=== PATIENT | male | born 1995 | race Caucasian/White ===

== ENCOUNTER 2017-02-16 22:12 | Emergency (ER) | payer OTHER ==
[~2017-02-16] VITALS: Ht 175.3 cm; Wt 99.8 kg
[~2017-02-16 22:12] MED LIST: ACET1TAB12 PO; AMOX500C2 PO; CPR500T PO; HYDR-34 PO; HYDR1CAP2 PO; IBP200T PO; METR500T PO; NAPR-243 PO; PRED20TA PO; TRAM50TA2 PO
[2017-02-16] MEDS ORDERED: SULF1TAB35 PO (22:40)
--- NOTE | 2017-02-16 22:40 | ED Integumentary General ---
General Chief Complaint: Skin/Wound Problems Stated Complaint: SPIDER BITE Source: patient Exam Limitations: no limitations History of Present Illness Time seen by provider: 22:37 Initial Comments Patient was "bitten" by something a few days ago while doing yard work. He has a red tender warm area to his right lower lang[place]. No fevers. Allergies and Home Medications Allergies Coded Allergies: No Known Drug Allergies (Unverified , 02/27/09) Home Medications Sulfamethoxazole/Trimethoprim 1 Each Tablet, 1 EACH PO BID for 14 Days Prescribed by: MARCO A MCCOLLUM on 02/16/17 7290 Constitutional: no symptoms reported Respiratory: no symptoms reported Cardiovascular: no symptoms reported Skin: see HPI All Other Systems Reviewed Negative Unless Noted: Yes Past Mfejjlm-Jibyci-Iyapfs Hx Patient Social History Alcohol Use: Occasionally Uses Recreational Drug Use: No Smoking Status: Current Everyday Smoker Type Used: Cigarettes 2nd Hand Smoke Exposure: Yes Recent Foreign Travel: No Contact w/Someone Who Travel: No Recent Hopitalizations: No Seasonal Allergies Seasonal Allergies: No Surgeries HX Surgeries: No Respiratory Hx Respiratory Disorders: No Cardiovascular Hx Cardiac Disorders: No Neurological Hx Neurological Disorders: No Reproductive System Hx Reproductive Disorders: No Genitourinary Hx Genitourinary Disorders: No Gastrointestinal Hx Gastrointestinal Disorders: No Musculoskeletal Hx Musculoskeletal Disorders: Yes (chronic left ankle pain 5 years) Musculoskeletal Disorders: Arthritis Endocrine Hx Endocrine Disorders: No HEENT HX ENT Disorders: No Cancer Hx Cancer: No Psychosocial Hx Psychiatric Problems: No Integumentary HX Skin/Integumentary Disorder: No Blood Transfusions Hx Blood Disorders: No Reviewed Nursing Assessment Reviewed/Agree w Nursing PMH: Yes Family Medical History Significant Family History: No Pertinent Family Hx Physical Exam Vital Signs Vital Sign - Last 12Hours 02/16/17 22:30 Temp 98.9 Pulse 116 Resp 20 B/P (MAP) 154/96 Pulse Ox 100 O2 Delivery Room Air Capillary Refill : General Appearance: WD/WN, no apparent distress Neck: supple Cardiovascular: regular rate, rhythm Respiratory: lungs clear Gastrointestinal: soft Neurologic/Psychiatric: alert, normal mood/affect Skin: other (there is a 5 x 5 cm area of redness indurated skin over the right distal langford) Progress/Results/Core Measures Results/Orders My Orders Orders - MARCO A MCCOLLUM MD Sulfamethoxazole/Trimet Ds Tab (Bactrim (02/16/17 22:45) Ibuprofen Tablet (Motrin Tablet) (02/16/17 22:45) Medications Given in ED Current Medications Medications Dose Ordered Sig/Jeffrey Route Start Time Stop Time Status Last Admin Dose Admin Ibuprofen 800 mg ONCE ONCE PO 02/16/17 22:45 02/16/17 22:46 DC 02/16/17 22:45 800 MG Trimethoprim/ Sulfamethoxazole 2 ea ONCE ONCE PO 02/16/17 22:45 02/16/17 22:46 DC 02/16/17 22:45 2 EA Vital Signs/I&O Vital Sign - Last 12Hours 02/16/17 22:30 Temp 98.9 Pulse 116 Resp 20 B/P (MAP) 154/96 Pulse Ox 100 O2 Delivery Room Air Departure Impression Impression: Primary Impression: infected insect bite right langford Disposition: 01 HOME, SELF-CARE Condition: Stable Departure-Patient Inst. Decision time for Depature: 22:39 Referrals: MSITA HERNANDEZ DO (PCP/Family) Primary Care Physician Patient Instructions: Cellulitis (Skin Infection), Adult (DC) Add. Discharge Instructions: Keep leg elevated .All discharge instructions reviewed with patient and/or family. Voiced understanding. Scripts Sulfamethoxazole/Trimethoprim (Bactrim Ds Tablet) 1 Each Tablet 1 EACH PO BID for 14 Days, TAB Prov: MARCO A MCCOLLUM MD 02/16/17 MARCO A MCCOLLUM MD February 16, 2017 22:40
[2017-02-16] MEDS ORDERED: TRIM/SULFAMETH 160/800 (SEPTRA DS) TAB PO ONE (22:45)
[2017-02-16] MEDS ORDERED: IBUPROFEN 800 MG (MOTRIN) TAB PO ONE (22:45)
[2017-02-16 23:01] VITALS: BP 0/0
== END 2017-02-16 23:01 | disposition home or self-care (01) ==
LOC: EDUNIT# 22:12 → ER 22:15
DX: S80.861A Insect bite (nonvenomous), right lower leg, initial encounter (principal); F17.210 Nicotine dependence, cigarettes, uncomplicated; W57.XXXA Bitten or stung by nonvenomous insect and other nonvenomous arthropods, initial encounter; Y99.8 Other external cause status
CPT/HCPCS: 99281

== ENCOUNTER 2018-01-15 14:55 | Emergency (ER) | payer OTHER ==
[~2018-01-15] VITALS: Ht 175.3 cm; Wt 99.8 kg
[~2018-01-15 14:55] MED LIST changes: +SULF1TAB35 PO
--- OUTSIDE RECORDS SUMMARY | 2018-01-15 15:22 | XMS REPORT | Continuity of Care Document ---
Author Author [facility] Organization [facility] Address Unknown Phone Unavailable Allergies Active Description Code Type Severity Reaction Onset Reported/Identified Relationship to Patient Clinical Status Yes No Known Drug Allergies [id number] Drug Allergy Mild N/A 02/27/2009 Medications There is no data. Problems Date Dx Coded Attending Type Code Diagnosis Diagnosed By 04/21/2010 Ot 525.9 04/06/2013 DONN NESS, MARY Aguila Ot 558.9 NONINF GASTROENTERIT NEC 04/06/2013 MARY POP MD Ot 599.0 URIN TRACT INFECTION NOS 04/06/2013 MARY POP MD Ot 789.07 ABDOMINAL PAIN, GENERALIZED 03/11/2015 JOAN GO Ot 719.47 JOINT PAIN-ANKLE 07/17/2015 JOAN GO Ot F17.210 NICOTINE DEPENDENCE, CIGARETTES, UNCOMPL 07/17/2015 JOAN GO Ot K02.9 DENTAL CARIES, UNSPECIFIED 07/17/2015 JOAN GO Ot K08.8 OTHER SPECIFIED DISORDERS OF TEETH AND S 02/28/2016 DEANN STEELE DO Ot F17.210 NICOTINE DEPENDENCE, CIGARETTES, UNCOMPL 02/28/2016 DEANN STEELE DO Ot S93.512A SPRAIN OF INTERPHALANGEAL JOINT OF LEFT 02/28/2016 DEANN STEELE DO Ot X58.XXXA EXPOSURE TO OTHER SPECIFIED FACTORS, INI 02/28/2016 DEANN STEELE DO Ot Y92.[address] IN [facility] NON-INSTITUT (PRIVATE 02/28/2016 DEANN STEELE DO Ot Y99.8 OTHER EXTERNAL CAUSE STATUS 02/29/2016 DEANN STEELE DO Ot F17.210 NICOTINE DEPENDENCE, CIGARETTES, UNCOMPL 02/29/2016 DEANN STEELE DO Ot S93.512A SPRAIN OF INTERPHALANGEAL JOINT OF LEFT 02/29/2016 DEANN STEELE DO Ot X58.XXXA EXPOSURE TO OTHER SPECIFIED FACTORS, INI 02/29/2016 DEANN STEELE DO Ot Y92.[address] IN [facility] NON-INSTITUT (PRIVATE 02/29/2016 DEANN STEELE DO Ot Y99.8 OTHER EXTERNAL CAUSE STATUS 02/29/2016 IVETTE , DEANN Robins Ot F17.210 NICOTINE DEPENDENCE, CIGARETTES, UNCOMPL 02/29/2016 IVETTE ARCINIEGA, DEANN Robins Ot S93.512A SPRAIN OF INTERPHALANGEAL JOINT OF LEFT 02/29/2016 DEANN STEELE DO Ot X58.XXXA EXPOSURE TO OTHER SPECIFIED FACTORS, INI 02/29/2016 IVETTE ARCINIEGA, DEANN Robins Ot Y92.[address] IN [facility] NON-INSTITUT (PRIVATE 02/29/2016 IVETTE ARCINIEGA, DEANN Robins Ot Y99.8 OTHER EXTERNAL CAUSE STATUS 02/16/2017 CHUN NESS, MARCO A Hein Ot F17.210 NICOTINE DEPENDENCE, CIGARETTES, UNCOMPL 02/16/2017 CHUN NESS, MARCO A Hein Ot S80.861A INSECT BITE (NONVENOMOUS), RIGHT LOWER L 02/16/2017 MARCO A MCCOLLUM MD Ot W57.XXXA BIT/STUNG BY NONVENOM INSECT OTH NONVE 02/16/2017 MARCO A MCCOLLUM MD Ot Y99.8 OTHER EXTERNAL CAUSE STATUS Procedures There is no data. Results There is no data. Encounters ACCT No. Visit Date/Time Discharge Status Pt. Type Provider Facility Loc./Unit Complaint [id number] 02/16/2017 22:15:00 02/16/2017 23:01:00 DIS Emergency MARCO A MCCOLLUM MD [facility] ER SPIDER BITE [id number] 02/28/2016 09:38:00 02/28/2016 10:37:00 DIS Emergency DEANN STEELE DO [facility] ER ALTERCATION/LEFT FOOT PAIN [id number] 07/17/2015 19:21:00 07/17/2015 21:05:00 DIS Emergency JOAN GO [facility] ER DENTAL PAIN [id number] 03/11/2015 19:37:00 03/11/2015 21:34:00 DIS Emergency JOAN GO [facility] ER L LEG PAIN [id number] 04/06/2013 18:18:00 04/06/2013 23:09:00 DIS Thais POP MD, MARY Aguila [facility] ER ABD PAIN [id number] 04/21/2010 19:46:00 Document Registration [email or web address] 03/11/2015 19:38:03 ACT Document Registration
--- NOTE | 2018-01-15 15:24 | ED Lower Extremity ---
General Chief Complaint: Lower Extremity Stated Complaint: LT ANKLE INJ Nursing Triage Note: PT STATES HX OF LT ANKLE FX/PAIN, YESTERDAY PT WAS DOING YARD WORK AND SLIPPED, TWISTING HIS LT ANKLE. Nursing Sepsis Screen: No Definite Risk History of Present Illness Date Seen by Provider: Jan 15, 2018 Time Seen by Provider: 15:10 Initial Comments 23-year-old male presents for left ankle pain, he reports that he was walking in his yard yesterday and twisted his left ankle. He's had multiple sprains in the past. No other injuries reported. He took no pain medication prior to arrival. Onset: yesterday Pain/Injury Location: left ankle Method of Injury: twisted Modifying Factors: Improves With Rest Allergies and Home Medications Allergies Coded Allergies: No Known Drug Allergies (Unverified , 02/27/09) Home Medications Sulfamethoxazole/Trimethoprim 1 Each Tablet, 1 EACH PO BID Prescribed by: MARCO A MCCOLLUM on 02/16/17 2240 Patient Home Medication List Home Medication List Reviewed: Yes Constitutional: no symptoms reported, see HPI Musculoskeletal: see HPI, joint pain (left ankle pain), joint swelling (left ankle) All Other Systems Reviewed Negative Unless Noted: Yes Past Sbsvgck-Ldmetr-Dkplcw Hx Past Med/Social Hx: Reviewed Nursing Past Med/Soc Hx Patient Social History Alcohol Use: Rarely Uses Alcohol Beverage of Choice: Beer, Rum Recreational Drug Use: Yes (THC, METH 2 DAYS AGO, HX OF IV) Smoking Status: Current Everyday Smoker Type Used: Cigarettes 2nd Hand Smoke Exposure: Yes Recent Foreign Travel: No Contact w/Someone Who Travel: No Recent Infectious Disease Expo: No Recent Hopitalizations: No Seasonal Allergies Seasonal Allergies: No Past Medical History Surgeries: No Respiratory: No Cardiac: No Neurological: No Reproductive Disorders: No Genitourinary: No Gastrointestinal: No Musculoskeletal: Yes (chronic left ankle pain 5 years) Arthritis Endocrine: No HEENT: No Cancer: No Psychosocial: No Integumentary: No Blood Disorders: No Family Medical History No Pertinent Family Hx Physical Exam Vital Signs Vital Signs - First Documented 01/15/18 15:04 Temp 97.4 Pulse 115 Resp 20 B/P (MAP) 157/85 (109) Pulse Ox 99 O2 Delivery Room Air Capillary Refill : Less Than 3 Seconds General Appearance: WD/WN, no apparent distress Cardiovascular: normal peripheral pulses, regular rate, rhythm Respiratory: chest non-tender, lungs clear, normal breath sounds Ankles: left ankle bone tenderness (distal fibula), left ankle limited range of motion (secondary to pain), left ankle soft tissue tenderness (over ATFL), left ankle swelling (soft tissue) Progress/Results/Core Measures My Orders Orders - WALLY HARTMANN Ankle, Left, 3 Views (01/15/18 15:26) Acetaminophen Tablet/Caplet (Tylenol T (01/15/18 15:26) Vital Signs/I&O 01/15/18 01/15/18 01/15/18 15:04 15:40 16:20 Temp 97.4 97.4 97.4 Pulse 115 115 Resp 20 20 B/P (MAP) 157/85 (109) 157/85 (109) Pulse Ox 99 99 O2 Delivery Room Air Room Air Blood Pressure Mean: 109 Progress Note : Time: 15:10 Progress Note Initial evaluation completed, recommended acetaminophen 650 mg and x-rays of the left ankle. 1600 x-ray show no acute bony abnormalities, 4 inch Jose Angel wrap applied and air cast. Discharge instructions and return precautions reviewed. Diagonstic Imaging: Xray Plain Films/CT/US/NM/MRI: ankle Comments NAME: SARA CASTELLANOS MED REC#: [id number] PT STATUS: REG ER : 1995 PHYSICIAN: WALLY HARTMANN ADMIT DATE: 01/15/18/ER Signed Date of Exam: 01/15/18 ANKLE, LEFT, 3 VIEWS INDICATION: Fall with pain and swelling to the left ankle. TIME OF EXAM: 03:58 p.m. FINDINGS: Three views of the left ankle were obtained. Alignment is normal. There is a well-corticated osseous density noted at the talonavicular joint, similar to prior ankle radiograph from 03/11/2015 likely an old fracture. Ankle mortise is well maintained. The talar dome is smooth. No acute fracture or dislocation is identified. IMPRESSION: No acute bony abnormality is detected. Dictated by: Dictated on workstation # [id number] Dict: 01/15/18 1540 Trans: 01/15/18 7250 Interpreted by: JASPER BOOKER MD Electronically signed by: JASPER BOOKER MD 01/15/18 1550 Reviewed: Reviewed by Me Departure Impression Primary Impression: Left ankle sprain Qualified Codes: S93.492A - Sprain of other ligament of left ankle, initial encounter Disposition: HOME, SELF-CARE Condition: Stable Departure-Patient Inst. Decision time for Depature: 15:50 Referrals: SMITA HERNANDEZ DO (PCP/Family) Primary Care Physician Patient Instructions: Ankle Sprain (DC) Add. Discharge Instructions: Ice to left ankle 20 minutes every 2 hours. Elevate left ankle higher than your heart. Follow-up with your primary care provider if symptoms are not improving in 2-3 days. Use Aircast and Jose Angel wrap as needed. Follow-up and emergency department for urgent health care needs. You may take ibuprofen 600 mg alternating with Tylenol 650 mg every 4 hours for pain and swelling. All discharge instructions reviewed with patient and/or family. Voiced understanding. WALLY HARTMANN Jan 15, 2018 15:24
[2018-01-15] MEDS: ACETAMINOPHEN 325 MG TABLET/CAPLET (TYLENOL) PO STA (15:40)
--- NOTE | 2018-01-15 15:45 | Diagnostic Imaging Report ---
INDICATION: Fall with pain and swelling to the left ankle. TIME OF EXAM: 03:58 p.m. FINDINGS: Three views of the left ankle were obtained. Alignment is normal. There is a well-corticated osseous density noted at the talonavicular joint, similar to prior ankle radiograph from 03/11/2015 likely an old fracture. Ankle mortise is well maintained. The talar dome is smooth. No acute fracture or dislocation is identified. IMPRESSION: No acute bony abnormality is detected. Dictated by: Dictated on workstation # [id number]
[2018-01-15 16:20] VITALS: BP 157/85
== END 2018-01-15 16:24 | disposition home or self-care (01) ==
LOC: EDUNIT# 14:55 → ER 14:57
DX: S93.402A Sprain of unspecified ligament of left ankle, initial encounter (principal); F12.10 Cannabis abuse, uncomplicated; F15.10 Other stimulant abuse, uncomplicated; F17.210 Nicotine dependence, cigarettes, uncomplicated; X50.0XXA Overexertion from strenuous movement or load, initial encounter; Y92.007 Garden or yard of unspecified non-institutional (private) residence as the place of occurrence of the external cause; Y93.01 Activity, walking, marching and hiking
CPT/HCPCS: 73610

== ENCOUNTER 2018-03-04 17:48 | Emergency (ER) | payer OTHER ==
[~2018-03-04] VITALS: Ht 177.8 cm; Wt 136.1 kg
--- OUTSIDE RECORDS SUMMARY | 2018-03-04 17:54 | XMS REPORT | Continuity of Care Document ---
Author Author [facility] Organization [facility] Address Unknown Phone Unavailable Allergies Active Description Code Type Severity Reaction Onset Reported/Identified Relationship to Patient Clinical Status Yes No Known Drug Allergies [id number] Drug Allergy Mild N/A 02/27/2009 Medications There [...] SPECIFIED DISORDERS OF TEETH AND S 02/28/2016 RAFAELA STEELE DOA Julienne Ot F17.210 NICOTINE DEPENDENCE, CIGARETTES, UNCOMPL 02/28/2016 DEANN STEELE DO Ot S93.512A SPRAIN OF INTERPHALANGEAL JOINT OF LEFT 02/28/2016 RAFAELA STEELE DOA Julienne Ot X58.XXXA EXPOSURE TO OTHER SPECIFIED FACTORS, INI 02/28/2016 DEANN STEELE DO Ot Y92.[address] IN [facility] NON-INSTITUT (PRIVATE 02/28/2016 DEANN STEELE DO Ot Y99.8 OTHER EXTERNAL CAUSE STATUS 02/29/2016 DEANN STEELE DO Ot F17.210 NICOTINE DEPENDENCE, CIGARETTES, UNCOMPL 02/29/2016 DEANN STEELE DO Ot S93.512A SPRAIN OF INTERPHALANGEAL JOINT OF LEFT 02/29/2016 IVETTE DO, DEANN K Ot X58.XXXA EXPOSURE TO OTHER SPECIFIED FACTORS, INI 02/29/2016 IVETTE DO, DEANN K Ot Y92.[address] IN [facility] NON-[facility] (PRIVATE 02/29/2016 IVETTE DO, DEANN K Ot Y99.8 OTHER EXTERNAL CAUSE STATUS 02/29/2016 IVETTE DO, DEANN K Ot F17.210 NICOTINE DEPENDENCE, CIGARETTES, UNCOMPL 02/29/2016 IVETTE DO, DEANN K Ot S93.512A SPRAIN OF INTERPHALANGEAL JOINT OF LEFT 02/29/2016 IVETTE DO, DEANN K Ot X58.XXXA EXPOSURE TO OTHER SPECIFIED FACTORS, INI 02/29/2016 IVETTE DO, DEANN K Ot Y92.[address] IN [facility] NON-[facility] (PRIVATE 02/29/2016 IVETTE DO, DEANN K Ot Y99.8 OTHER EXTERNAL CAUSE STATUS 02/16/2017 CHUN NESS, MARCO A Hein Ot F17.210 NICOTINE DEPENDENCE, CIGARETTES, UNCOMPL 02/16/2017 CHUN NESS, MARCO A A Ot S80.861A INSECT BITE (NONVENOMOUS), RIGHT LOWER L 02/16/2017 CHUN NESS, MARCO A A Ot W57.XXXA BIT/STUNG BY NONVENOM INSECT OTH NONVE 02/16/2017 CHUN NESS, MARCO A A Ot Y99.8 OTHER EXTERNAL CAUSE STATUS 01/15/2018 SHAHBAZ, WALLY CLINICAL QUALITY ASSURANCE ASSOCIATE Ot F12.10 CANNABIS ABUSE, UNCOMPLICATED 01/15/2018 SHAHBAZ, WALLY CLINICAL QUALITY ASSURANCE ASSOCIATE Ot F15.10 OTHER STIMULANT ABUSE, UNCOMPLICATED 01/15/2018 SHAHBAZ, WALLY CLINICAL QUALITY ASSURANCE ASSOCIATE Ot F17.210 NICOTINE DEPENDENCE, CIGARETTES, UNCOMPL 01/15/2018 SHAHBAZ, WALLY CLINICAL QUALITY ASSURANCE ASSOCIATE Ot S93.402A SPRAIN OF UNSPECIFIED LIGAMENT OF LEFT A 01/15/2018 SHAHBAZ, WALLY CLINICAL QUALITY ASSURANCE ASSOCIATE Ot X50.0XXA OVEREXERTION FROM STRENUOUS MOVEMENT OR 01/15/2018 SHAHBAZ WALLY CLINICAL QUALITY ASSURANCE ASSOCIATE Ot Y92.007 [place]ARD[place] OR YARD OF [facility] RESI 01/15/2018 SHAHBAZ WALLY CLINICAL QUALITY ASSURANCE ASSOCIATE Ot Y93.01 ACTIVITY, WALKING, MARCHING AND HIKING 01/17/2018 SHAHBAZ, WALLY CLINICAL QUALITY ASSURANCE ASSOCIATE Ot F12.10 CANNABIS ABUSE, UNCOMPLICATED 01/17/2018 SHAHBAZ, WALLY CLINICAL QUALITY ASSURANCE ASSOCIATE Ot F15.10 OTHER STIMULANT ABUSE, UNCOMPLICATED 01/17/2018 SHAHBAZ, WALLY CLINICAL QUALITY ASSURANCE ASSOCIATE Ot F17.210 NICOTINE DEPENDENCE, CIGARETTES, UNCOMPL 01/17/2018 SHAHBAZ, WALLY CLINICAL QUALITY ASSURANCE ASSOCIATE Ot S93.402A SPRAIN OF UNSPECIFIED LIGAMENT OF LEFT A 01/17/2018 SHAHBAZ, WALLY CLINICAL QUALITY ASSURANCE ASSOCIATE Ot X50.0XXA OVEREXERTION FROM STRENUOUS MOVEMENT OR 01/17/2018 SHAHBAZ, WALLY CLINICAL QUALITY ASSURANCE ASSOCIATE Ot Y92.007 [place] OR [place] OF [facility] NON-INSTITUT RESI 01/17/2018 SHAHBAZ, WALLY CLINICAL QUALITY ASSURANCE ASSOCIATE Ot Y93.01 ACTIVITY, WALKING, MARCHING AND HIKING 01/21/2018 SHAHBAZ, WALLY CLINICAL QUALITY ASSURANCE ASSOCIATE Ot F12.10 CANNABIS ABUSE, UNCOMPLICATED 01/21/2018 SHAHBAZ, WALLY CLINICAL QUALITY ASSURANCE ASSOCIATE Ot F15.10 OTHER STIMULANT ABUSE, UNCOMPLICATED 01/21/2018 SHAHBAZ, WALLY CLINICAL QUALITY ASSURANCE ASSOCIATE Ot F17.210 NICOTINE DEPENDENCE, CIGARETTES, UNCOMPL 01/21/2018 SHAHBAZ, WALLY CLINICAL QUALITY ASSURANCE ASSOCIATE Ot S93.402A SPRAIN OF UNSPECIFIED LIGAMENT OF LEFT A 01/21/2018 SHAHBAZ, WALLY CLINICAL QUALITY ASSURANCE ASSOCIATE Ot X50.0XXA OVEREXERTION FROM STRENUOUS MOVEMENT OR 01/21/2018 SHAHBAZ, WALLY CLINICAL QUALITY ASSURANCE ASSOCIATE Ot Y92.007 [place] OF [facility] NON-INSTITUT RESI 01/21/2018 SHAHBAZ, WALLY CLINICAL QUALITY ASSURANCE ASSOCIATE Ot Y93.01 ACTIVITY, WALKING, MARCHING AND HIKING Procedures There is no data. Results There is no data. Encounters ACCT No. Visit Date/Time Discharge Status Pt. Type Provider Facility Loc./Unit Complaint [id number] 01/15/2018 14:57:00 01/15/2018 16:24:00 DIS Emergency SHAHBAZWALLY Manley CLINICAL QUALITY ASSURANCE ASSOCIATE [facility] ER LT ANKLE INJ [id number] 02/16/2017 22:15:00 02/16/2017 23:01:00 DIS Emergency MARCO A MCCOLLUM MD [facility] ER SPIDER BITE [id number] 02/28/2016 09:38:00 02/28/2016 10:37:00 DIS Emergency DEANN STEELE DO [facility] ER ALTERCATION/LEFT FOOT PAIN [id number] 07/17/2015 19:21:00 07/17/2015 21:05:00 DIS Emergency JOAN GO [facility] ER DENTAL PAIN [id number] 03/11/2015 19:37:00 03/11/2015 21:34:00 DIS Emergency JOAN GO [facility] ER L LEG PAIN [id number] 04/06/2013 18:18:00 04/06/2013 23:09:00 DIS Emergency MARY POP MD [facility] ER ABD PAIN [id number] 04/21/2010 19:46:00 Document Registration [email or web address] 03/11/2015 19:38:03 ACT Document Registration
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
[2018-03-04 19:55] VITALS: BP 140/95
== END 2018-03-04 19:57 | disposition home or self-care (01) ==
LOC: EDUNIT# 17:48 → ER 17:50
DX: S06.0X0A Concussion without loss of consciousness, initial encounter (principal); S00.03XA Contusion of scalp, initial encounter; H53.8 Other visual disturbances; R22.1 Localized swelling, mass and lump, neck; Z77.22 Contact with and (suspected) exposure to environmental tobacco smoke (acute) (chronic); V49.50XA Passenger injured in collision with unspecified motor vehicles in traffic accident, initial encounter
CPT/HCPCS: 70450

== ENCOUNTER → 2018-03-13 | Outpatient (CLI) | payer OTHER ==
--- NOTE | 2018-03-13 16:28 | Diagnostic Imaging Report ---
PROCEDURE: US Thyroid. TECHNIQUE: Multiple real-time grayscale images were obtained of the thyroid in various projections. INDICATION: Thyromegaly. COMPARISON: None. FINDINGS: The right thyroid lobe measures 5.8 cm x 2.2 cm x 1.8 cm and the left lobe measures 5.2 cm x 1.8 cm x 1.4 cm. The isthmus measures about 3 mm. Thyroid gland is mildly heterogeneous. There is a 2.9 cm x 2.3 cm x 2 cm predominantly cystic nodule with some internal echoes and ring down artifact seen within the inferior aspect of the right thyroid lobe. This shows no internal vascularity, it is taller than wide and fairly circumscribed. This is a TI-RADS 1 lesion, not suspicious. No additional focal nodule is seen. IMPRESSION: 1. There is a 2.9 cm benign-appearing cystic nodule in the inferior right thyroid lobe. This may represent a colloid cyst. 2. The thyroid gland is otherwise mildly heterogeneous. No additional focal abnormality is suspected. Dictated by: Dictated on workstation # [id number]
== END ==
LOC: RAD 14:01
PROVIDERS: ATTEND Family Medicine
DX: E04.1 Nontoxic single thyroid nodule (principal)
CPT/HCPCS: 76536

== ENCOUNTER 2018-07-06 18:08 | Emergency (ER) | payer OTHER ==
[~2018-07-06] VITALS: Ht 172.7 cm; Wt 72.6 kg
--- OUTSIDE RECORDS SUMMARY | 2018-07-06 18:13 | XMS REPORT ---
Author Author VALERIY DIXON Organization [facility] Address [address] [place] [address] Care Team Providers Care Oracle Ebs Architect Name Role Phone VALERIY DIXON Unavailable PROBLEMS Type Condition ICD9-CM Code OBF49-NP Code Onset Dates Condition Status SNOMED Code Problem 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 Active 00021004 ALLERGIES No Information ENCOUNTERS Encounter Location Date Diagnosis [facility] [id number] [place] [phone] Feb, [facility] [address] [phone] Feb, 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 and Tachycardia R00.0 [facility] [id number] [place] [phone] Jun, Dental examination Z01.20 [facility] [id number] [place] [phone] Mar, [facility] [id number] [place] [id number] Jul, Dental examination Z01.20 and Dental caries K02.9 IMMUNIZATIONS No Known Immunizations SOCIAL HISTORY Never Assessed REASON FOR VISIT Returned call PLAN OF CARE VITAL SIGNS MEDICATIONS Unknown Medications RESULTS No Results PROCEDURES No Known procedures INSTRUCTIONS MEDICATIONS ADMINISTERED No Known Medications
--- OUTSIDE RECORDS SUMMARY | 2018-07-06 18:13 | XMS REPORT ---
Author Author VALERIY DIXON Organization [facility] Address [address] [place] [address] Care Team Providers Care Clinical Data Associate Name Role Phone VALERIY DIXON Unavailable PROBLEMS Type Condition ICD9-CM Code WHH19-CF Code Onset Dates Condition Status SNOMED Code Problem 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 Active [id number] ALLERGIES No Known Allergies ENCOUNTERS Encounter Location Date Diagnosis [facility] [address] [phone] Feb, [facility] [address] [phone] Feb, 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 and Tachycardia R00.0 [facility] [id number] [place] [phone] Jun, Dental examination Z01.20 [facility] [address] [phone] Mar, [facility] [address] [id number] Jul, Dental examination Z01.20 and Dental caries K02.9 IMMUNIZATIONS No Known Immunizations SOCIAL HISTORY Never Assessed REASON FOR VISIT lump in right side of neck x 3 weeks, patient states that it is difficult to swallow at times and it is often painful as well-awoods PLAN OF CARE Activity Details Follow Up 4 Weeks with uLcy bajwa labs and US Reason: VITAL SIGNS Height 70 in 2018-03-10 Weight 225.8 lbs 2018-03-10 Temperature 98.8 degrees Fahrenheit 2018-03-10 Heart Rate 108 bpm 2018-03-10 Respiratory Rate 20 2018-03-10 BMI 32.40 kg/m2 2018-03-10 Blood pressure systolic 154 mmHg 2018-03-10 Blood pressure diastolic 88 mmHg 2018-03-10 MEDICATIONS Medication Instructions Dosage Frequency Start Date End Date Duration Status Ibuprofen 400 MG Orally every 6 hrs 6h Active RESULTS No Results PROCEDURES Procedure Date Ordered Result Body Site COMPREHEN METABOLIC PANEL March 10, 2018 COMPLETE CBC W/AUTO DIFF WBC March 10, 2018 VENIPUNCT, ROUTINE* March 10, 2018 ASSAY OF PHOSPHORUS March 10, 2018 ASSAY OF MAGNESIUM March 10, 2018 ASSAY OF FREE THYROXINE March 10, 2018 ASSAY THYROID STIM HORMONE March 10, 2018 INSTRUCTIONS MEDICATIONS ADMINISTERED No Known Medications
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
[2018-07-06] MEDS ORDERED: NS IV 1000 ML 1,000 ML IV ONE (18:41)
[2018-07-06] MEDS ORDERED: KETOROLAC 30 MG/ML VIAL IVP STA (18:41)
[2018-07-06] MEDS ORDERED: DEXAMETHASONE 10 MG/ML (DECADRON) 1 ML VIAL IV ONE (18:45)
--- NOTE | 2018-07-06 18:48 | ED General ---
General Stated Complaint: CONGESTED,FEVER,SORE THROAT Source of Information: Patient Exam Limitations: No Limitations History of Present Illness Date Seen by Provider: Jul 06, 2018 Time Seen by Provider: 18:35 Initial Comments Here with report of 8 days of upper respiratory congestion that is worsening as well as sore throat, mild cough and fullness in the face of the head. States that he gets sinus infections. Reports this feels like that. Has not taken anything with regard antibiotics for that but he is taken 6 aspirins every 6 hours for tooth pain reportedly. Also reports that he has thyroid cancer that has not gotten treated. He found out about that about 6 months ago. He has not gone back for further evaluation. He had CT scan and ultrasound done here. Does report left upper tooth pain with the congestion. Timing/Duration: 1 Week, Getting Worse Severity: Moderate Associated Systoms: No Chest Pain, No Cough; Fever/Chills; No Nausea/Vomiting, No Shortness of Air, No Weakness Allergies and Home Medications Allergies Coded Allergies: No Known Drug Allergies (Unverified , 02/27/09) Home Medications Sulfamethoxazole/Trimethoprim 1 Each Tablet, 1 EACH PO BID Prescribed by: MARCO A MCCOLLUM on 02/16/17 5030 Patient Home Medication List Home Medication List Reviewed: Yes Review of Systems Review of Systems Constitutional: see HPI, chills, fever EENTM: ear pain, nose congestion, throat pain, throat swelling, other (sinus congestion and tenderness and ear pain on the left) Respiratory: see HPI Cardiovascular: No chest pain, No palpitations Gastrointestinal: No abdominal pain, No nausea, No vomiting Genitourinary: no symptoms reported Musculoskeletal: no symptoms reported Skin: no symptoms reported Psychiatric/Neurological: No Symptoms Reported All Other Systems Reviewed Negative Unless Noted: Yes Past Iwtndhb-Fydvzg-Mkfvkh Hx Past Med/Social Hx: Reviewed Nursing Past Med/Soc Hx Patient Social History Alcohol Use: Occasionally Uses Alcohol Beverage of Choice: Beer, Rum Recreational Drug Use: No Smoking Status: Current Everyday Smoker Type Used: Cigarettes 2nd Hand Smoke Exposure: Yes Recent Foreign Travel: No Contact w/Someone Who Travel: No Recent Hopitalizations: No Seasonal Allergies Seasonal Allergies: No Past Medical History Surgeries: Yes Ear Surgery Respiratory: No Cardiac: No Neurological: No Reproductive Disorders: No Genitourinary: No Gastrointestinal: No Musculoskeletal: Yes (chronic left ankle pain 5 years) Arthritis Endocrine: No HEENT: No Cancer: No Psychosocial: No Integumentary: No Blood Disorders: No Family Medical History Reviewed Nursing Family Hx Cancer Physical Exam Vital Signs Vital Signs - First Documented 07/06/18 18:32 Temp 98.5 Pulse 123 Resp 16 B/P (MAP) 155/95 (115) Pulse Ox 100 O2 Delivery Room Air Capillary Refill : Height, Weight, BMI Height: 5'10.00" Weight: 300lbs. oz. 136.879926md; 29.83 BMI Method:Estimated General Appearance: WD/WN, Mild Distress HEENT: PERRL/EOMI, Pharyngeal Erythema, Tonsillar Exudate, Tonsillar Enlargement, Other (tender to the maxillary sinuses left greater than right) Neck: Full Range of Motion, Supple, Lymphadenopathy (L), Lymphadenopathy (R) Respiratory: Lungs Clear, Normal Breath Sounds Cardiovascular: No Murmur, Tachycardia Gastrointestinal: Non Tender, Soft Back: Normal Inspection, No CVA Tenderness, No Vertebral Tenderness Extremity: Normal Range of Motion, Non Tender Neurologic/Psychiatric: Alert, Oriented x3 Skin: Normal Color, Warm/Dry Progress/Results/Core Measures Suspected Sepsis SIRS Temperature: Pulse: Respiratory Rate: Laboratory Tests 07/06/18 19:14: White Blood Count 9.8 Blood Pressure / Mean: Laboratory Tests 07/06/18 19:14: Creatinine 0.86, Platelet Count 168, Total Bilirubin 0.8 Results/Orders Lab Results Laboratory Tests Test 07/06/18 19:14 Range/Units White Blood Count 9.8 4.3-11.0 10^3/uL Red Blood Count 5.37 4.35-5.85 10^6/uL Hemoglobin 16.3 13.3-17.7 G/DL Hematocrit 45 40-54 % Mean Corpuscular Volume 83 80-99 FL Mean Corpuscular Hemoglobin 30 25-34 PG Mean Corpuscular Hemoglobin Concent 37 H 32-36 G/DL Red Cell Distribution Width 13.5 10.0-14.5 % Platelet Count 168 130-400 10^3/uL Mean Platelet Volume 9.9 7.4-10.4 FL Neutrophils (%) (Auto) 69 42-75 % Lymphocytes (%) (Auto) 19 12-44 % Monocytes (%) (Auto) 8 0-12 % Eosinophils (%) (Auto) 4 0-10 % Basophils (%) (Auto) 0 0-10 % Neutrophils # (Auto) 6.8 1.8-7.8 X 10^3 Lymphocytes # (Auto) 1.9 1.0-4.0 X 10^3 Monocytes # (Auto) 0.8 0.0-1.0 X 10^3 Eosinophils # (Auto) 0.4 H 0.0-0.3 10^3/uL Basophils # (Auto) 0.0 0.0-0.1 10^3/uL Sodium Level 139 135-145 MMOL/L Potassium Level 4.2 3.6-5.0 MMOL/L Chloride Level 103 98-107 MMOL/L Carbon Dioxide Level 24 21-32 MMOL/L Anion Gap 12 5-14 MMOL/L Blood Urea Nitrogen 8 7-18 MG/DL Creatinine 0.86 0.60-1.30 MG/DL Estimat Glomerular Filtration Rate > 60 BUN/Creatinine Ratio 9 Glucose Level 103 70-105 MG/DL Calcium Level 10.0 8.5-10.1 MG/DL Corrected Calcium 8.5-10.1 MG/DL Total Bilirubin 0.8 0.1-1.0 MG/DL Aspartate Amino Transf (AST/SGOT) 21 5-34 U/L Alanine Aminotransferase (ALT/SGPT) 43 0-55 U/L Alkaline Phosphatase 76 40-136 U/L Total Protein 7.7 6.4-8.2 GM/DL Albumin 4.7 H 3.2-4.5 GM/DL Salicylates Level < 5.0 L 5.0-20.0 MG/DL Acetaminophen Level < 10 L 10-30 UG/ML My Orders Orders - MARY POP MD Acetaminophen (07/06/18 18:41) Cbc With Automated Diff (07/06/18 18:41) Comprehensive Metabolic Panel (07/06/18 18:41) Salicylate (07/06/18 18:41) Saline Lock/Iv-Start (07/06/18 18:41) Ns Iv 1000 Ml (Sodium Chloride 0.9%) (07/06/18 18:41) Ketorolac Injection (Toradol Injection) (07/06/18 18:41) Dexamethasone Injection (Decadron Inject (07/06/18 18:45) Amoxicillin Capsule (Polymox Capsule) (07/06/18 20:10) Medications Given in ED Current Medications Medications Dose Ordered Sig/Jeffrey Route Start Time Stop Time Status Last Admin Dose Admin Dexamethasone Sodium Phosphate 10 mg ONCE ONCE IV 07/06/18 18:45 07/06/18 18:46 DC 07/06/18 19:45 10 MG Sodium Chloride 1,000 ml @ 0 mls/hr Q0M ONCE IV 07/06/18 18:41 07/06/18 18:43 DC 07/06/18 19:45 0 MLS/HR Vital Signs/I&O 07/06/18 18:32 Temp 98.5 Pulse 123 Resp 16 B/P (MAP) 155/95 (115) Pulse Ox 100 O2 Delivery Room Air Capillary Refill : Progress Note : Progress Note Seen and evaluated. I did review previous history and patient has a benign appearing cyst on the thyroid that this not give suspicion for cancer per radiology report on ultrasound. IV established due to tachycardia and the need to evaluate labs. We will check basic labs plus aspirin Tylenol level given patient's reported dosing for pain medicines. Patient does have findings consistent with strep pharyngitis as well as sinusitis so we will treat those. Monitor patient. 2014: Overall doing better with decreased heart rate. Labs reviewed and no significant findings. Discharged home with return precautions. Patient verbalize understanding instructions and agreement with plan. Started on amoxicillin 1000 mg by mouth times one now. Departure Impression Primary Impression: Acute sinusitis Qualified Codes: J01.00 - Acute maxillary sinusitis, unspecified Additional Impression: Pharyngitis Qualified Codes: J02.9 - Acute pharyngitis, unspecified Disposition: HOME, SELF-CARE Condition: Improved Departure-Patient Inst. Decision time for Depature: 20:16 Referrals: SMITA HERNANDEZ DO (PCP/Family) Primary Care Physician Patient Instructions: Sinusitis in Adults, Sore Throat, Adult (DC) Add. Discharge Instructions: Drink plenty of fluids. You may take Tylenol/acetaminophen 1000 mg every 8 hours as needed for pain. You may take ibuprofen 800 mg every 8 hours as needed for pain. Do not exceed these doses. Follow-up with your DrFrancisco in a few days for recheck. Return for worse pain, fever, vomiting, weakness, breathing problems or other concerns as needed. Scripts Amoxicillin (Amoxicillin) 500 Mg Capsule 1000 MG PO TID, #42 CAP 0 Refills Prov: MARY POP MD 07/06/18 MARY POP MD Jul 06, 2018 18:48
[2018-07-06 19:20] LABS: BASOPHILS % (AUTO) 0 % (0-10); EOSINOPHILS # (AUTO) 0.4 10^3/uL (0.0-0.3); EOSINOPHILS % (AUTO) 4 % (0-10); HEMATOCRIT 45 % (40-54); HEMOGLOBIN 16.3 G/DL (13.3-17.7); LYMPHOCYTES # (AUTO) 1.9 X 10^3 (1.0-4.0); LYMPHOCYTES % (AUTO) 19 % (12-44); MEAN CORPUSCULAR HEMOGLOBIN 30 PG (25-34); MEAN CORPUSCULAR HGB CONC 37 G/DL (32-36); MEAN CORPUSCULAR VOLUME 83 FL (80-99); MEAN PLATELET VOLUME 9.9 FL (7.4-10.4); MONOCYTES # (AUTO) 0.8 X 10^3 (0.0-1.0); MONOCYTES % (AUTO) 8 % (0-12); NEUTROPHILS # (AUTO) 6.8 X 10^3 (1.8-7.8); NEUTROPHILS % (AUTO) 69 % (42-75); PLATELET COUNT 168 10^3/uL (130-400); RED BLOOD COUNT 5.37 10^6/uL (4.35-5.85); RED CELL DISTRIBUTION WIDTH 13.5 % (10.0-14.5); WHITE BLOOD COUNT 9.8 10^3/uL (4.3-11.0)
[2018-07-06 19:46] LABS: ALANINE AMINOTRANSFERASE 43 U/L (0-55); ALBUMIN 4.7 GM/DL (3.2-4.5); ALKALINE PHOSPHATASE 76 U/L (40-136); BILIRUBIN,TOTAL 0.8 MG/DL (0.1-1.0); BUN/CREATININE RATIO 9; CARBON DIOXIDE 24 MMOL/L (21-32); CHLORIDE 103 MMOL/L (98-107); CREATININE SERUM 0.86 MG/DL (0.60-1.30); GFR ESTIMATED > 60; GLUCOSE 103 MG/DL (70-105); POTASSIUM 4.2 MMOL/L (3.6-5.0); SALICYLATE < 5.0 MG/DL (5.0-20.0); SODIUM 139 MMOL/L (135-145); TOTAL PROTEIN 7.7 GM/DL (6.4-8.2)
[2018-07-06 19:48] LABS: ACETAMINOPHEN < 10 UG/ML (10-30)
[2018-07-06] MEDS ORDERED: AMOXICILLIN 500 MG (POLYMOX) CAP PO STA (20:10)
[2018-07-06] MEDS ORDERED: AMOX500C2 PO (20:18)
[2018-07-06 20:36] VITALS: BP 152/87
== END 2018-07-06 20:38 | disposition home or self-care (01) ==
LOC: EDUNIT# 18:08 → ER 18:09
DX: J01.00 Acute maxillary sinusitis, unspecified (principal); J02.9 Acute pharyngitis, unspecified; F17.210 Nicotine dependence, cigarettes, uncomplicated
CPT/HCPCS: 36415; 80053; 80329; 85025; 96361; 96374; 96375

== ENCOUNTER 2019-04-05 22:58 | Emergency (ER) | payer SELFPAY ==
[~2019-04-05] VITALS: Ht 177.8 cm; Wt 99.8 kg
[2019-04-05] MEDS ORDERED: LIDOCAINE 2% 20 ML (XYLOCAINE) VIAL INJ STA (23:14)
[2019-04-05] MEDS ORDERED: TETANUS,DIPTH,PERTUSS P/F (BOOSTRIX) 0.5 ML VIAL IM ONE (23:15)
[2019-04-05] MEDS ORDERED: LIDOCAINE PF 2% 5 ML (XYLOCAINE) VIAL ONE (23:20)
[2019-04-05] MEDS ORDERED: LIDOCAINE PF 2% 5 ML (XYLOCAINE) VIAL INJ PRN (23:30)
[2019-04-06] MEDS ORDERED: TRIM/SULFAMETH 160/800 (SEPTRA DS) TAB PO ONE
[2019-04-06] MEDS ORDERED: SULF1TAB35 PO (00:02)
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
[2019-04-06 00:08] VITALS: BP 157/98
--- NOTE | 2019-04-06 07:37 | Diagnostic Imaging Report ---
INDICATION: Laceration. TECHNIQUE: Single view hand with 2 additional views middle finger, 11:30 PM. CORRELATION STUDY: None FINDINGS: It is noted this is nonspecific as to right versus left. There is dressing material over the middle finger. Soft tissues are somewhat obscured, definitive soft tissue foreign bodies not visualized. Osseous structures of the middle finger intact. Imaging of the remainder of the hand also demonstrates no acute bony abnormality. IMPRESSION: 1. Negative for acute bony abnormality of the hand and/or middle finger. Soft tissue assessment somewhat obscured by overlying dressing material but appears without definitive evidence foreign body. Dictated by: Dictated on workstation # [id number]
== END 2019-04-06 00:08 | disposition home or self-care (01) ==
LOC: EDUNIT# 22:58 → ER 22:59
DX: S61.212A Laceration without foreign body of right middle finger without damage to nail, initial encounter (principal); F17.210 Nicotine dependence, cigarettes, uncomplicated; Z23 Encounter for immunization; W26.0XXA Contact with knife, initial encounter
CPT/HCPCS: 12011; 73140; 90471; 90715

== ENCOUNTER 2019-05-02 16:08 | Emergency (ER) | payer SELFPAY ==
[~2019-05-02] VITALS: Ht 172.7 cm; Wt 99.8 kg
[2019-05-02] MEDS ORDERED: methylPREDNISolone 125 MG (Solu-MEDROL) VIAL IVP ONE (17:30)
[2019-05-02] MEDS ORDERED: FAMOTIDINE 20MG/2ML IV (PEPCID) IVP ONE (17:30)
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
[2019-05-02] MEDS ORDERED: PRD20T PO (17:35)
[2019-05-02] MEDS ORDERED: FAMO-119 PO (17:35)
[2019-05-02] MEDS ORDERED: TR1C15 TP (17:35)
[2019-05-02 17:51] LABS: BASOPHILS % (AUTO) 0 % (0-10); EOSINOPHILS # (AUTO) 0.8 10^3/uL (0.0-0.3); EOSINOPHILS % (AUTO) 9 % (0-10); HEMATOCRIT 50 % (40-54); HEMOGLOBIN 17.2 G/DL (13.3-17.7); LYMPHOCYTES # (AUTO) 1.7 X 10^3 (1.0-4.0); LYMPHOCYTES % (AUTO) 19 % (12-44); MEAN CORPUSCULAR HEMOGLOBIN 30 PG (25-34); MEAN CORPUSCULAR HGB CONC 34 G/DL (32-36); MEAN CORPUSCULAR VOLUME 89 FL (80-99); MEAN PLATELET VOLUME 10.6 FL (7.4-10.4); MONOCYTES # (AUTO) 0.6 X 10^3 (0.0-1.0); MONOCYTES % (AUTO) 7 % (0-12); NEUTROPHILS # (AUTO) 5.8 X 10^3 (1.8-7.8); NEUTROPHILS % (AUTO) 65 % (42-75); PLATELET COUNT 158 10^3/uL (130-400); WHITE BLOOD COUNT 8.9 10^3/uL (4.3-11.0)
[2019-05-02 18:01] LABS: INR 0.9 (0.8-1.4); PROTHROMBIN TIME PATIENT 12.9 SEC (12.2-14.7)
[2019-05-02 18:15] VITALS: BP 142/79
== END 2019-05-02 18:15 | disposition home or self-care (01) ==
LOC: EDUNIT# 16:08 → ER 16:09
DX: L23.7 Allergic contact dermatitis due to plants, except food (principal); M19.072 Primary osteoarthritis, left ankle and foot; Z77.22 Contact with and (suspected) exposure to environmental tobacco smoke (acute) (chronic)
CPT/HCPCS: 36415; 85025; 85610; 99282

== ENCOUNTER 2019-09-29 22:46 | Emergency (ER) | payer SELFPAY ==
[~2019-09-29] VITALS: Ht 180.3 cm; Wt 105.4 kg
[~2019-09-29 22:46] MED LIST changes: +FAMO-119 PO; +PRD20T PO; +TR1C15 TP; -TRAM50TA2 PO; +TRM50T PO
[2019-09-29] MEDS ORDERED: fentaNYL INJECTION 100 MCG/2 ML AMP IVP ONE (23:45)
[2019-09-29] MEDS ORDERED: KETOROLAC 30 MG/ML VIAL IVP ONE (23:45)
--- NOTE | 2019-09-30 00:18 | ED General ---
General Stated Complaint: L ARM PAIN Source of Information: Patient Exam Limitations: No Limitations History of Present Illness Date Seen by Provider: Sep 29, 2019 Time Seen by Provider: 23:30 Initial Comments This 24-year-old young man presents to the emergency room with complaints of pain and weakness extending from the neck into his left shoulder and arm. Symptoms started about a week ago when he felt a popping in his neck when he was working on a vehicle. Symptoms have worsened in that time and the pain is not responsive to ibuprofen. He complains of numbness and weakness in the arm and hand somewhat sparing the ulnar nerve distribution. He has significant red reduction in range of motion secondary to pain and weakness. Dr. HERNANDEZ is his primary care provider. Allergies and Home Medications Allergies Coded Allergies: No Known Drug Allergies (Unverified , 02/27/09) Home Medications Amoxicillin 500 Mg Capsule, 1,000 MG PO TID Prescribed by: MARY POP on 07/06/182017 Famotidine 20 Mg Tablet, 20 MG PO BID PRN Prescribed by: HARI CRUZ MD on 05/02/191734 Gabapentin 300 Mg Capsule, 300 MG PO BID PRN for PAIN-MODERATE (5-7) Prescribed by: MANISHA BRIGHT on 09/30/19118 Hydrocodone Bit/Acetaminophen 1 Tab Tab, 1-2 EACH PO Q6H PRN for PAIN-MODERATE Prescribed by: MANISHA BRIGHT on 09/30/19118 Prednisone 20 Mg Tab, 40 MG PO DAILY Prescribed by: HARI CRUZ MD on 05/02/191734 Prednisone 20 Mg Tab, 40 MG PO DAILY Prescribed by: MANISHA BRIGHT on 09/30/19118 Sulfamethoxazole/Trimethoprim 1 Each Tablet, 1 EACH PO BID Prescribed by: MARCO A MCCOLLUM on 02/16/17 2240 Sulfamethoxazole/Trimethoprim 1 Each Tablet, 1 EACH PO BID Prescribed by: DEANN STEELE on 04/06/19 0002 Triamcinolone Acet 15 Gm Cr, 80 GM TP TID PRN for RASH Prescribed by: HARI CRUZ MD on 05/02/191734 Patient Home Medication List Home Medication List Reviewed: Yes Review of Systems Review of Systems Constitutional: no symptoms reported EENTM: no symptoms reported Respiratory: no symptoms reported Cardiovascular: no symptoms reported Gastrointestinal: no symptoms reported Genitourinary: no symptoms reported Musculoskeletal: see HPI Skin: no symptoms reported Psychiatric/Neurological: See HPI Hematologic/Lymphatic: No Symptoms Reported Past Juxrokn-Giqazr-Wvxagw Hx Past Med/Social Hx: Reviewed and Corrections made Patient Social History Alcohol Beverage of Choice: Beer, Rum Drug of Choice: HX OF THC AND METH USE--DENIES IV USE Type Used: Cigarettes 2nd Hand Smoke Exposure: Yes Recent Foreign Travel: No Contact w/Someone Who Travel: No Recent Hopitalizations: No Immunizations Up To Date Tetanus Booster (TDap): Unknown Seasonal Allergies Seasonal Allergies: No Past Medical History Surgeries: Yes Ear Surgery Respiratory: No Cardiac: No Neurological: No Reproductive Disorders: No Genitourinary: No Gastrointestinal: No Musculoskeletal: Yes (chronic left ankle pain 5 years) Arthritis Endocrine: Yes (history of thyroid nodule) HEENT: No Cancer: No Psychosocial: No Integumentary: No Blood Disorders: No Family Medical History Cancer Physical Exam Vital Signs Capillary Refill : Height, Weight, BMI Height: 5'8.00" Weight: 220lbs. oz. 99.870408rc; 29.83 BMI Method:Stated General Appearance: WD/WN, Moderate Distress HEENT: PERRL/EOMI, Normal ENT Inspection Neck: Normal Inspection, Other (tenderness in the musculature of the left lateral and posterior neck as well as over the cervical spine.) Respiratory: Lungs Clear, Normal Breath Sounds, No Accessory Muscle Use, No Respiratory Distress Cardiovascular: Regular Rate, Rhythm, No Edema, No Murmur Extremity: Normal Inspection, No Pedal Edema, Other (radial pulse is strong. Sensation is reduced in the first through third fingers. Counter Intelligence strength is significantly reduced. Extension at the shoulder and abduction limited secondary to pain and weakness.) Neurologic/Psychiatric: Alert, Oriented x3, Normal Mood/Affect, cover seamer II-XII Norm as Tested Skin: Normal Color, Warm/Dry Procedures/Interventions Suture Size: 4-0 Progress/Results/Core Measures Suspected Sepsis SIRS Temperature: Pulse: Respiratory Rate: Blood Pressure / Mean: Results/Orders My Orders Orders - MANISHA SANTOS MD Ketorolac Injection (Toradol Injection) (09/29/19 23:45) Fentanyl Injection (Sublimaze Injection (09/29/19 23:45) Ed Iv/Invasive Line Start (09/29/19 23:44) Ct Cervical Spine Wo (09/30/19 00:01) Methylprednisolone Sod Succ (Solu-Medrol (09/30/19 01:15) Gabapentin Capsule/Tablet (Neurontin Cap (09/30/19 01:15) Hydrocodone/Apap 5/325 Tablet (Lortab 5 (09/30/19 01:15) Medications Given in ED Current Medications Medications Dose Ordered Sig/Jeffrey Route Start Time Stop Time Status Last Admin Dose Admin Fentanyl Citrate 75 mcg ONCE ONCE IVP 09/29/19 23:45 09/29/19 23:46 DC 09/30/19 00:07 75 MCG Ketorolac Tromethamine 15 mg ONCE ONCE IVP 09/29/19 23:45 09/29/19 23:46 DC 09/30/19 00:07 15 MG Vital Signs/I&O Capillary Refill : Progress Note : Progress Note Patient was seen and examined. Cervical radiculopathy was suspected. Patient is presently without health insurance and will have a difficult time obtaining an outpatient MRI. We therefore obtained a CT of the cervical spine in the ER. There was spondylosis noted and further evaluation with MRI was recommended. Patient's symptoms were first treated with Toradol and fentanyl. He was later treated with hydrocodone, Solu-Medrol, and gabapentin. Diagnostic Imaging Diagonstic Imaging: CT Plain Films/CT/US/NM/MRI: c-spine Comments CT scan reviewed by me and stat rad report reviewed. Cervical spondylosis of C5-C6 and C6-C7. Follow-up nonemergent MRI is suggested. No fractures identified. Questionable scoliosis of the lower cervical and upper thoracic spine. Departure Impression Primary Impression: Cervical radiculopathy Additional Impression: Cervical spondylosis Disposition: HOME, SELF-CARE Condition: Improved Departure-Patient Inst. Decision time for Depature: 01:16 Referrals: SMITA HERNANDEZ DO (PCP/Family) Primary Care Physician Patient Instructions: Radiculopathy Add. Discharge Instructions: Follow-up with Dr. HERNANDEZ as soon as possible. Complete financial investment adviser application with the hospital to belt facilitate future studies such as MRI if necessary. Discuss obtaining an MRI with Dr. Root at your follow-up appointment. For primary pain control take ibuprofen up to 600 mg every 6 hours as needed. Add gabapentin and/or hydrocodone as prescribed for additional pain relief. Please be advised that both these medications can cause drowsiness and should not be used if driving or operating machinery. Complete the course of steroids (prednisone) as prescribed. Return to emergency room if you have worsening symptoms. Scripts Gabapentin (Gabapentin) 300 Mg Capsule 300 MG PO BID PRN for PAIN-MODERATE (5-7), #14 CAP Prov: MANISHA SANTOS MD 09/30/19 Hydrocodone Bit/Acetaminophen (Hydrocodone/Acetaminophen 5/325mg Tablet) 1 Tab Tab 1-2 EACH PO Q6H PRN for PAIN-MODERATE MDD 10, #20 TAB 0 Refills Prov: MANISHA SANTOS MD 09/30/19 Prednisone (Prednisone) 20 Mg Tab 40 MG PO DAILY, #8 TAB 0 Refills Prov: MANISHA SANTOS MD 09/30/19 Copy Copies To 1: SMITA HERNANDEZ JOSHUA T MD Sep 30, 2019 00:17
[2019-09-30] MEDS ORDERED: GABAPENTIN 300 MG (NEURONTIN) CAP PO ONE (01:15)
[2019-09-30] MEDS ORDERED: HYDROcodone/APAP 5 MG/325 MG (LORTAB) TAB PO ONE (01:15)
[2019-09-30] MEDS ORDERED: methylPREDNISolone 125 MG (Solu-MEDROL) VIAL IVP ONE (01:15)
[2019-09-30] MEDS ORDERED: GABA-488 PO (01:19)
[2019-09-30] MEDS ORDERED: ACHD5005 PO (01:19)
[2019-09-30] MEDS ORDERED: PRD20T PO (01:19)
[2019-09-30 01:30] VITALS: BP 149/94
--- NOTE | 2019-09-30 08:10 | Diagnostic Imaging Report ---
PROCEDURE: CT cervical spine without contrast. TECHNIQUE: Multiple contiguous axial images were obtained through the cervical spine without the use of intravenous contrast. Sagittal and coronal reformations were then performed. Auto Exposure Controls were utilized during the CT exam to meet ALARA standards for radiation dose reduction. INDICATION: Soreness of the neck and numbness down left arm for one week after working on a car. FINDINGS: Soft tissues of the neck appear normal. Lung apices are clear. There is no fracture or subluxation. The C5-C6 level demonstrates mild disc space narrowing and disc bulge. Minimal uncovertebral joint hypertrophy is present on the right side with some mild narrowing of the right neural foramina. C6/C7 level demonstrates disc space narrowing with mild disc bulge at C6/C7. IMPRESSION: There is spondylosis at C5-C6 and C6/C7. MRI could be helpful for further evaluation if needed. Dictated by: Dictated on workstation # [id number]
== END 2019-09-30 01:37 | disposition home or self-care (01) ==
LOC: ER 22:46 → EDUNIT# 22:46 → ER 09-30 01:37
DX: M48.32 Traumatic spondylopathy, cervical region (principal); M54.12 Radiculopathy, cervical region; Z77.22 Contact with and (suspected) exposure to environmental tobacco smoke (acute) (chronic); Z79.52 Long term (current) use of systemic steroids; X50.1XXA Overexertion from prolonged static or awkward postures, initial encounter; Y99.0 Civilian activity done for income or pay
CPT/HCPCS: 72125; 96374; 96375

== ENCOUNTER 2019-12-22 01:06 | Emergency (ER) | payer SELFPAY ==
[~2019-12-22] VITALS: Ht 185 cm; Wt 105.4 kg
[~2019-12-22 01:06] MED LIST changes: +ACHD5005 PO; +GABA-488 PO
--- OUTSIDE RECORDS SUMMARY | 2019-12-22 01:17 | XMS REPORT ---
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 causes symptoms of concussion to worsen such as confusion, headache, blurry vision, nausea, irritability, etc., then stop that activity and rest. Avoid any activity that would predispose you to further head injury such as contact sports, heights, bike riding, etc. until at least 7 days after concussion symptoms resolve. Return to the ER if you have worsening symptoms. Follow-up with your primary care provider within the next week. The lump in your neck is near your thyroid gland. Please follow-up with Dr. Hernandez to request a thyroid ultrasound. This issue should be monitored longitudinally by your primary care provider. All discharge instructions reviewed with patient and/or family. Voiced understanding. Activity Details Follow Up 4 Weeks with Zack dejesus and US Reason: Discharge Date 07/06/18 8:38pm Disposition 01 HOME, SELF-CARE Condition at Discharge Improved Instructions/Education Provided Sinu sitis in Adults Sore Throat, Adult (DC) Prescriptions See Medication Section Referrals SMITA HERNANDEZ DO Order Date: Primary Care Physician Address: [address] [place] [id number] [phone] Additional Instructions/Education Dr ramos plenty of fluids. You may take Tylenol/acetaminophen 1000 mg every 8 hours as needed for pain. You may take ibuprofen 800 mg every 8 hours as needed for pain. Do not exceed these doses. Follow-up with your DrFrancisco in a few days for recheck. Return for worse pain, fever, vomiting, weakness, breathing problems or other concerns as needed. Discharge Date 04/06/19 12:08am Disposition 01 HOME, SELF-CARE Condition at Discharge Stable Instructions/Education Provided Diph theria and Tetanus Toxoids, and Acellular Pertussis Vaccine Laceration Repair With Stitches (DC) Prescriptions See Medication Section Referrals SMITA HERNANDEZ DO Order Date: Primary Care Physician Address: [address] [place] [id number] [phone] Additional Instructions/Education LE AVE DRESS[employer] [address] FOR 24 HOURS, THEN CLEAN TWICE A DAY WITH SOAP AND WATER ON A Q-TIP, OTHERWISE KEEP CLEAN AND DRY KEEP SPLINT/FINGER GUARD IN PLACE FOR PROTECTION OF WOUND SUTURES OUT IN 10 DAYS--RETURN TO ER FOR REMOVAL--DO NOT REMOVE AT HOME TYLENOL AND MOTRIN NEEDED FOR PAIN All discharge instructions reviewed with patient and/or family. Voiced understanding. Discharge Date 04/06/19 12:08am Disposition 01 HOME, SELF-CARE Condition at Discharge Stable Instructions/Education Provided Diph theria and Tetanus Toxoids, and Acellular Pertussis Vaccine Laceration Repair With Stitches (DC) Prescriptions See Medication Section Referrals SMITA HERNANDEZ DO Order Date: Primary Care Physician Address: [address] [place] [phone] Additional Instructions/Education LE A[address] FOR 24 HOURS, THEN CLEAN TWICE A DAY WITH SOAP AND WATER ON A Q-TIP, OTHERWISE KEEP CLEAN AND DRY KEEP SPLINT/FINGER GUARD IN PLACE FOR PROTECTION OF WOUND SUTURES OUT IN 10 DAYS--RETURN TO ER FOR REMOVAL--DO NOT REMOVE AT HOME TYLENOL AND MOTRIN NEEDED FOR PAIN All discharge instructions reviewed with patient and/or family. Voiced understanding. Goals No Information Social History The data below is from unstructured sources History Response Recorde d Date/Time Alcohol Use Rarely Uses 04/06/13 6:37pm Recreational Drug Use Y POT/METH 04/06/13 6:37pm Functional Status The data below is from unstructured sourcesNo functional status results.No functional status results.No functional status results.No functional status information available.No functional status information available.No functional status results.No functional status results.No functi onal status results.No functional status results.No functional status informatio n available.No functional status information available.No functional status info rmation available.No functional status information available.No functional statu s information available.No functional status information available.No functional status information available.No functional status information available.No func tional status information available.No functional status information available. 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 - 03-10-2018 07-22-2016 (D-PAIN/BRIDGET) Pain/BRIDGET Encounter for dental LEIDY Tenorio (no [facility] - examination and phone) (no phone) 07-22-2016 cleaning without - abnormal findings 07-22-2016 07-26-2015 (D-PAIN/BRIDGET) Pain/BRIDGET Encounter for dental DINH Naik (no [facility] - examination and phone) DENTAL (no [place]) 07-26-2015 cleaning without - abnormal findings 07-26-2015 09-29-2019 Emergency department no information no name (no [place]) no organization name - patient visit (no phone) 09-29-2019 05-02-2019 Emergency department no information no name (no [place]) no organization name patient visit (no phone) 05-02-2019 Emergency department no information no name (no [place]) no organization name - patient visit (no phone) 05-02-2019 04-05-2019 Emergency department no information DEANN STEELE Wor k no organization name - patient visit (no phone ) 04-06-2019 04-05-2019 Emergency department no information no name (no [place]) no organization name - patient visit (no phone) 04-05-2019 07-06-2018 Emergency department no information MARY Aguila MARLENE INS no organization name - patient visit Work Phone: (no phone) 07-06-2018 07-06-2018 Emergency department no information no name (no [place]) no organization name - patient visit (no phone) 07-06-2018 03-04-2018 Emergency department no information MANISHA TAVERAS no organization name - patient visit Work Phone: (no phone) 03-04-2018 03-04-2018 Emergency department no information no name (no [place]) no organization name - patient visit (no phone) 03-04-2018 01-15-2018 Emergency department no information WALLY Robert ork no organization name - patient visit (no phone ) 01-15-2018 01-15-2018 Emergency department no information no name (no [place]) no organization name - patient visit (no phone) 01-15-2018 02-16-2017 Emergency department no information no name (no [place]) no organization name - patient visit (no phone) 02-16-2017 02-28-2016 Emergency department no information no name (no [place]) no organization name - patient visit (no phone) 02-28-2016 07-17-2015 Emergency department no information no name (no [place]) no organization name - patient visit (no phone) 07-17-2015 03-11-2015 Emergency department no information no name (no [place]) no organization name - patient visit (no phone) 03-11-2015 03-26-2016 Nursing evaluation of no information [facility]no phone[facility] (no phone) 03-26-2016 - 03-26-2016 07-06-2018 Patient encounter no information no name (no phone) no organization name (no phone) 03-13-2018 Patient encounter no information no name (no phone) no organization name (no phone) 03-10-2018 Patient encounter no information no name (no phone) no organization name (no phone) 03-04-2018 Patient encounter no information no name (no phone) no organization name (no phone) 01-15-2018 Patient encounter no information no name (no phone) no organization name (no phone) 09-29-2019 Patient encounter no information no name (no phone) no organization name procedure (no phone) 05-02-2019 Patient encounter no information no name (no phone) no organization name procedure (no phone) 03-13-2018 Patient encounter no information no name (no phone) no organization name procedure (no phone) Patient encounter no information no name (no phone) no organ ization name procedure (no phone) 03-13-2018 Telephone encounter no information VALERIY DIXON (no phone) [facility] - (no phone) 03-13-2018 - 03-13-2018 no information Encounter for dental no name (no phone) no or ganization name examination and (no phone) cleaning without abnormal findings Medical Equipment No Information Payers The data below is from unstructured sources Payer Name Policy Number Subscriber Name Relationship Self Pay Sara Castellanos 01 Self / Same As Patient Summary Purpose eClinicalWorks Submission Advance Directives Directive Response Recor ded Date/Time Advance Directives No 9:46am Organ Donor No 02/28/16 9:46am Resuscitation Status Full Code 02/28/16 9:46am Directive Response Recor ded Date/Time Advance Directives No 7:54pm Organ Donor No 07/17/15 7:54pm Resuscitation Status Full Code 07/17/15 7:54pm Directive Response Recor ded Date/Time Advance Directives No 10:30pm Organ Donor No 02/16/17 10:30pm Resuscitation Status Full Code 02/16/17 10:30pm Directive Response Recor ded Date/Time Advance Directives No 8:10pm Organ Donor No 03/11/15 8:10pm Resuscitation Status Full Code 03/11/15 8:10pm Directive Response Recor ded Date Advance Directives N 6:37pm Organ Donor N 04/06/13 6 :37pm Directive Response Recor ded Date/Time Advance Directives No 3:07pm Organ Donor No 01/15/18 3:07pm Resuscitation Status Full Code 01/15/18 3:07pm Directive Response Recor ded Date/Time Advance Directives No 5:56pm Organ Donor No 03/04/18 5:56pm Resuscitation Status Full Code 03/04/18 5:56pm Directive Response Recor ded Date/Time Advance Directives No 7:18pm Organ Donor No 07/06/18 7:18pm Resuscitation Status Full Code 07/06/18 7:18pm Directive Response Recor ded Date/Time Advance Directives No 11:06pm Organ Donor No 04/05/19 11:06pm Resuscitation Status Full Code 04/05/19 11:06pm Discharge Instructions No hospital discharge instructions.No hospital discharge instructions.No hospital discharge instruction information available.No hospital discharge instructions.No hospital discharge instructions.No hospital discharge instruction information available.No hospital discharge instruction information available.No hospital discharge instruction information available.No hospital discharge instruction information available.No hospital discharge instruction information available. Chief Complaint and Reason for Visit Chief Complaint General Problems/Gary n Reason for Visit Acute sinusitis Pharyngitis Chief Complaint Laceration Reason for Visit Diphtheria-pertussi s-tetanus (DPT) vaccination administeredat current visit Laceration of right middle finger Additional Source Comments This clinical document has been generated using [employer] software that has been certified by the Office of the National Coordinator for Health Information Technology (ONC 15.99.04.3023.Diam.[id number]) and the National Committee for [employer] (NCQA, as an eMeasure certified technology). FOR RECORDS PERTAINING TO PATIENTS WHO ARE OR HAVE BEEN ENROLLED IN A CHEMICAL D EPENDENCY/SUBSTANCE ABUSE PROGRAM, SOME INFORMATION MAY BE OMITTED. This clinica l summary was aggregated from multiple sources. Caution should be exercised in using it in the provision of clinical care. This summary normalizes information from multiple sources, and as a consequence, information in this document may ma terially change the coding, format and clinical context of patient data. In poly tion, data may be omitted in some cases. CLINICAL DECISIONS SHOULD BE BASED ON T HE PRIMARY CLINICAL RECORDS. [employer] provides no warranty or guara ntee of the accuracy or completeness of information in this document.The followi ng information is based on time limited clinical information UNRECOGNIZED CONTENT PROVIDED BELOW FOR UNRECOGNIZED SECTION REASON FOR VISIT Returned calllump in right side of neck x 3 weeks, patient states that it is dif ficult to swallow at times and it is often painful as well-awoods
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
--- NOTE | 2019-12-22 01:45 | NUR ---
PT REFUSES TO REMAIN STILL AND CALM DURING IV INSERTION, THE NEED FOR THE PROCEDURE WAS EXPLAINED. PT REFUSES IV. PT STATES HE WANTS TO GO HOME AND SELF ISOLATE, EXPLAINED TO PT POSSIBLE CONSEQUENCES OF THIS DECISION. PT STATES HE UNDERSTANDS AND AMA FORM IS SENT OVER BY REGISTRAION STAFF
[2019-12-22 02:00] VITALS: BP 148/83
[2019-12-23] MEDS ORDERED: ONDA4TAB11 SL (08:36)
== END 2019-12-22 02:00 | disposition left against medical advice (07) ==
LOC: EDUNIT# 01:06 → ER 01:10
DX: R50.9 Fever, unspecified (principal); R06.02 Shortness of breath; R11.2 Nausea with vomiting, unspecified; R05 Cough; R53.81 Other malaise; R10.9 Unspecified abdominal pain
CPT/HCPCS: 99282

== ENCOUNTER 2019-12-23 04:09 | Emergency (ER) | payer SELFPAY ==
[~2019-12-23] VITALS: Ht 176.7 cm; Wt 99.7 kg
[2019-12-23] MEDS ORDERED: LACTATED RINGERS 1,000 ML IV ONE ×2 (04:21→04:28)
--- OUTSIDE RECORDS SUMMARY | 2019-12-23 04:21 | XMS REPORT ---
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 03-04-2018 01-15-2018 Emergency department no information WALLY sanders no organization name - patient visit (no [...] of no information FLIP THOMPSON (no phone) [facility] - patient and report CARE [...] encounter no information VALERIY DIXON (no phone) [facility] - (no phone) 03-13-2018 - 03-13-2018 no [...] This clinical document has been generated using [employer] software that has been certified by the Office of the National Coordinator for Health Information Technology (ONC 15.99.04.3023.Diam.[id number]) and the National Committee for Automatic Embroidery Machine Tender (NCQA, as an eMeasure certified technology). FOR [...] BASED ON T HE PRIMARY CLINICAL RECORDS. [employer]. provides no warranty or guara ntee of [...]
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
--- NOTE | 2019-12-23 04:27 | ED Abdominal Pain ---
General Chief Complaint: Abdominal/GI Problems Stated Complaint: VOMITING Source of Information: Patient, EMS Exam Limitations: No Limitations (KATI LINARES) History of Present Illness Date Seen by Provider: Dec 23, 2019 Time Seen by Provider: 04:06 Initial Comments Patient presents to ER via EMS from home with chief complaint of a week to aggressively worsening symptoms of nausea vomiting and right upper quadrant abdominal pain. Last oral intake was last night he had some Ramen noodles and within about 1-2 hours he started having worsening pain and vomiting. If it is not no relief. He is not keeping anything for pain medicine down. He has not seen a primary care doctor. He does not follow with a doctor. He says he presented last night to the ER but had to leave AMA because he did not tolerate having the nasal swab for IV. He is not having cough, shortness of breath, sore throat, nasal congestion or runny nose. He has subjective fever and chills but does not own a thermometer. He does not have any known allergies. He notes about half pack cigarettes a day usually. Last known methamphetamine this week. He does not have a history of pancreatitis. He occasionally drinks White Russians with his last drink being about a week ago. He was not having any abdominal pain that time and denies that this made his abdominal pain worse. He denies known history of diabetes or hyperlipidemia. He denies any dysuria or hematuria. (KATI LINARES) Allergies and Home Medications Allergies Coded Allergies: No Known Drug Allergies (Unverified , 02/27/09) Home Medications Amoxicillin 500 Mg Capsule, 1,000 MG PO TID Prescribed by: MARY POP on 07/06/182017 Famotidine 20 Mg Tablet, 20 MG PO BID PRN Prescribed by: HARI CRUZ MD on 05/02/19 173 Gabapentin 300 Mg Capsule, 300 MG PO BID PRN for PAIN-MODERATE (5-7) Prescribed by: MANISHA TOTH on 09/30/19118 Hydrocodone Bit/Acetaminophen 1 Tab Tab, 1-2 EACH PO Q6H PRN for PAIN-MODERATE Prescribed by: MANISHA TTOH on 09/30/19118 Ondansetron 4 Mg Tab.rapdis, 4 MG SL Q4H PRN for NAUSEA/VOMITING Prescribed by: MANISHA TOTH on 12/23/19 0836 Prednisone 20 Mg Tab, 40 MG PO DAILY Prescribed by: HARI CRUZ MD on 05/02/19 1735 Prednisone 20 Mg Tab, 40 MG PO DAILY Prescribed by: MANISHA TOTH on 09/30/19 0119 Sulfamethoxazole/Trimethoprim 1 Each Tablet, 1 EACH PO BID Prescribed by: MARCO A MCCOLLUM on 02/16/17 2240 Sulfamethoxazole/Trimethoprim 1 Each Tablet, 1 EACH PO BID Prescribed by: DEANN STEELE on 04/06/19 0002 Triamcinolone Acet 15 Gm Cr, 80 GM TP TID PRN for RASH Prescribed by: HARI CRUZ MD on 05/02/19 1735 Patient Home Medication List Home Medication List Reviewed: Yes (KATI LINARES) Review of Systems Review of Systems Constitutional: chills; No diaphoresis; fever, malaise EENTM: No Blurred Vision, No Double Vision, No Eye Pain Respiratory: Denies Cough, Denies Shortness of Air Cardiovascular: Denies Chest Pain, Denies Edema Gastrointestinal: See HPI; Denies Abdomen Distended; Abdominal Pain; Denies Constipated, Denies Diarrhea; Nausea, Poor Fluid Intake, Vomiting Genitourinary: Denies Burning, Denies Discharge Musculoskeletal: No back pain, No joint pain Skin: No pruritus, No rash Psychiatric/Neurological: Denies Anxiety, Denies Depressed, Denies Headache (KATI LINARES) All Other Systems Reviewed Negative Unless Noted: Yes (KATI LINARES) Past Gyowftn-Vwkrtv-Gauyhm Hx Patient Social History Alcohol Beverage of Choice: Beer, Rum, Vodka Recreational Drug Use: Yes Drug of Choice: HX OF THC AND METH USE--DENIES IV USE Smoking Status: Current Everyday Smoker Type Used: Cigarettes 2nd Hand Smoke Exposure: Yes Recent Hopitalizations: No (KATI LINARES) Immunizations Up To Date Tetanus Booster (TDap): Unknown (KATI LINARES) Seasonal Allergies Seasonal Allergies: No (KATI LINARES) Past Medical History Surgeries: Yes Ear Surgery Respiratory: No Cardiac: No Neurological: No Reproductive Disorders: No Genitourinary: No Gastrointestinal: No Musculoskeletal: Yes (chronic left ankle pain 5 years) Arthritis Endocrine: Yes (history of thyroid nodule) HEENT: No Cancer: No Psychosocial: No Integumentary: No Blood Disorders: No (KATI LINARES) Family Medical History Cancer (KATI LINARES) Physical Exam Vital Signs Vital Signs - First Documented 12/23/19 04:25 Temp 36.8 Pulse 101 Resp 20 B/P (MAP) 149/84 (105) Pulse Ox 97 O2 Delivery Room Air (MANISHA SANTOS MD) Vital Signs Capillary Refill : (KATI LINARES) Height/Weight/BMI Height: 5'8.00" Weight: 220lbs. oz. 99.651921ob; 30.00 BMI Method:Stated General Appearance: moderate distress, obese HEENT: PERRL/EOMI, normal ENT inspection, pharynx normal Neck: full range of motion, supple Respiratory: lungs clear, normal breath sounds, no respiratory distress, no accessory muscle use Cardiovascular: normal peripheral pulses, regular rate, rhythm, tachycardia (105-115) Peripheral Pulses: 2+ Radial Pulses (R), 2+ Radial Pulses (L) Gastrointestinal: normal bowel sounds (quiescent), no organomegaly, guarding; No rebound; tenderness (Right upper quadrant tenderness with Porter sign positive. Mild tenderness over the epigastric region), other (Negative for psoas sign, Rovsing sign or McBurney's point tenderness) Extremities: normal range of motion, normal inspection, no pedal edema, normal capillary refill Neurologic/Psychiatric: alert, normal mood/affect, oriented x 3 Skin: normal color, warm/dry (KATI LINARES) Focused Exam Lactate Level 12/23/19 04:25: Lactic Acid Level 1.81 (MANISHA SANTOS MD) Lactic Acid Level Laboratory Tests Test 12/23/19 04:25 Lactic Acid Level 1.81 MMOL/L (0.50-2.00) (MANISHA SANTOS MD) Progress/Results/Core Measures Results/Orders Lab Results Laboratory Tests Test 12/23/19 04:25 12/23/19 05:55 Range/Units White Blood Count 16.4 H 4.3-11.0 10^3/uL Red Blood Count 6.30 H 4.35-5.85 10^6/uL Hemoglobin 18.8 H 13.3-17.7 G/DL Hematocrit 53 40-54 % Mean Corpuscular Volume 84 80-99 FL Mean Corpuscular Hemoglobin 30 25-34 PG Mean Corpuscular Hemoglobin Concent 36 32-36 G/DL Red Cell Distribution Width 13.9 10.0-14.5 % Platelet Count 291 130-400 10^3/uL Mean Platelet Volume 10.1 7.4-10.4 FL Neutrophils (%) (Auto) 83 H 42-75 % Lymphocytes (%) (Auto) 9 L 12-44 % Monocytes (%) (Auto) 7 0-12 % Eosinophils (%) (Auto) 2 0-10 % Basophils (%) (Auto) 0 0-10 % Neutrophils # (Auto) 13.6 H 1.8-7.8 X 10^3 Lymphocytes # (Auto) 1.4 1.0-4.0 X 10^3 Monocytes # (Auto) 1.1 H 0.0-1.0 X 10^3 Eosinophils # (Auto) 0.3 0.0-0.3 10^3/uL Basophils # (Auto) 0.0 0.0-0.1 10^3/uL Neutrophils % (Manual) 76 % Lymphocytes % (Manual) 7 % Monocytes % (Manual) 9 % Eosinophils % (Manual) 3 % Basophils % (Manual) 0 % Band Neutrophils 2 % Reactive Lymphocytes 3 % Blood Morphology Comment NORMAL Prothrombin Time 14.3 12.2-14.7 SEC INR Comment 1.1 0.8-1.4 Activated Partial Thromboplast Time 33 24-35 SEC Sodium Level 143 135-145 MMOL/L Potassium Level 3.6 3.6-5.0 MMOL/L Chloride Level 95 L 98-107 MMOL/L Carbon Dioxide Level 27 21-32 MMOL/L Anion Gap 21 H 5-14 MMOL/L Blood Urea Nitrogen 19 H 7-18 MG/DL Creatinine 1.08 0.60-1.30 MG/DL Estimat Glomerular Filtration Rate > 60 BUN/Creatinine Ratio 18 Glucose Level 150 H 70-105 MG/DL Lactic Acid Level 1.81 0.50-2.00 MMOL/L Calcium Level 10.1 8.5-10.1 MG/DL Corrected Calcium 8.5-10.1 MG/DL Total Bilirubin 0.8 0.1-1.0 MG/DL Aspartate Amino Transf (AST/SGOT) 27 5-34 U/L Alanine Aminotransferase (ALT/SGPT) 48 0-55 U/L Alkaline Phosphatase 65 40-136 U/L C-Reactive Protein High Sensitivity 0.49 0.00-0.50 MG/DL Total Protein 8.7 H 6.4-8.2 GM/DL Albumin 5.3 H 3.2-4.5 GM/DL Lipase 32 8-78 U/L Urine Color YELLOW Urine Clarity CLEAR Urine pH 8.5 5-9 Urine Specific [place] 1.015 L 1.016-1.022 Urine Protein 2+ H NEGATIVE Urine Glucose (UA) NEGATIVE NEGATIVE Urine Ketones 1+ H NEGATIVE Urine Nitrite NEGATIVE NEGATIVE Urine Bilirubin NEGATIVE NEGATIVE Urine Urobilinogen 1.0 < = 1.0 MG/DL Urine Leukocyte Esterase NEGATIVE NEGATIVE Urine RBC (Auto) NEGATIVE NEGATIVE Urine RBC NONE /HPF Urine WBC NONE /HPF Urine Squamous Epithelial Cells RARE /HPF Urine Crystals NONE /LPF Urine Bacteria TRACE /HPF Urine Casts NONE /LPF Urine Mucus SMALL H /LPF Urine Culture Indicated CULTURE PENDING (MANISHA SANTOS MD) My Orders Orders - MANISHA SANTOS MD Hs C Reactive Protein (12/23/19 06:29) Fentanyl Injection (Sublimaze Injection (12/23/19 07:00) Us Gallbladder 77051 (12/23/19 06:48) Lidocaine 2% Viscous 15 Ml (Xylocaine Vi (12/23/19 08:00) Antacid Suspension (Mylanta Suspension (12/23/19 08:00) (MANISHA SANTOS MD) Medications Given in ED Current Medications Medications Dose Ordered Sig/Jeffrey Route Start Time Stop Time Status Last Admin Dose Admin Al Hydrox/Mg Hydrox/Simethicone 30 ml ONCE ONCE PO 12/23/19 08:00 12/23/19 08:01 DC 12/23/19 08:03 30 ML Ceftriaxone Sodium 1000 mg/ Sterile Water 10 ml @ 200 mls/hr ONCE ONCE IV 12/23/19 04:30 12/23/19 04:32 DC 12/23/19 04:54 200 MLS/HR Fentanyl Citrate 50 mcg ONCE ONCE IVP 12/23/19 07:00 12/23/19 07:01 DC 12/23/19 06:54 50 MCG Iohexol 100 ml ONCE ONCE IV 12/23/19 05:45 12/23/19 05:46 DC 12/23/19 05:44 100 ML Ketorolac Tromethamine 30 mg ONCE ONCE IVP 12/23/19 04:30 12/23/19 04:31 DC 12/23/19 04:54 30 MG Lactated Ringer's 1,000 ml @ 0 mls/hr Q0M ONCE IV 12/23/19 04:21 12/23/19 04:27 DC 12/23/19 04:53 0 MLS/HR Lactated Ringer's 1,000 ml @ 0 mls/hr Q0M ONCE IV 12/23/19 04:28 12/23/19 04:29 DC 12/23/19 05:09 0 MLS/HR Lidocaine HCl 15 ml ONCE ONCE PO 12/23/19 08:00 12/23/19 08:01 DC 12/23/19 08:03 15 ML Ondansetron HCl 8 mg PRN PRN IV 12/23/19 04:30 12/23/19 04:54 DC 12/23/19 04:54 8 MG Pantoprazole 40 mg ONCE ONCE IV 12/23/19 04:30 12/23/19 04:31 DC 12/23/19 05:08 40 MG Sodium Chloride 100 ml ONCE ONCE IV 12/23/19 05:45 12/23/19 05:46 DC 12/23/19 05:44 80 ML (MANISHA SANTOS MD) Vital Signs/I&O 12/23/19 04:25 Temp 36.8 Pulse 101 Resp 20 B/P (MAP) 149/84 (105) Pulse Ox 97 O2 Delivery Room Air (MANISHA SANTOS MD) Progress Progress Note #1: Time: 04:36 Progress Note Patient has no respiratory symptoms. He only has subjective fever in combination with tachycardia which merits a septic workup. His pain seems to be related to eating, drinking and the differential includes things like pancreatitis, choledocholithiasis, cholecystitis, PUD, gastritis, appendicitis, kidney stone. Because of his subjective fever will attempt to collect influenza swab however if he does not tolerate it then we will not push the issue. We'll start with Toradol and pantoprazole for his pain. 8 of Zofran IV for his nausea. 2 L of lactated Ringer's would be greater than 20 mL/kg based on an ideal body weight adjusted at 183 pounds. The patient was afebrile yesterday and today. No labs or workup were obtained before he decided to go AGAINST MEDICAL ADVICE yesterday. Predictably the patient declined to do a flu swab. Progress Note #2: Time: 04:56 Progress Note Patient vomited copious thin black secretions with what looked like possible clots so we obtained 2 Gastroccult blood tests that were both negative. Progress Note #3: Time: 06:16 Progress Note Patient's pain is much more comfortable. He is no longer having any nausea or vomiting after the initial dose of medications. We have elected to obtain a CT of the chest using the extant IV contrast to evaluate the widened mediastinum in accordance with radiology. We have passed off the case to Dr. Toth to await the results of urinalysis and CT of the chest. May be reasonable to do a ultrasound of the gallbladder or set him up for outpatient management through g eneral surgery. (KATI LINARES) Progress Note #1: Time: 06:51 Progress Note Care of this patient was assumed from Dr. Linares at shift change. Labs are reviewed and CT of the chest viewed by me and report reviewed. No significant pathology was found. Patient reexamined. He still has significant right upper quadrant tenderness and rates his pain as 7/10. Fentanyl has been ordered. He is still tachycardic but still receiving IV fluids. Given his presentation and lab values, gallbladder pathology should be ruled out. Ultrasound has been ordered. If gallbladder ultrasound is negative, we will try a GI cocktail for further treatment of pain. Progress Note #2: Time: 08:32 Progress Note Gallbladder ultrasound was unremarkable. Patient's pain improved with GI cocktail. CRP was negative making bacterial infection unlikely. Tachycardia is likely related to volume status and methamphetamine abuse. See discharge instructions. (MANISHA SANTOS MD) Diagnostic Imaging Diagonstic Imaging: Xray Plain Films/CT/US/NM/MRI: chest (1v ) Comments No acute cardiopulmonary process noted on one view chest x-ray. Widened mediastinum versus malrotation? NAME: SARA CASTELLANOS MED REC#: [id number] PT STATUS: REG ER : 1995 PHYSICIAN: KATI LINARES MD ADMIT DATE: 12/23/19/ER Draft Date of Exam:12/23/19 CHEST 1 VIEW, AP/PA ONLY CHEST 1 VIEW, AP/PA ONLY INDICATION: Fever and cough. COMPARISON: 02/27/2009 FINDINGS: Mild widening of the mediastinal silhouette along the superior margin has developed. This could be due to patient rotation. No pulmonary consolidation in the visualized lungs. Posterior lower lobes are poorly evaluated by portable radiography. Normal heart size. No pleural effusion or pneumothorax. IMPRESSION: 1. Abnormal widening of the upper mediastinum could be due to patient rotation. However, perihilar mass and/or lymphadenopathy could give this appearance. Recommend CT chest with IV contrast for further characterization. Dictated on workstation # [id number] Dict: 12/23/19528 Trans: [birth year]/1946 [id number] Interpreted by: NITHYA SHAW MD Electronically signed by: Reviewed: Reviewed by Me Diagonstic Imaging: CT (with IV contrast) Plain Films/CT/US/NM/MRI: abdomen, pelvis Comments No definite acute inflammatory obstructive process and then notified within the abdomen or pelvis. Mild concentric wall thickening of the distal esophagus likely associated with the recent vomiting. Small hiatal hernia. Reviewed: Reviewed [place] Study, Reviewed by Me Diagonstic Imaging: CT Plain Films/CT/US/NM/MRI: chest Reviewed: Reviewed [place] Study, Reviewed by Me (KATI LINARES) Comments CT chest viewed by me and report reviewed. See report below: NAME: SARA CASTELLANOS [facility] REC#: [id number] PT STATUS: REG ER : 1995 PHYSICIAN: KATI LINARES MD ADMIT DATE: 12/23/19/ER Draft Date of Exam:12/23/19 CT CHEST WO TECHNIQUE: Multiple contiguous axial images were obtained through the chest without the use of intravenous contrast. All CT scans use one or more of the following dose optimizing techniques: automated exposure control, MA and/or KvP adjustment based on a patient size and exam type, or iterative reconstruction. INDICATION: Cough and congestion. COMPARISON: Chest radiograph performed earlier same day. FINDINGS: Lungs and airway: There is a trace amount of retained secretions within the trachea. No pulmonary mass, nodule or consolidation. Specifically, there is no right perihilar mass. Pleura: No pleural effusion or pneumothorax. Heart and mediastinum: Thyroid is normal in appearance. No supraclavicular or axillary lymphadenopathy. No mediastinal, hilar or juxtaphrenic lymphadenopathy. Heart is normal in size without pericardial effusion. Normal caliber thoracic aorta. Circumferential wall thickening of the esophagus is likely reactive in nature due to esophagitis. Upper abdomen: Please see CT abdomen and pelvis report for details of the upper abdomen. Musculoskeletal: Dextroscoliosis of the thoracic spine is present. No worrisome focal osseous lesions. IMPRESSION: 1. No pulmonary consolidations or mass. Specifically, there is no abnormality in the right perihilar region. The abnormal opacity seen on chest radiograph are due to portable technique and patient rotation. Dictated on workstation # [id number] Dict: 12/23/19623 Trans: 12/23/19629 SA [id number] Interpreted by: NITHYA SHAW MD Diagonstic Imaging: Ultrasound Plain Films/CT/US/NM/MRI: abdomen Comments Gallbladder ultrasound discussed with the telecommunications switch technician and report reviewed. See report below: NAME: SARA CASTELLANOS MED REC#: [id number] PT STATUS: REG ER : 1995 PHYSICIAN: MANISHA SANTOS MD ADMIT DATE: 12/23/19/ER Signed Date of Exam:12/23/19 US GALLBLADDER [id number] PROCEDURE: US Gallbladder. TECHNIQUE: Multiple real-time grayscale images were obtained over the right upper quadrant in various projections. INDICATION: Right upper quadrant abdominal pain with nausea and emesis FINDINGS: Grayscale imaging of the gallbladder reveals no intraluminal filling defect. There is no gallbladder wall thickening or pericholecystic fluid. No intra or extrahepatic biliary ductal dilatation is identified. The pancreas and retroperitoneal structures are largely obscured by overlying bowel. No right renal abnormality or free fluid is documented. IMPRESSION: Unremarkable gallbladder ultrasound. Dictated by: Dictated on workstation # [id number] Dict: 12/23/19 0806 Trans: 12/23/19 0808 [id number] Interpreted by: CARYL DENNY MD Electronically signed by: CARYL DENNY MD 12/23/19 0808 (MANISHA SANTOS MD) Transfer of Care Time: 06:18 Care transferred to: Dr. Toth (KATI LINARES) Departure Impression Primary Impression: Right upper quadrant pain Additional Impressions: Nausea and vomiting Qualified Codes: R11.2 - Nausea with vomiting, unspecified Tachycardia Disposition: 01 HOME, SELF-CARE Condition: Improved Departure-Patient Inst. Decision time for Depature: 08:33 (MANISHA SANTOS MD) Referrals: SMITA HERNANDEZ DO (PCP/Family) Primary Care Physician Patient Instructions: Acute Abdomen (Belly Pain), Adult (DC) Add. Discharge Instructions: Drink plenty of noncarbonated clear liquids. Start with a clear liquid diet and gradually advance your diet with small quantities of bland food as tolerated. Use an antacid medication for at least the next 2 weeks. Options include Pepcid (famotidine) 20 mg twice daily, omeprazole 20 mg twice daily, etc. These may be purchased [id number]. You may use Zofran as prescribed for nausea and vomiting. Avoid the following: Eating large meals, eating close to bedtime, caffeine, carbonation, citrus fruits and juices, tomato products, chocolate, mints, fatty or greasy foods, spicy foods, acidic foods and beverages, NSAID medications such as ibuprofen or naproxen, alcohol, tobacco, and anything else you know irritates your stomach. Follow-up with your primary care provider as soon as possible. Return to the emergency room if you have worsening or new symptoms. All discharge instructions reviewed with patient and/or family. Voiced understanding. Scripts Ondansetron (Ondansetron Odt) 4 Mg Tab.rapdis 4 MG SL Q4H PRN for NAUSEA/VOMITING, #10 TAB Prov: MANISHA SANTOS MD 12/23/19 KATI LINARES Dec 23, 2019 04:27 MANISHA SANTOS MD Dec 23, 2019 06:43
[2019-12-23] MEDS ORDERED: ONDANSETRON 4 MG/2 ML (SDV) Z0FRAN IV PRN (04:30)
[2019-12-23] MEDS ORDERED: KETOROLAC 30 MG/ML VIAL IVP ONE (04:30)
[2019-12-23] MEDS ORDERED: PANTOPRAZOLE 40 MG (PROTONIX) VIAL IV ONE (04:30)
[2019-12-23] MEDS ORDERED: cefTRIAXone FOR IV USE 1,000 MG in WATER (STERILE) FOR INJECTION 10 ML IV ONE (04:30)
--- NOTE | 2019-12-23 04:35 | NUR ---
patient refused Flu swab.
--- NOTE | 2019-12-23 04:38 | NUR ---
per dr jett orders patient moved to main ED.
[2019-12-23 04:40] LABS: BASOPHILS % (AUTO) 0 % (0-10); EOSINOPHILS # (AUTO) 0.3 10^3/uL (0.0-0.3); EOSINOPHILS % (AUTO) 2 % (0-10); HEMATOCRIT 53 % (40-54); HEMOGLOBIN 18.8 G/DL (13.3-17.7); LYMPHOCYTES # (AUTO) 1.4 X 10^3 (1.0-4.0); LYMPHOCYTES % (AUTO) 9 % (12-44); MEAN CORPUSCULAR HEMOGLOBIN 30 PG (25-34); MEAN CORPUSCULAR HGB CONC 36 G/DL (32-36); MEAN CORPUSCULAR VOLUME 84 FL (80-99); MEAN PLATELET VOLUME 10.1 FL (7.4-10.4); MONOCYTES # (AUTO) 1.1 X 10^3 (0.0-1.0); MONOCYTES % (AUTO) 7 % (0-12); NEUTROPHILS # (AUTO) 13.6 X 10^3 (1.8-7.8); NEUTROPHILS % (AUTO) 83 % (42-75); PLATELET COUNT 291 10^3/uL (130-400); RED CELL DISTRIBUTION WIDTH 13.9 % (10.0-14.5); WHITE BLOOD COUNT 16.4 10^3/uL (4.3-11.0)
--- NOTE | 2019-12-23 04:40 | NUR ---
gastric occult blood negative
[2019-12-23 04:51] LABS: INR 1.1 (0.8-1.4); PROTHROMBIN TIME PATIENT 14.3 SEC (12.2-14.7)
[2019-12-23 04:55] LABS: BAND NEUTROPHILS 2 %; BASOPHILS % (MANUAL) 0 %; EOSINOPHILS % (MANUAL) 3 %; LYMPHOCYTES % (MANUAL) 7 %; MONOCYTES % (MANUAL) 9 %; NEUTROPHILS % (MANUAL) 76 %; RBC MORPH NORMAL; REACTIVE LYMPHOCYTES 3 %
[2019-12-23 05:01] LABS: ALANINE AMINOTRANSFERASE 48 U/L (0-55); ALBUMIN 5.3 GM/DL (3.2-4.5); ALKALINE PHOSPHATASE 65 U/L (40-136); BILIRUBIN,TOTAL 0.8 MG/DL (0.1-1.0); BUN/CREATININE RATIO 18; CALCIUM 10.1 MG/DL (8.5-10.1); CARBON DIOXIDE 27 MMOL/L (21-32); CHLORIDE 95 MMOL/L (98-107); CREATININE SERUM 1.08 MG/DL (0.60-1.30); GFR ESTIMATED > 60; GLUCOSE 150 MG/DL (70-105); LIPASE 32 U/L (8-78); POTASSIUM 3.6 MMOL/L (3.6-5.0); SODIUM 143 MMOL/L (135-145); TOTAL PROTEIN 8.7 GM/DL (6.4-8.2)
[2019-12-23] MEDS ORDERED: HOLD METFORMIN - RECEIVED CONTRAST 20 ML VIAL IV SCH (05:45)
[2019-12-23] MEDS ORDERED: IOHEXOL 350 MG/ML 100 ML (OMNIPAQUE 350) VIAL IV ONE (05:45)
[2019-12-23] MEDS ORDERED: NS 100 ML (IVPB) BAG IV ONE (05:45)
--- NOTE | 2019-12-23 05:47 | Diagnostic Imaging Report ---
CHEST 1 VIEW, AP/PA ONLY INDICATION: Fever and cough. COMPARISON: 02/27/2009 FINDINGS: Mild widening of the mediastinal silhouette along the superior margin has developed. This could be due to patient rotation. No pulmonary consolidation in the visualized lungs. Posterior lower lobes are poorly evaluated by portable radiography. Normal heart size. No pleural effusion or pneumothorax. IMPRESSION: 1. Abnormal widening of the upper mediastinum could be due to patient rotation. However, perihilar mass and/or lymphadenopathy could give this appearance. Recommend CT chest with IV contrast for further characterization. Dictated by: Dictated on workstation # [id number]
[2019-12-23 06:03] LABS: BILIRUBIN,URINE NEGATIVE (NEGATIVE); CLARITY,URINE CLEAR; COLOR,URINE YELLOW; GLUCOSE, URINE (UA) NEGATIVE (NEGATIVE); KETONES,URINE 1+ (NEGATIVE); LEUKOCYTE ESTERASE ,URINE NEGATIVE (NEGATIVE); NITRITE,URINE NEGATIVE (NEGATIVE); PH,URINE 8.5 (5-9); PROTEIN,URINE 2+ (NEGATIVE)
[2019-12-23 06:18] LABS: BACTERIA,URINE TRACE /HPF; SQUAMOUS EPITHELIAL CELL,UR RARE /HPF
--- NOTE | 2019-12-23 06:26 | Diagnostic Imaging Report ---
CT ABDOMEN/PELVIS W TECHNIQUE: Multiple contiguous axial images were obtained through the abdomen and pelvis after administration of intravenous contrast. All CT scans use one or more of the following dose optimizing techniques: automated exposure control, MA and/or KvP adjustment based on a patient size and exam type, or iterative reconstruction. INDICATION: Fever, cough and congestion. COMPARISON: CT abdomen and pelvis from 04/06/2013 FINDINGS: Lower chest: The lung bases are clear. No pericardial or pleural effusion. Peritoneum: No free intraperitoneal air or fluid. Liver and biliary system: The liver is normal. The gallbladder is normal. No biliary duct dilation. Spleen and Pancreas: Spleen is normal. The pancreas enhances normally without mass lesion or peripancreatic inflammatory changes. Adrenals: Normal. tract: The kidneys enhance normally without suspicious mass or obstruction. Urinary bladder is distended without wall thickening. Prostate is normal in appearance. GI tract: Small sliding-type hiatal hernia. Cervical vertebral wall thickening of the distal esophagus is present. No bowel obstruction. No pericolonic inflammatory changes. Normal appendix. Vasculature and Lymph nodes: Normal caliber aorta. No abdominal or pelvic lymphadenopathy. Musculoskeletal: No concerning osseous lesion. IMPRESSION: 1. No acute obstructive or inflammatory process in the abdomen or pelvis. 2. Small hiatal hernia with wall thickening of distal esophagus is most suggestive of esophagitis, and is likely due to sequelae of vomiting. 3. Findings are in agreement with the preliminary report. Dictated by: Dictated on workstation # [id number]
--- NOTE | 2019-12-23 06:30 | Diagnostic Imaging Report ---
CT CHEST WO TECHNIQUE: Multiple contiguous axial images were obtained through the chest without the use of intravenous contrast. All CT scans use one or more of the following dose optimizing techniques: automated exposure control, MA and/or KvP adjustment based on a patient size and exam type, or iterative reconstruction. INDICATION: Cough and congestion. COMPARISON: Chest radiograph performed earlier same day. FINDINGS: Lungs and airway: There is a trace amount of retained secretions within the trachea. No pulmonary mass, nodule or consolidation. Specifically, there is no right perihilar mass. Pleura: No pleural effusion or pneumothorax. Heart and mediastinum: Thyroid is normal in appearance. No supraclavicular or axillary lymphadenopathy. No mediastinal, hilar or juxtaphrenic lymphadenopathy. Heart is normal in size without pericardial effusion. Normal caliber thoracic aorta. Circumferential wall thickening of the esophagus is likely reactive in nature due to esophagitis. Upper abdomen: Please see CT abdomen and pelvis report for details of the upper abdomen. Musculoskeletal: Dextroscoliosis of the thoracic spine is present. No worrisome focal osseous lesions. IMPRESSION: 1. No pulmonary consolidations or mass. Specifically, there is no abnormality in the right perihilar region. The abnormal opacity seen on chest radiograph are due to portable technique and patient rotation. Dictated by: Dictated on workstation # [id number]
[2019-12-23] MEDS ORDERED: fentaNYL INJECTION 100 MCG/2 ML AMP IVP ONE (07:00)
--- NOTE | 2019-12-23 07:31 | NUR ---
TO ROOM FLUIDS INFUSED. REPORTS PAIN BETTR.
[2019-12-23] MEDS ORDERED: LIDOCAINE 2% VISCOUS 15 ML UDC PO ONE (08:00)
[2019-12-23] MEDS ORDERED: ANTACID SUSP 30 ML UDC (MYLANTA) PO ONE (08:00)
--- NOTE | 2019-12-23 08:10 | Diagnostic Imaging Report ---
PROCEDURE: US Gallbladder. TECHNIQUE: Multiple real-time grayscale images were obtained over the right upper quadrant in various projections. INDICATION: Right upper quadrant abdominal pain with nausea and emesis FINDINGS: Grayscale imaging of the gallbladder reveals no intraluminal filling defect. There is no gallbladder wall thickening or pericholecystic fluid. No intra or extrahepatic biliary ductal dilatation is identified. The pancreas and retroperitoneal structures are largely obscured by overlying bowel. No right renal abnormality or free fluid is documented. IMPRESSION: Unremarkable gallbladder ultrasound. Dictated by: Dictated on workstation # [id number]
[2019-12-23] MEDS ORDERED: ONDA4TAB11 SL (08:36)
[2019-12-23 08:49] VITALS: BP 142/90
== END 2019-12-23 08:49 | disposition home or self-care (01) ==
LOC: EDUNIT# 04:09 → ER 04:13
DX: R11.2 Nausea with vomiting, unspecified (principal); R10.11 Right upper quadrant pain; R00.0 Tachycardia, unspecified; F17.210 Nicotine dependence, cigarettes, uncomplicated
CPT/HCPCS: 36415; 71045; 71250; 74177; 76705; 80053; 81000; 83605; 83690; 85007; 85027; 85610; 85730; 86141; 87040; 87088

== ENCOUNTER 2020-04-17 20:37 | Emergency (ER) | payer SELFPAY ==
[~2020-04-17] VITALS: Ht 177 cm; Wt 99.7 kg
[~2020-04-17 20:37] MED LIST changes: +ONDA4TAB11 SL
--- NOTE | 2020-04-17 20:56 | ED Back Pain ---
General Chief Complaint: Back Problems Stated Complaint: BACK PAIN Source of Information: Patient Exam Limitations: No Limitations History of Present Illness Date Seen by Provider: Apr 17, 2020 Time Seen by Provider: 20:53 Initial Comments Patient was laying on his left side beneath a car attaching a tow rope 3 days ago. The car was slightly elevated, only by a few inches but fell and struck him on the right side of his chest which was facing up. He has had persistent pain to the right lateral posterior chest wall since the fall. He is tachycardic at 120 upon arrival. Location: T-Spine Timing/Duration: 2-3 Days Severity: Moderate Pain/Injury Location: Chest Allergies and Home Medications Allergies Coded Allergies: No Known Drug Allergies (Unverified , 02/27/09) Home Medications Amoxicillin 500 Mg Capsule, 1,000 MG PO TID Prescribed by: MARY POP on 07/06/182017 Famotidine 20 Mg Tablet, 20 MG PO BID PRN Prescribed by: HARI CRUZ MD on 05/02/191734 Gabapentin 300 Mg Capsule, 300 MG PO BID PRN for PAIN-MODERATE (5-7) Prescribed by: MANISHA BRIGHT on 09/30/19118 Hydrocodone Bit/Acetaminophen 1 Tab Tab, 1-2 EACH PO Q6H PRN for PAIN-MODERATE Prescribed by: MANISHA BRIGHT on 09/30/19118 Ondansetron 4 Mg Tab.rapdis, 4 MG SL Q4H PRN for NAUSEA/VOMITING Prescribed by: MANISHA BRIGHT on 12/23/19 0836 Prednisone 20 Mg Tab, 40 MG PO DAILY Prescribed by: HARI CRUZ MD on 05/02/191734 Prednisone 20 Mg Tab, 40 MG PO DAILY Prescribed by: MANISHA BRIGHT on 09/30/19 011 Sulfamethoxazole/Trimethoprim 1 Each Tablet, 1 EACH PO BID Prescribed by: MARCO A MCCOLLUM on 02/16/17 2240 Sulfamethoxazole/Trimethoprim 1 Each Tablet, 1 EACH PO BID Prescribed by: DEANN STEELE on 04/06/19 0002 Triamcinolone Acet 15 Gm Cr, 80 GM TP TID PRN for RASH Prescribed by: HARI CRUZ MD on 05/02/191734 Patient Home Medication List Home Medication List Reviewed: Yes Review of Systems Constitutional: see HPI EENTM: see HPI Respiratory: no symptoms reported Cardiovascular: no symptoms reported Genitourinary: no symptoms reported Musculoskeletal: no symptoms reported Skin: no symptoms reported Psychiatric/Neurological: No Symptoms Reported Past Ysvpztb-Ykhsmf-Rmyyjj Hx Patient Social History Alcohol Beverage of Choice: Beer, Rum, Vodka Drug of Choice: meth Type Used: Cigarettes 2nd Hand Smoke Exposure: Yes Recent Foreign Travel: No Contact w/Someone Who Travel: No Recent Hopitalizations: No Immunizations Up To Date Tetanus Booster (TDap): Unknown Seasonal Allergies Seasonal Allergies: No Past Medical History Surgeries: Yes Ear Surgery Respiratory: No Cardiac: No Neurological: No Reproductive Disorders: No Genitourinary: No Gastrointestinal: No Musculoskeletal: Yes (chronic left ankle pain 5 years) Arthritis Endocrine: Yes (history of thyroid nodule) HEENT: No Cancer: No Psychosocial: No Integumentary: No Blood Disorders: No Family Medical History Cancer Physical Exam Vital Signs Vital Signs - First Documented 04/17/20 20:50 Pulse 120 Resp 20 B/P (MAP) 170/82 (111) Pulse Ox 99 O2 Delivery Room Air Capillary Refill : Height, Weight, BMI Height: 5'8.00" Weight: 220lbs. oz. 99.308272fx; 31.00 BMI Method:Stated General Appearance: No Apparent Distress, WD/WN HEENT: PERRL/EOMI, TMs Normal Neck: Full Range of Motion, Normal Inspection Cardiovascular: Normal Peripheral Pulses, Tachycardia Respiratory: No Accessory Muscle Use, No Respiratory Distress, Other (right chest wall is tender to palpation but there is no bruising) Gastrointestinal: Normal Bowel Sounds, Non Tender, Soft Extremity: Normal Capillary Refill, Normal Inspection Neurologic/Psychiatric: Alert, Oriented x3 Skin: Normal Color, Warm/Dry Progress/Results/Core Measures Results/Orders Lab Results Laboratory Tests Test 04/17/20 20:49 Range/Units White Blood Count 9.4 4.3-11.0 10^3/uL Red Blood Count 6.05 H 4.35-5.85 10^6/uL Hemoglobin 17.6 13.3-17.7 G/DL Hematocrit 50 40-54 % Mean Corpuscular Volume 83 80-99 FL Mean Corpuscular Hemoglobin 29 25-34 PG Mean Corpuscular Hemoglobin Concent 35 32-36 G/DL Red Cell Distribution Width 13.8 10.0-14.5 % Platelet Count 200 130-400 10^3/uL Mean Platelet Volume 10.9 H 7.4-10.4 FL Neutrophils (%) (Auto) 65 42-75 % Lymphocytes (%) (Auto) 23 12-44 % Monocytes (%) (Auto) 6 0-12 % Eosinophils (%) (Auto) 6 0-10 % Basophils (%) (Auto) 0 0-10 % Neutrophils # (Auto) 6.1 1.8-7.8 X 10^3 Lymphocytes # (Auto) 2.2 1.0-4.0 X 10^3 Monocytes # (Auto) 0.6 0.0-1.0 X 10^3 Eosinophils # (Auto) 0.5 H 0.0-0.3 10^3/uL Basophils # (Auto) 0.0 0.0-0.1 10^3/uL Sodium Level 139 135-145 MMOL/L Potassium Level 3.9 3.6-5.0 MMOL/L Chloride Level 106 98-107 MMOL/L Carbon Dioxide Level 20 L 21-32 MMOL/L Anion Gap 13 5-14 MMOL/L Blood Urea Nitrogen 12 7-18 MG/DL Creatinine 0.90 0.60-1.30 MG/DL Estimat Glomerular Filtration Rate > 60 BUN/Creatinine Ratio 13 Glucose Level 89 70-105 MG/DL Calcium Level 9.8 8.5-10.1 MG/DL Corrected Calcium 8.5-10.1 MG/DL Total Bilirubin 0.3 0.1-1.0 MG/DL Aspartate Amino Transf (AST/SGOT) 25 5-34 U/L Alanine Aminotransferase (ALT/SGPT) 38 0-55 U/L Alkaline Phosphatase 81 40-136 U/L Total Protein 7.8 6.4-8.2 GM/DL Albumin 4.8 H 3.2-4.5 GM/DL My Orders Orders - GAIL RIVAS APRN Cbc With Automated Diff (04/17/20 20:51) Comprehensive Metabolic Panel (04/17/20 20:51) Ed Iv/Invasive Line Start (04/17/20 20:51) Ct Chest/Abdomen/Pelvis W (04/17/20 20:51) Fentanyl Injection (Sublimaze Injection (04/17/20 21:00) Iohexol Injection (Omnipaque 350 Mg/Ml 1 (04/17/20 21:00) Received Contrast (Hold Metformin- Contr (04/17/20 21:00) Ns (Ivpb) (Sodium Chloride 0.9% Ivpb Bag (04/17/20 21:00) Medications Given in ED Current Medications Medications Dose Ordered Sig/Jeffrey Route Start Time Stop Time Status Last Admin Dose Admin Fentanyl Citrate 50 mcg ONCE ONCE IVP 04/17/20 21:00 04/17/20 21:01 DC 04/17/20 21:20 50 MCG Iohexol 100 ml ONCE ONCE IV 04/17/20 21:00 04/17/20 21:09 DC 04/17/20 21:09 100 ML Sodium Chloride 100 ml ONCE ONCE IV 04/17/20 21:00 04/17/20 21:09 DC 04/17/20 21:09 80 ML Vital Signs/I&O 04/17/20 20:50 Pulse 120 Resp 20 B/P (MAP) 170/82 (111) Pulse Ox 99 O2 Delivery Room Air Departure Impression Primary Impression: Chest wall contusion Qualified Codes: S20.211A - Contusion of right front wall of thorax, initial encounter Disposition: HOME, SELF-CARE Condition: Stable Departure-Patient Inst. Decision time for Depature: 21:34 Referrals: SMITA HERNANDEZ DO (PCP/Family) Primary Care Physician Patient Instructions: Contusion (DC), Blunt Chest Trauma Add. Discharge Instructions: 1. Return to ER for any concerns 2.Follow-up with your doctor next week 3. All discharge instructions reviewed with patient and/or family. Voiced underst anding. Work/School Note: Work Release Form Date Seen in the Emergency Department: Apr 17, 2020 Return to Work: Apr 18, 2020 Images Torso/Trunk 1 - Tenderness GAIL RIVAS APRN Apr 17, 2020 20:56
[2020-04-17] MEDS ORDERED: IOHEXOL 350 MG/ML 100 ML (OMNIPAQUE 350) VIAL IV ONE (21:00)
[2020-04-17] MEDS ORDERED: HOLD METFORMIN - RECEIVED CONTRAST 20 ML VIAL IV SCH (21:00)
[2020-04-17] MEDS ORDERED: fentaNYL INJECTION 100 MCG/2 ML AMP IVP ONE (21:00)
[2020-04-17] MEDS ORDERED: NS 100 ML (IVPB) BAG IV ONE (21:00)
[2020-04-17 21:09] LABS: BASOPHILS % (AUTO) 0 % (0-10); EOSINOPHILS # (AUTO) 0.5 10^3/uL (0.0-0.3); EOSINOPHILS % (AUTO) 6 % (0-10); HEMATOCRIT 50 % (40-54); HEMOGLOBIN 17.6 G/DL (13.3-17.7); LYMPHOCYTES # (AUTO) 2.2 X 10^3 (1.0-4.0); LYMPHOCYTES % (AUTO) 23 % (12-44); MEAN CORPUSCULAR HEMOGLOBIN 29 PG (25-34); MEAN CORPUSCULAR HGB CONC 35 G/DL (32-36); MEAN CORPUSCULAR VOLUME 83 FL (80-99); MEAN PLATELET VOLUME 10.9 FL (7.4-10.4); MONOCYTES # (AUTO) 0.6 X 10^3 (0.0-1.0); MONOCYTES % (AUTO) 6 % (0-12); NEUTROPHILS # (AUTO) 6.1 X 10^3 (1.8-7.8); NEUTROPHILS % (AUTO) 65 % (42-75); PLATELET COUNT 200 10^3/uL (130-400); RED CELL DISTRIBUTION WIDTH 13.8 % (10.0-14.5); WHITE BLOOD COUNT 9.4 10^3/uL (4.3-11.0)
[2020-04-17 21:18] LABS: ALBUMIN 4.8 GM/DL (3.2-4.5); CHLORIDE 106 MMOL/L (98-107); POTASSIUM 3.9 MMOL/L (3.6-5.0); SODIUM 139 MMOL/L (135-145)
[2020-04-17 21:19] LABS: CALCIUM 9.8 MG/DL (8.5-10.1)
[2020-04-17 21:21] LABS: GLUCOSE 89 MG/DL (70-105); TOTAL PROTEIN 7.8 GM/DL (6.4-8.2)
[2020-04-17 21:22] LABS: BILIRUBIN,TOTAL 0.3 MG/DL (0.1-1.0); CARBON DIOXIDE 20 MMOL/L (21-32)
[2020-04-17 21:24] LABS: ALKALINE PHOSPHATASE 81 U/L (40-136); GFR ESTIMATED > 60
[2020-04-17 21:25] LABS: BUN/CREATININE RATIO 13
[2020-04-17 21:27] LABS: ALANINE AMINOTRANSFERASE 38 U/L (0-55)
--- NOTE | 2020-04-17 21:35 | NUR ---
Patient states pain has improved with fentanyl. He is resting quietly in bed and denies any needs at this time.
[2020-04-17] MEDS ORDERED: RX-HYDROCODONE/APAP 5/325 MG #4 TAB PK PO PRN (21:45)
--- NOTE | 2020-04-17 21:51 | Diagnostic Imaging Report ---
PROCEDURE: CT chest, abdomen, and pelvis with contrast. TECHNIQUE: Multiple contiguous axial images were obtained through the chest, abdomen, and pelvis after the administration of intravenous contrast. Auto Exposure Controls were utilized during the CT exam to meet ALARA standards for radiation dose reduction. INDICATION: Trauma with chest and right flank pain. COMPARISON is made to previous study of 12/23/2019 CT CHEST: Right convexity curvature of the thoracic spine is similar in overall appearance compared to previous study. There is no evidence of acute fracture. The lungs are clear without evidence of contusion, pneumothorax or significant pleural fluid. There is no evidence of mediastinal hematoma or pericardial fluid. There is no evidence of adverse change. IMPRESSION: 1. No CT evidence of acute abnormality in the chest or significant change when compared to study of 12/23/2019. CT ABDOMEN PELVIS: No focal hepatic or splenic abnormality is identified. No gallbladder, pancreatic, adrenal gland or renal abnormality is seen. There is no evidence of free fluid within the abdomen or pelvis. There is a moderate amount of stool in the colon. The appendix has a normal appearance. Partially opacified urinary bladder is unremarkable without perivesicular contrast extravasation. There is no appendiceal inflammation. No acute osseous abnormality is identified. There is left convexity curvature of the lumbar spine which is not appreciably changed from previous examination. IMPRESSION: 1. No CT evidence of acute abdominal or pelvic visceral injury. Dictated by: Dictated on workstation # [id number]
[2020-04-17 21:58] VITALS: BP 144/80
== END 2020-04-17 22:08 | disposition home or self-care (01) ==
LOC: EDUNIT# 20:37 → ER 20:38
DX: S20.211A Contusion of right front wall of thorax, initial encounter (principal); G89.29 Other chronic pain; M25.572 Pain in left ankle and joints of left foot; Z79.891 Long term (current) use of opiate analgesic; Z79.52 Long term (current) use of systemic steroids; Z77.22 Contact with and (suspected) exposure to environmental tobacco smoke (acute) (chronic); W22.8XXA Striking against or struck by other objects, initial encounter
CPT/HCPCS: 36415; 71260; 74177; 80053; 85025

== ENCOUNTER 2020-06-29 08:14 | Emergency (ER) | payer SELFPAY ==
[~2020-06-29] VITALS: Ht 175.2 cm; Wt 100.0 kg
[2020-06-29] MEDS ORDERED: NS IV 1000 ML 1,000 ML IV SCH (09:16)
--- NOTE | 2020-06-29 09:23 | ED Headache ---
General Chief Complaint: Headache Stated Complaint: FOREHEAD BUMPS/PAIN Source: patient (POLO DENNY,MED STUDENT) History of Present Illness Date Seen by Provider: Jun 29, 2020 Time Seen by Provider: 09:01 Initial Comments 25yo male presents with 2-3day history headache that is located bilaterally over his forehead and behind his eyes. He reports having bumps on his head that run from his hairline to his eyebrows and that are pain to palpation that have been present for the last couple of days. 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 He admits to using methamphetamine occasional. Last used 4days ago. He denies having any constitutional symptoms but admits to having some blurred vision and double vision. Timing/Duration: constant, other (2-3days ) Severity/Quality: severe, constant, sharp Location: frontal Prior Headaches/Recent Trauma: head trauma > 24 hrs ago Modifying Factors: improves with exposure to light (makes headache worse ) Associated Symptoms: No confusion, No fatigue, No facial pain, No fever/chills, No loss of consciousness, No nausea/vomiting; nasal drainage (POLO DENNY,MED STUDENT) Allergies and Home Medications Allergies Coded Allergies: No Known Drug Allergies (Unverified , 02/27/09) Home Medications Amoxicillin 500 Mg Capsule, 1,000 MG PO TID Prescribed by: MARY POP on 07/06/182017 Amoxicillin/Potassium Clav 1 Each Tablet, 1 EACH PO BID Prescribed by: GAIL RIVAS on 06/29/20 110 Famotidine 20 Mg Tablet, 20 MG PO BID PRN Prescribed by: HARI CRUZ MD on 05/02/19 1735 Gabapentin 300 Mg Capsule, 300 MG PO BID PRN for PAIN-MODERATE (5-7) Prescribed by: MANISHA BRIGHT on 09/30/19 011 Hydrocodone Bit/Acetaminophen 1 Tab Tab, 1-2 EACH PO Q6H PRN for PAIN-MODERATE Prescribed by: MANISHA BRIGHT on 09/30/19 011 Ondansetron 4 Mg Tab.rapdis, 4 MG SL Q4H PRN for NAUSEA/VOMITING Prescribed by: MANISHA BRIGHT on 12/23/19 0836 Prednisone 20 Mg Tab, 40 MG PO DAILY Prescribed by: HARI CRUZ MD on 05/02/19 1735 Prednisone 20 Mg Tab, 40 MG PO DAILY Prescribed by: MANISHA BRIGHT on 09/30/19 0119 Sulfamethoxazole/Trimethoprim 1 Each Tablet, 1 EACH PO BID Prescribed by: MARCO A MCCOLLUM on 02/16/17 2240 Sulfamethoxazole/Trimethoprim 1 Each Tablet, 1 EACH PO BID Prescribed by: DEANN STEELE on 04/06/19 0002 Triamcinolone Acet 15 Gm Cr, 80 GM TP TID PRN for RASH Prescribed by: HARI CRUZ MD on 05/02/19 1735 Patient Home Medication List Home Medication List Reviewed: Yes (GAIL RIVAS APRN) Review of Systems Review of Systems Constitutional: No chills, No diaphoresis, No fever, No malaise, No weakness Eyes: Denies Blindness; Blurred Vision, Drainage, Decreased Acuity; Denies Foreign Body Sensation, Denies Inflammation, Denies Pain; Photophobia Ears, Nose, Mouth, Throat: denies ear pain, denies ear discharge, denies nose pain; nose discharge; denies epistaxis Respiratory: cough; No dyspnea on exertion, No hemoptysis, No short of breath Cardiovascular: No chest pain, No edema, No Hx of Intervention, No palpitations Gastrointestinal: No abdominal pain, No constipation, No diarrhea Psychiatric/Neurological: Denies Anxiety, Denies Depressed; Headache; Denies Paresthesia, Denies Weakness (POLO DENNY MED STUDENT) Past Mfbffde-Ugsnhi-Jswipz Hx Patient Social History Alcohol Beverage of Choice: Beer, Rum, Vodka Drug of Choice: THC Type Used: Cigarettes 2nd Hand Smoke Exposure: Yes Recent Foreign Travel: No Contact w/Someone Who Travel: No Recent Hopitalizations: No (POLO DENNY MED STUDENT) Immunizations Up To Date Tetanus Booster (TDap): Unknown (POLO DENNY MED STUDENT) Seasonal Allergies Seasonal Allergies: No (POLO DENNY MED STUDENT) Past Medical History Surgeries: Yes Ear Surgery Respiratory: No Cardiac: No Neurological: No Reproductive Disorders: No Genitourinary: No Gastrointestinal: No Musculoskeletal: Yes (chronic left ankle pain 5 years) Arthritis Endocrine: Yes (history of thyroid nodule) HEENT: No Cancer: No Psychosocial: No Integumentary: No Blood Disorders: No (POLO DENNY MED STUDENT) Family Medical History Cancer (DENNY,POLO,MED STUDENT) Physical Exam Vital Signs Vital Signs - First Documented 06/29/20 06/29/20 08:51 11:12 Temp 36.7 Pulse 115 Resp 18 B/P (MAP) 142/100 (114) Pulse Ox 99 O2 Delivery Room Air (SHAHBAZWALLY ARGUELLES) Vital Signs Capillary Refill : (POLO DENNY,MED STUDENT) Height, Weight, BMI Height: 5'8.00" Weight: 220lbs. oz. 99.837100ko; 31.00 BMI Method:Stated General Appearance: WD/WN, no apparent distress HEENT: PERRL/EOMI (Did produce a headache on EOM testing ); No scleral icterus (R), No scleral icterus (L), No pale conjunctivae (R), No pale conjunctivae (L) Cardiovascular: normal peripheral pulses, no edema, no gallop, no JVD, no murmur, tachycardia Respiratory: chest non-tender, lungs clear, normal breath sounds, no respiratory distress, no accessory muscle use Psychiatric: alert, oriented x 3 Crainal Nerves: normal speech, PERRL; No abnormal eye position, No abnormal pupil position, No abnormal speech, No facial asymmetry, No facial droop, No facial paresthesias, No facial weakness, No gaze palsy, No hearing deficit (R); hearing deficit (L) (reports 90% hearing deficit on this side ); No tongue deviation to R, No tongue deviation to L Motor/Sensory: no motor deficit, no sensory deficit Skin: normal color, warm/dry (POLO DENNY,MED STUDENT) Progress/Results/Core Measures Results/Orders Lab Results Laboratory Tests Test 06/29/20 09:47 06/29/20 09:50 Range/Units Urine Color YELLOW Urine Clarity CLEAR Urine pH 5.5 5-9 Urine Specific [place] >=1.030 1.016-1.022 Urine Protein NEGATIVE NEGATIVE Urine Glucose (UA) NEGATIVE NEGATIVE Urine Ketones NEGATIVE NEGATIVE Urine Nitrite NEGATIVE NEGATIVE Urine Bilirubin NEGATIVE NEGATIVE Urine Urobilinogen 0.2 < = 1.0 MG/DL Urine Leukocyte Esterase NEGATIVE NEGATIVE Urine RBC (Auto) NEGATIVE NEGATIVE Urine RBC NONE /HPF Urine WBC NONE /HPF Urine Crystals NONE /LPF Urine Bacteria NEGATIVE /HPF Urine Casts NONE /LPF Urine Mucus NEGATIVE /LPF Urine Culture Indicated NO Urine Opiates Screen NEGATIVE NEGATIVE Urine Oxycodone Screen NEGATIVE NEGATIVE Urine Methadone Screen NEGATIVE NEGATIVE Urine Propoxyphene Screen NEGATIVE NEGATIVE Urine Barbiturates Screen NEGATIVE NEGATIVE Ur Tricyclic Antidepressants Screen NEGATIVE NEGATIVE Urine Phencyclidine Screen NEGATIVE NEGATIVE Urine Amphetamines Screen POSITIVE H NEGATIVE Urine Methamphetamines Screen POSITIVE H NEGATIVE Urine Benzodiazepines Screen NEGATIVE NEGATIVE Urine Cocaine Screen NEGATIVE NEGATIVE Urine Cannabinoids Screen NEGATIVE NEGATIVE White Blood Count 9.0 4.3-11.0 10^3/uL Red Blood Count 5.71 H 4.30-5.52 10^6/uL Hemoglobin 16.6 13.3-17.7 g/dL Hematocrit 50 40-54 % Mean Corpuscular Volume 87 80-99 fL Mean Corpuscular Hemoglobin 29 25-34 pg Mean Corpuscular Hemoglobin Concent 33 32-36 g/dL Red Cell Distribution Width 13.2 10.0-14.5 % Platelet Count 193 130-400 10^3/uL Mean Platelet Volume 10.5 9.0-12.2 fL Immature Granulocyte % (Auto) 0 % Neutrophils (%) (Auto) 50 42-75 % Lymphocytes (%) (Auto) 31 12-44 % Monocytes (%) (Auto) 10 0-12 % Eosinophils (%) (Auto) 8 0-10 % Basophils (%) (Auto) 1 0-10 % Neutrophils # (Auto) 4.5 1.8-7.8 10^3/uL Lymphocytes # (Auto) 2.8 1.0-4.0 10^3/uL Monocytes # (Auto) 0.9 0.0-1.0 10^3/uL Eosinophils # (Auto) 0.7 H 0.0-0.3 10^3/uL Basophils # (Auto) 0.1 0.0-0.1 10^3/uL Immature Granulocyte # (Auto) 0.0 0.0-0.1 10^3/uL Sodium Level 141 135-145 MMOL/L Potassium Level 4.1 3.6-5.0 MMOL/L Chloride Level 104 98-107 MMOL/L Carbon Dioxide Level 25 21-32 MMOL/L Anion Gap 12 5-14 MMOL/L Blood Urea Nitrogen 17 7-18 MG/DL Creatinine 1.05 0.60-1.30 MG/DL Estimat Glomerular Filtration Rate > 60 BUN/Creatinine Ratio 16 Glucose Level 93 70-105 MG/DL Calcium Level 9.5 8.5-10.1 MG/DL Corrected Calcium 8.5-10.1 MG/DL Total Bilirubin 0.5 0.1-1.0 MG/DL Aspartate Amino Transf (AST/SGOT) 18 5-34 U/L Alanine Aminotransferase (ALT/SGPT) 29 0-55 U/L Alkaline Phosphatase 74 40-136 U/L Total Protein 7.4 6.4-8.2 GM/DL Albumin 4.7 H 3.2-4.5 GM/DL (WALLY HARTMANN) My Orders Orders - WALLY HARTMANN Ct Head Wo-R/O Stroke (06/29/20 09:10) Cbc With Automated Diff (06/29/20 09:10) Comprehensive Metabolic Panel (06/29/20 09:10) Drug Screen Stat (Urine) (06/29/20 09:10) Ua Culture If Indicated (06/29/20 09:10) Ed Iv/Invasive Line Start (06/29/20 09:16) Ns Iv 1000 Ml (Sodium Chloride 0.9%) (06/29/20 09:16) (WALLY HARTMANN) Vital Signs/I&O 06/29/20 06/29/20 08:51 11:12 Temp 36.7 Pulse 115 100 Resp 18 B/P (MAP) 142/100 (114) 138/79 Pulse Ox 99 99 O2 Delivery Room Air (SHAHBAZWALLY Manley) Progress Progress Note : Progress Note I have seen and evaluated this 25yo male. He presented to the ED with 2-3 hx of headache and last using methamphetamine 4days ago. He reports being hit in the head earlier in the week by a bolt while working on a car. He denies having any focal neurologic deficits but does admit to changing a constant bilateral frontal headache, blurring of his vision, and worsening of his symptoms with lights and having to focus his vision. Labs: CBC, CMP, UA w/ UDS. non-contrast CT head preformed and awaiting read by Radiologist. At this time, a concussion is the most likely explanation for the patient's symptoms. Cluster headache does not fit based on time course and distribution of the headache. Atypical migraine is possible but not the best explanation. intracranial hemorrhage is possible and can be r/i or r/o by the head non-contrast head CT. (POLO DENNY,MED STUDENT) Diagnostic Imaging Diagonstic Imaging: CT Plain Films/CT/US/NM/MRI: head Comments NAME: SARA CASTELLANOS MED REC#: [id number] PT STATUS: REG ER : 1995 PHYSICIAN: WALLY HARTMANN ADMIT DATE: 06/29/20/ER Draft Date of Exam:06/29/20 CT HEAD WO-R/O STROKE PROCEDURE: CT head wo r/o stroke. TECHNIQUE: Multiple contiguous axial images were obtained through the brain without the use of intravenous contrast. Auto Exposure Controls were utilized during the CT exam to meet ALARA standards for radiation dose reduction. INDICATION: Right eye visual disturbance. Headache. Skin changes. COMPARISON: CT head without contrast 03/04/2018. FINDINGS: No intracranial hemorrhage, mass effect, hydrocephalus or extra-axial fluid collections. No CT evidence of a territorial infarction. Osseous structures are intact. Moderate mucosal thickening in the left maxillary sinus, mild on the right. The mastoids are clear. IMPRESSION: 1. No acute intracranial CT findings. 2. Moderate mucosal thickening in the left maxillary sinus, mild on the right. Dictated on workstation # [id number] Dict: 06/29/20928 Trans: 06/29/2037 [facility] [id number] Interpreted by: ROBERT ALCOCER MD Electronically signed by: (WALLY HARTMANN) Departure Impression Primary Impression: Sinusitis Qualified Codes: J01.90 - Acute sinusitis, unspecified Additional Impression: Concussion Qualified Codes: S06.0X0A - Concussion without loss of consciousness, initial encounter Disposition: HOME, SELF-CARE Condition: Stable Departure-Patient Inst. Decision time for Depature: 11:01 (GAIL RIVAS APRN) Referrals: SMITA HERNANDEZ DO (PCP/Family) Primary Care Physician Patient Instructions: Sinus Headache (DC) Add. Discharge Instructions: 1. Antibiotic as directed 2. Return to ER for any concerns 3. Follow up with her doctor this week for recheck. All discharge instructions reviewed with patient and/or family. Voiced understanding. Scripts Amoxicillin/Potassium Clav (Augmentin 875-125 Tablet) 1 Each Tablet 1 EACH PO BID, #14 TAB 0 Refills Prov: GAIL RIVAS APRN 06/29/20 Patient seen and evaluated by medical student, assessment by this provider and documentation reviewed and agreed upon. (WALLY HARTMANN) POLO DENNY,MED STUDENT Jun 29, 2020 09:23 WALLY HARTMANN Jun 29, 2020 09:52 GAIL RIVAS APRN Jun 29, 2020 11:02
--- NOTE | 2020-06-29 09:37 | Diagnostic Imaging Report ---
PROCEDURE: CT head wo r/o stroke. TECHNIQUE: Multiple contiguous axial images were obtained through the brain without the use of intravenous contrast. Auto Exposure Controls were utilized during the CT exam to meet ALARA standards for radiation dose reduction. INDICATION: Right eye visual disturbance. Headache. Skin changes. COMPARISON: CT head without contrast 03/04/2018. FINDINGS: No intracranial hemorrhage, mass effect, hydrocephalus or extra-axial fluid collections. No CT evidence of a territorial infarction. Osseous structures are intact. Moderate mucosal thickening in the left maxillary sinus, mild on the right. The mastoids are clear. IMPRESSION: 1. No acute intracranial CT findings. 2. Moderate mucosal thickening in the left maxillary sinus, mild on the right. Dictated by: Dictated on workstation # [id number]
[2020-06-29 10:14] LABS: BASOPHILS # (AUTO) 0.1 10^3/uL (0.0-0.1); BASOPHILS % (AUTO) 1 % (0-10); EOSINOPHILS # (AUTO) 0.7 10^3/uL (0.0-0.3); EOSINOPHILS % (AUTO) 8 % (0-10); HEMATOCRIT 50 % (40-54); HEMOGLOBIN 16.6 g/dL (13.3-17.7); LYMPHOCYTES # (AUTO) 2.8 10^3/uL (1.0-4.0); LYMPHOCYTES % (AUTO) 31 % (12-44); MEAN CORPUSCULAR HEMOGLOBIN 29 pg (25-34); MEAN CORPUSCULAR HGB CONC 33 g/dL (32-36); MEAN CORPUSCULAR VOLUME 87 fL (80-99); MEAN PLATELET VOLUME 10.5 fL (9.0-12.2); MONOCYTES # (AUTO) 0.9 10^3/uL (0.0-1.0); MONOCYTES % (AUTO) 10 % (0-12); NEUTROPHILS # (AUTO) 4.5 10^3/uL (1.8-7.8); NEUTROPHILS % (AUTO) 50 % (42-75); PLATELET COUNT 193 10^3/uL (130-400)
[2020-06-29 10:17] LABS: ALBUMIN 4.7 GM/DL (3.2-4.5)
[2020-06-29 10:17] LABS: BILIRUBIN,URINE NEGATIVE (NEGATIVE); CLARITY,URINE CLEAR; COLOR,URINE YELLOW; GLUCOSE, URINE (UA) NEGATIVE (NEGATIVE); KETONES,URINE NEGATIVE (NEGATIVE); LEUKOCYTE ESTERASE ,URINE NEGATIVE (NEGATIVE); NITRITE,URINE NEGATIVE (NEGATIVE); PH,URINE 5.5 (5-9); PROTEIN,URINE NEGATIVE (NEGATIVE)
[2020-06-29 10:18] LABS: CHLORIDE 104 MMOL/L (98-107); POTASSIUM 4.1 MMOL/L (3.6-5.0); SODIUM 141 MMOL/L (135-145)
[2020-06-29 10:19] LABS: CALCIUM 9.5 MG/DL (8.5-10.1)
[2020-06-29 10:20] LABS: GLUCOSE 93 MG/DL (70-105); TOTAL PROTEIN 7.4 GM/DL (6.4-8.2)
[2020-06-29 10:21] LABS: CARBON DIOXIDE 25 MMOL/L (21-32)
[2020-06-29 10:22] LABS: BILIRUBIN,TOTAL 0.5 MG/DL (0.1-1.0)
[2020-06-29 10:23] LABS: ALKALINE PHOSPHATASE 74 U/L (40-136); CREATININE SERUM 1.05 MG/DL (0.60-1.30); GFR ESTIMATED > 60
[2020-06-29 10:24] LABS: BUN/CREATININE RATIO 16
[2020-06-29 10:26] LABS: ALANINE AMINOTRANSFERASE 29 U/L (0-55)
[2020-06-29 10:27] LABS: BACTERIA,URINE NEGATIVE /HPF
[2020-06-29 10:42] LABS: AMPHETAMINE SCREEN, URINE POSITIVE (NEGATIVE); BARBITURATE SCREEN URINE NEGATIVE (NEGATIVE); BENZODIAZEPINES SCREEN URINE NEGATIVE (NEGATIVE); CANNABINOID SCREEN, URINE NEGATIVE (NEGATIVE); COCAINE SCREEN URINE NEGATIVE (NEGATIVE); METHADONE STAT NEGATIVE (NEGATIVE); METHAMPHETAMINE SCREEN URINE S POSITIVE (NEGATIVE); OPIATE SCREEN URINE NEGATIVE (NEGATIVE); OXYCODONE STAT NEGATIVE (NEGATIVE); PROPOXYPHENE STAT NEGATIVE (NEGATIVE); TRICYCLIC ANTIDEPRESSANTS SCRE NEGATIVE (NEGATIVE)
[2020-06-29] MEDS ORDERED: AMOX-358 PO (11:02)
[2020-06-29 11:12] VITALS: BP 138/79
== END 2020-06-29 11:16 | disposition home or self-care (01) ==
LOC: EDUNIT# 08:14 → ER 08:18
DX: S06.0X0A Concussion without loss of consciousness, initial encounter (principal); J01.90 Acute sinusitis, unspecified; Z79.52 Long term (current) use of systemic steroids; Z77.22 Contact with and (suspected) exposure to environmental tobacco smoke (acute) (chronic); W22.8XXA Striking against or struck by other objects, initial encounter
CPT/HCPCS: 36415; 70450; 80053; 80306; 81000; 85025

== ENCOUNTER 2021-01-15 20:47 | Emergency (ER) | payer SELFPAY ==
[~2021-01-15] VITALS: Ht 172.7 cm; Wt 99.8 kg
[~2021-01-15 20:47] MED LIST changes: +AMOX-358 PO
[2021-01-15] MEDS ORDERED: FAMOTIDINE 20MG/2ML IV (PEPCID) IV STA (21:39)
--- NOTE | 2021-01-15 21:44 | ED Abdominal Pain ---
General Chief Complaint: Abdominal/GI Problems Stated Complaint: COFFEE GROUND VOMITING/FEVER/CHILLS Nursing Triage Note: PT AMBULATE TO ROOM 10 WITH C/O FEVER OF 99.8, RED AND BLACK VOMIT THAT "LOOKED LIKE COFFEE GROUNDS" Sepsis Screen: No Definite Risk Source of Information: Patient Exam Limitations: No Limitations History of Present Illness Date Seen by Provider: Jan 15, 2021 Time Seen by Provider: 21:28 Initial Comments Patient arrives to the ER by private conveyance from home with chief complaint since about 10:00 this morning has been having some nausea vomiting epigastric and right upper quadrant abdominal pain. He says this time last year he had similar symptoms came out to the ER had a scan was told he had gallstones as well as probably ulcers but has never had a EGD or colonoscopy. He says his vomit looked like coffee grounds. No history of anemia chest pain shortness of air or weakness. He said he measured a fever T-max of 99.0. He has not had anything to eat or drink since yesterday he had cereal. He has normal, formed bowel movement earlier today. He never followed up anywhere for his problems a year ago and does not follow with a doctor routinely. Unremarkable gallbladder ultrasound December 2020 Allergies and Home Medications Allergies Coded Allergies: No Known Drug Allergies (Unverified , 02/27/09) Home Medications Amoxicillin 500 Mg Capsule, 1,000 MG PO TID Prescribed by: MARY POP on 07/06/182017 Amoxicillin/Potassium Clav 1 Each Tablet, 1 EACH PO BID Prescribed by: GAIL RIVAS on 06/29/20 1102 Famotidine 20 Mg Tablet, 20 MG PO BID PRN Prescribed by: HARI CRUZ MD on 05/02/19 1735 Gabapentin 300 Mg Capsule, 300 MG PO BID PRN for PAIN-MODERATE (5-7) Prescribed by: MANISHA BRIGHT on 09/30/19 011 Hydrocodone Bit/Acetaminophen 1 Tab Tab, 1-2 EACH PO Q6H PRN for PAIN-MODERATE Prescribed by: MANISHA BRIGHT on 09/30/19 011 Ondansetron 4 Mg Tab.rapdis, 4 MG SL Q4H PRN for NAUSEA/VOMITING Prescribed by: MANISHA BRIGHT on 12/23/19 0836 Ondansetron 4 Mg Tab.rapdis, 4 MG PO Q6H PRN for NAUSEA/VOMITING Prescribed by: KATI SONG on 01/15/212244 Pantoprazole Sodium 40 Mg Tablet.dr, 40 MG PO DAILY Prescribed by: KATI SONG on 01/15/212244 Prednisone 20 Mg Tab, 40 MG PO DAILY Prescribed by: HARI CRUZ MD on 05/02/191734 Prednisone 20 Mg Tab, 40 MG PO DAILY Prescribed by: MANISHA BRIGHT on 09/30/19 0119 Sucralfate 1 Gm Tablet, 1 GM PO QIDACHS Prescribed by: KATI SONG on 01/15/212244 Sulfamethoxazole/Trimethoprim 1 Each Tablet, 1 EACH PO BID Prescribed by: MARCO A MCCOLLUM on 02/16/172239 Sulfamethoxazole/Trimethoprim 1 Each Tablet, 1 EACH PO BID Prescribed by: DEANN STEELE on 04/06/19 0002 Triamcinolone Acet 15 Gm Cr, 80 GM TP TID PRN for RASH Prescribed by: HARI CRUZ MD on 05/02/191734 Patient Home Medication List Home Medication List Reviewed: Yes Review of Systems Review of Systems Constitutional: see HPI, chills, fever EENTM: No Blurred Vision, No Double Vision Respiratory: Denies Cough, Denies Shortness of Air Cardiovascular: Denies Chest Pain, Denies Edema Gastrointestinal: See HPI; Denies Abdomen Distended; Abdominal Pain, Nausea, Poor Fluid Intake, Vomiting Genitourinary: Denies Burning, Denies Discharge Musculoskeletal: No back pain, No joint pain All Other Systems Reviewed Negative Unless Noted: Yes Past Zfcnaso-Kuxasr-Rycugo Hx Patient Social History Alcohol Use: Past History Number of Drinks Today: FF Alcohol Beverage of Choice: Beer, Rum, Vodka Drug of Choice: POT Smoking Status: Current Everyday Smoker Type Used: Cigarettes 2nd Hand Smoke Exposure: Yes Recent Infectious Disease Expo: No Recent Hopitalizations: No Immunizations Up To Date Tetanus Booster (TDap): Unknown Seasonal Allergies Seasonal Allergies: No Past Medical History Surgeries: Yes Ear Surgery Respiratory: No Cardiac: No Neurological: No Reproductive Disorders: No Genitourinary: No Gastrointestinal: No Musculoskeletal: Yes (chronic left ankle pain 5 years) Arthritis Endocrine: Yes (history of thyroid nodule) HEENT: No Cancer: No Psychosocial: No Integumentary: No Blood Disorders: No Family Medical History Cancer Physical Exam Vital Signs Vital Signs - First Documented 01/15/21 21:32 Temp 36.7 Pulse 105 Resp 17 B/P (MAP) 144/98 (113) O2 Delivery Room Air Capillary Refill : Less Than 3 Seconds Height/Weight/BMI Height: 5'8.00" Weight: 220lbs. oz. 99.310507ei; 33.00 BMI Method:Stated General Appearance: WD/WN, mild distress HEENT: PERRL/EOMI, pharynx normal Neck: full range of motion, normal inspection Respiratory: lungs clear, normal breath sounds, no respiratory distress, no accessory muscle use Cardiovascular: normal peripheral pulses, regular rate, rhythm Gastrointestinal: normal bowel sounds (Quiescent), no organomegaly, guarding (Epigastric and right upper quadrant), tenderness (Right upper quadrant negative for Porter sign) Neurologic/Psychiatric: alert, oriented x 3 Skin: normal color, warm/dry Progress/Results/Core Measures Results/Orders Lab Results Laboratory Tests Test 01/15/21 21:46 01/15/21 22:10 Range/Units White Blood Count 7.8 4.3-11.0 10^3/uL Red Blood Count 5.94 H 4.30-5.52 10^6/uL Hemoglobin 17.1 13.3-17.7 g/dL Hematocrit 52 40-54 % Mean Corpuscular Volume 88 80-99 fL Mean Corpuscular Hemoglobin 29 25-34 pg Mean Corpuscular Hemoglobin Concent 33 32-36 g/dL Red Cell Distribution Width 13.1 10.0-14.5 % Platelet Count 188 130-400 10^3/uL Mean Platelet Volume 9.8 9.0-12.2 fL Immature Granulocyte % (Auto) 0 % Neutrophils (%) (Auto) 77 H 42-75 % Lymphocytes (%) (Auto) 14 12-44 % Monocytes (%) (Auto) 5 0-12 % Eosinophils (%) (Auto) 3 0-10 % Basophils (%) (Auto) 0 0-10 % Neutrophils # (Auto) 6.0 1.8-7.8 10^3/uL Lymphocytes # (Auto) 1.1 1.0-4.0 10^3/uL Monocytes # (Auto) 0.4 0.0-1.0 10^3/uL Eosinophils # (Auto) 0.3 0.0-0.3 10^3/uL Basophils # (Auto) 0.0 0.0-0.1 10^3/uL Immature Granulocyte # (Auto) 0.0 0.0-0.1 10^3/uL Prothrombin Time 13.4 12.2-14.7 SEC INR Comment 1.0 0.8-1.4 Activated Partial Thromboplast Time 32 24-35 SEC Sodium Level 145 135-145 MMOL/L Potassium Level 4.1 3.6-5.0 MMOL/L Chloride Level 104 98-107 MMOL/L Carbon Dioxide Level 30 21-32 MMOL/L Anion Gap 11 5-14 MMOL/L Blood Urea Nitrogen 12 7-18 MG/DL Creatinine 1.13 0.60-1.30 MG/DL Estimat Glomerular Filtration Rate > 60 BUN/Creatinine Ratio 11 Glucose Level 120 H 70-105 MG/DL Calcium Level 10.8 H 8.5-10.1 MG/DL Corrected Calcium 8.5-10.1 MG/DL Total Bilirubin 0.8 0.1-1.0 MG/DL Aspartate Amino Transf (AST/SGOT) 19 5-34 U/L Alanine Aminotransferase (ALT/SGPT) 31 0-55 U/L Alkaline Phosphatase 88 40-136 U/L Total Protein 7.9 6.4-8.2 GM/DL Albumin 4.8 H 3.2-4.5 GM/DL Lipase 16 8-78 U/L Serum Alcohol < 10 <10 MG/DL Urine Color YELLOW Urine Clarity CLEAR Urine pH 8.5 5-9 Urine Specific [place] 1.020 1.016-1.022 Urine Protein NEGATIVE NEGATIVE Urine Glucose (UA) NEGATIVE NEGATIVE Urine Ketones NEGATIVE NEGATIVE Urine Nitrite NEGATIVE NEGATIVE Urine Bilirubin NEGATIVE NEGATIVE Urine Urobilinogen 1.0 < = 1.0 MG/DL Urine Leukocyte Esterase NEGATIVE NEGATIVE Urine RBC (Auto) NEGATIVE NEGATIVE Urine RBC NONE /HPF Urine WBC NONE /HPF Urine Crystals PRESENT H /LPF Urine Amorphous Sediment LARGE [place] PHOSPHATE H /LPF Urine Bacteria NEGATIVE /HPF Urine Casts NONE /LPF Urine Mucus NEGATIVE /LPF Urine Culture Indicated NO My Orders Orders - KATI SONG Lipase (01/15/21 21:39) Ondansetron Injection (Zofran Injectio (01/15/21 21:45) Lidocaine 2% Viscous 15 Ml (Xylocaine Vi (01/15/21 21:45) Antacid Suspension (Mylanta Suspension (01/15/21 21:45) Famotidine Injection (Pepcid Injection) (01/15/21 21:39) Ed Iv/Invasive Line Start (01/15/21 21:39) Medications Given in ED Current Medications Medications Dose Ordered Sig/Jeffrey Route Start Time Stop Time Status Last Admin Dose Admin Al Hydrox/Mg Hydrox/Simethicone 30 ml ONCE ONCE PO 01/15/21 21:45 01/15/21 21:46 DC 01/15/21 21:47 30 ML Lidocaine HCl 15 ml ONCE ONCE PO 01/15/21 21:45 01/15/21 21:46 DC 01/15/21 21:47 15 ML Ondansetron HCl 8 mg ONCE ONCE IVP 01/15/21 21:45 01/15/21 21:46 DC 01/15/21 21:47 8 MG Vital Signs/I&O 01/15/21 21:32 Temp 36.7 Pulse 105 Resp 17 B/P (MAP) 144/98 (113) O2 Delivery Room Air Blood Pressure Mean: 113 Progress Progress Note : Time: 21:43 Progress Note Gastritis, pancreatitis, gastric ulcer, duodenal, gallstone biliary colic etc. Plan to get some labs given a GI cocktail and some Pepcid and reevaluate. Low likelihood for infectious. Most likely this represents biliary colic. Departure Impression Primary Impression: Gastritis Qualified Codes: K29.00 - Acute gastritis without bleeding Disposition: 01 HOME, SELF-CARE Condition: Stable Departure-Patient Inst. Decision time for Depature: 22:42 Referrals: KENZIE PETERSON RICHARD A DO (PCP/Family) Primary Care Physician Patient Instructions: Gastritis (DC) Add. Discharge Instructions: You need similar work-up to discover where the source of your symptoms are coming from either a bleeding ulcer or your gallbladder. I want you to call and follow-up with Dr. Peterson in the next couple weeks. Zofran/ondansetron 1 tablet every 6 hours under the tongue as necessary for nausea and/or vomiting. Carafate half an hour prior to meals and at bedtime 4 times a day for the next 2 weeks to protect your stomach and esophagus. Pantoprazole 40 mg a day for the next 4 weeks.. All discharge instructions reviewed with patient and/or family. Voiced understanding. Scripts Pantoprazole Sodium (Pantoprazole Sodium) 40 Mg Tablet.dr 40 MG PO DAILY for 30 Days, #30 TAB 0 Refills Prov: KATI SONG 01/15/21 Ondansetron (Ondansetron Odt) 4 Mg Tab.rapdis 4 MG PO Q6H PRN for NAUSEA/VOMITING, #12 TAB 0 Refills Prov: KATI SONG 01/15/21 Sucralfate (Carafate) 1 Gm Tablet 1 GM PO QIDACHS for 30 Days, #56 TAB 0 Refills Prov: KATI SONG 01/15/21 Copy Copies To 1: KENZIE PETERSON DO KATI SONG Jan 15, 2021 21:44
[2021-01-15] MEDS ORDERED: ANTACID SUSP 30 ML UDC (MYLANTA) PO ONE (21:45)
[2021-01-15] MEDS ORDERED: ONDANSETRON 4 MG/2 ML (SDV) Z0FRAN IVP ONE (21:45)
[2021-01-15] MEDS ORDERED: LIDOCAINE 2% VISCOUS 15 ML UDC PO ONE (21:45)
[2021-01-15 21:55] LABS: BASOPHILS % (AUTO) 0 % (0-10); EOSINOPHILS # (AUTO) 0.3 10^3/uL (0.0-0.3); EOSINOPHILS % (AUTO) 3 % (0-10); HEMATOCRIT 52 % (40-54); HEMOGLOBIN 17.1 g/dL (13.3-17.7); LYMPHOCYTES # (AUTO) 1.1 10^3/uL (1.0-4.0); LYMPHOCYTES % (AUTO) 14 % (12-44); MEAN CORPUSCULAR HEMOGLOBIN 29 pg (25-34); MEAN CORPUSCULAR HGB CONC 33 g/dL (32-36); MEAN CORPUSCULAR VOLUME 88 fL (80-99); MEAN PLATELET VOLUME 9.8 fL (9.0-12.2); MONOCYTES # (AUTO) 0.4 10^3/uL (0.0-1.0); MONOCYTES % (AUTO) 5 % (0-12); NEUTROPHILS % (AUTO) 77 % (42-75); PLATELET COUNT 188 10^3/uL (130-400); WHITE BLOOD COUNT 7.8 10^3/uL (4.3-11.0)
[2021-01-15 22:12] LABS: ALANINE AMINOTRANSFERASE 31 U/L (0-55); ALBUMIN 4.8 GM/DL (3.2-4.5); ALKALINE PHOSPHATASE 88 U/L (40-136); BILIRUBIN,TOTAL 0.8 MG/DL (0.1-1.0); BUN/CREATININE RATIO 11; CALCIUM 10.8 MG/DL (8.5-10.1); CARBON DIOXIDE 30 MMOL/L (21-32); CHLORIDE 104 MMOL/L (98-107); CREATININE SERUM 1.13 MG/DL (0.60-1.30); GFR ESTIMATED > 60; GLUCOSE 120 MG/DL (70-105); LIPASE 16 U/L (8-78); POTASSIUM 4.1 MMOL/L (3.6-5.0); SODIUM 145 MMOL/L (135-145); TOTAL PROTEIN 7.9 GM/DL (6.4-8.2)
[2021-01-15 22:14] LABS: PROTHROMBIN TIME PATIENT 13.4 SEC (12.2-14.7)
[2021-01-15 22:19] LABS: BILIRUBIN,URINE NEGATIVE (NEGATIVE); CLARITY,URINE CLEAR; COLOR,URINE YELLOW; GLUCOSE, URINE (UA) NEGATIVE (NEGATIVE); KETONES,URINE NEGATIVE (NEGATIVE); LEUKOCYTE ESTERASE ,URINE NEGATIVE (NEGATIVE); NITRITE,URINE NEGATIVE (NEGATIVE); PH,URINE 8.5 (5-9); PROTEIN,URINE NEGATIVE (NEGATIVE)
[2021-01-15 22:25] LABS: AMORPHOUS SEDIMENT,UR LARGE AMOR PHOSPHATE /LPF; BACTERIA,URINE NEGATIVE /HPF
[2021-01-15] MEDS ORDERED: ONDA4TAB11 PO (22:45)
[2021-01-15] MEDS ORDERED: SUCR1TAB36 PO (22:45)
[2021-01-15] MEDS ORDERED: PANT40TA52 PO (22:45)
[2021-01-15 23:00] VITALS: BP 141/79
[2021-01-15] MEDS ORDERED: KETOROLAC 30 MG/ML VIAL IVP ONE (23:00)
== END 2021-01-15 23:00 | disposition home or self-care (01) ==
LOC: EDUNIT# 20:47 → ER 20:48
DX: K29.70 Gastritis, unspecified, without bleeding (principal); F17.210 Nicotine dependence, cigarettes, uncomplicated; Z79.52 Long term (current) use of systemic steroids
CPT/HCPCS: 80053; 81000; 83690; 85025; 85610; 85730; 99284; G0480; 36415; 80320

== ENCOUNTER 2021-02-28 20:52 | Emergency (ER) | payer SELFPAY ==
[~2021-02-28] VITALS: Ht 172 cm; Wt 99.7 kg
[~2021-02-28 20:52] MED LIST changes: +ONDA4TAB11 PO; +PANT40TA52 PO; +SUCR1TAB36 PO
--- NOTE | 2021-02-28 20:56 | ED Upper Extremity ---
General Stated Complaint: L SHOULDER PAIN X3 DAYS, WEAK, CAN'T LIFT ARM Source: patient Exam Limitations: no limitations (ANGÉLICA WAGONER APRN) History of Present Illness Date Seen by Provider: Feb 28, 2021 Time Seen by Provider: 21:16 Initial Comments This is a well-appearing 26-year-old male who presents to the ER with complaints of left shoulder pain and weakness x3 days. States that he was lifting a generator when he felt a pop and had immediate pain in his left shoulder. States he has been having increasing pain and weakness since. Has taken ibuprofen which improved some however his symptoms are still pretty severe. Denies numbness, tingling, loss of sensation. (ANGÉLICA WAGONER APRN) Allergies and Home Medications Allergies Coded Allergies: No Known Drug Allergies (Unverified , 02/27/09) Home Medications Amoxicillin 500 Mg Capsule, 1,000 MG PO TID Prescribed by: MARY POP on 07/06/182017 Amoxicillin/Potassium Clav 1 Each Tablet, 1 EACH PO BID Prescribed by: GAIL RIVAS on 06/29/20 1102 Famotidine 20 Mg Tablet, 20 MG PO BID PRN Prescribed by: HARI CRUZ MD on 05/02/19 1735 Gabapentin 300 Mg Capsule, 300 MG PO BID PRN for PAIN-MODERATE (5-7) Prescribed by: MANISHA BRIGHT on 09/30/19 0119 Hydrocodone Bit/Acetaminophen 1 Tab Tab, 1-2 EACH PO Q6H PRN for PAIN-MODERATE Prescribed by: MANISHA BRIGHT on 09/30/19 0119 Ondansetron 4 Mg Tab.rapdis, 4 MG SL Q4H PRN for NAUSEA/VOMITING Prescribed by: MANISHA BRIGHT on 12/23/19 0836 Ondansetron 4 Mg Tab.rapdis, 4 MG PO Q6H PRN for NAUSEA/VOMITING Prescribed by: KATI SONG on 01/15/21 224 Pantoprazole Sodium 40 Mg Tablet.dr, 40 MG PO DAILY Prescribed by: KATI SONG on 01/15/21 2245 Prednisone 20 Mg Tab, 40 MG PO DAILY Prescribed by: HARI CRUZ MD on 05/02/19 1735 Prednisone 20 Mg Tab, 40 MG PO DAILY Prescribed by: MANISHA BRIGHT on 09/30/19 0119 Sucralfate 1 Gm Tablet, 1 GM PO QIDACHS Prescribed by: KATI SONG on 01/15/21 2245 Sulfamethoxazole/Trimethoprim 1 Each Tablet, 1 EACH PO BID Prescribed by: MARCO A MCCOLLUM on 02/16/17 2240 Sulfamethoxazole/Trimethoprim 1 Each Tablet, 1 EACH PO BID Prescribed by: DEANN STEELE on 04/06/19 0002 Triamcinolone Acet 15 Gm Cr, 80 GM TP TID PRN for RASH Prescribed by: HARI CRUZ MD on 05/02/19 1735 Patient Home Medication List Home Medication List Reviewed: Yes (ANGÉLICA WAGONER APRN) Review of Systems Constitutional: no symptoms reported Respiratory: no symptoms reported Cardiovascular: no symptoms reported Gastrointestinal: no symptoms reported Musculoskeletal: see HPI Skin: no symptoms reported (ANGÉLICA WAGONER APRN) Past Syzzghi-Snkygx-Qdohfu Hx Patient Social History Alcohol Beverage of Choice: Beer, Rum, Vodka Drug of Choice: POT Type Used: Cigarettes 2nd Hand Smoke Exposure: Yes Recent Hopitalizations: No (ANGÉLICA WAGONER APRN) Immunizations Up To Date Tetanus Booster (TDap): Unknown (ANGÉLICA WAGONER APRN) Seasonal Allergies Seasonal Allergies: No (ANGÉLICA WAGONER APRN) Past Medical History Surgeries: Yes Ear Surgery Respiratory: No Cardiac: No Neurological: No Reproductive Disorders: No Genitourinary: No Gastrointestinal: No Musculoskeletal: Yes (chronic left ankle pain 5 years) Arthritis Endocrine: Yes (history of thyroid nodule) HEENT: No Cancer: No Psychosocial: No Integumentary: No Blood Disorders: No (ANGÉLICA WAGONER APRN) Family Medical History Cancer (ANGÉLICA WAGONER APRN) Physical Exam Vital Signs Vital Signs - First Documented 02/28/21 21:04 Temp 37.4 Pulse 117 Resp 18 B/P (MAP) 149/91 (110) Pulse Ox 98 O2 Delivery Room Air (MANISHA SANTOS MD) Vital Signs Capillary Refill : (ANGÉLICA WAGONER APRN) Height, Weight, BMI Height: 5'8.00" Weight: 220lbs. oz. 99.131930jh; 33.00 BMI Method:Stated General Appearance: WD/WN, no apparent distress HEENT: PERRL/EOMI, normal ENT inspection Neck: non-tender, full range of motion, supple, normal inspection Cardiovascular: regular rate, rhythm, no murmur Respiratory: lungs clear, normal breath sounds Gastrointestinal: normal bowel sounds, non tender, soft Back: normal inspection, no vertebral tenderness Shoulder: normal inspection; No asymmetry; limited ROM, pain (Positive internal rotation lag test and external rotation resistance test.), soft tissue tenderness (anterior and posterior shoulder. ) Elbow/Forearm: normal inspection, non-tender, no evidence of injury, normal ROM Wrist: Yes normal inspection, Yes non-tender, Yes no evidence of injury, Yes normal ROM Hand: normal inspection, non-tender, no evidence of injury, normal ROM Neurologic/Psychiatric: no motor/sensory deficits, alert, normal mood/affect, oriented x 3, other (neurovascular intact distal to injury ) Skin: normal color, warm/dry (ANGÉLICA WAGONER APRN) Progress/Results/Core Measures Diagnostic Imaging Diagonstic Imaging: Xray Plain Films/CT/US/NM/MRI: other Comments [facility], [place] NAME: SARA CASTELLANOS [facility] REC#: [id number] PT STATUS: REG ER : 1995 PHYSICIAN: ANGÉLICA WAGONER APRN ADMIT DATE: 02/28/21/ER Draft Date of Exam:02/28/21 SHOULDER, LEFT, 3 VIEWS EXAMINATION: Left shoulder 2 or more views. HISTORY: Left shoulder pain. COMPARISON: None available. FINDINGS: The alignment is normal. No fracture is seen. The acromioclavicular and glenohumeral joint spaces are normal. IMPRESSION: No fracture. Dictated on workstation # [id number] Dict: 02/28/212134 Trans: 02/28/212136 [facility] [id number] Interpreted by: MANUEL GONZALEZ MD Electronically signed by: (ANGÉLICA WAGONER APRN) Departure Impression Primary Impression: Injury of left rotator cuff Disposition: 01 HOME, SELF-CARE Condition: Improved Departure-Patient Inst. Decision time for Depature: 21:44 (ANGÉLICA WAGONER APRN) Referrals: [facility] (PCP/Family) Primary Care Physician Patient Instructions: ROTATOR CUFF TEAR Add. Discharge Instructions: Plan: 1. Discharge home. 2. Follow up with your provider next week. Alternate periods of rest and exercises as discussed and outlined in handout. 3. Use Ibuprofen 600mg every 6 hours as needed for pain. 4. Apply ice 20 minutes at a time 4-6x per day. 5. Return to ER for any new, worsening, or concerning symptoms. Attending physician note: I was physically present as attending physician in the emergency department during the care of this patient, but I did not participate directly in the care of this patient. (MANISHA SANTOS MD) ANGÉLICA WAGONER APRN Feb 28, 2021 20:56 MANISHA SANTOS MD Mar 02, 2021 14:20
[2021-02-28 21:04] VITALS: BP 149/91
--- NOTE | 2021-02-28 21:37 | Diagnostic Imaging Report ---
EXAMINATION: Left shoulder 2 or more views. HISTORY: Left shoulder pain. COMPARISON: None available. FINDINGS: The alignment is normal. No fracture is seen. The acromioclavicular and glenohumeral joint spaces are normal. IMPRESSION: No fracture. Dictated by: Dictated on workstation # [id number]
[2021-02-28] MEDS ORDERED: KETOROLAC 60 MG/2 ML VIAL IM ONE (21:45)
[2021-02-28] MEDS ORDERED: ORPHENADRINE 60 MG/2 ML (NORFLEX) AMP (ED ONLY) IM ONE (21:45)
== END 2021-02-28 22:01 | disposition home or self-care (01) ==
LOC: EDUNIT# 20:52 → ER 20:54
DX: S46.002A Unspecified injury of muscle(s) and tendon(s) of the rotator cuff of left shoulder, initial encounter (principal); Z77.22 Contact with and (suspected) exposure to environmental tobacco smoke (acute) (chronic); Z79.52 Long term (current) use of systemic steroids; X50.0XXA Overexertion from strenuous movement or load, initial encounter
CPT/HCPCS: 73030

== ENCOUNTER 2021-03-29 11:32 | Emergency (ER) | payer SELFPAY ==
[~2021-03-29] VITALS: Ht 177.8 cm; Wt 100.0 kg
[2021-03-29] MEDS ORDERED: fentaNYL INJ 100 MCG/2 ML AMP IVP ONE ×2 (12:00→13:30)
[2021-03-29] MEDS ORDERED: KETOROLAC 30 MG/ML VIAL IVP ONE (12:00)
[2021-03-29] MEDS ORDERED: NS IV 1000 ML 1,000 ML IV SCH (12:00)
--- NOTE | 2021-03-29 12:00 | ED Back Pain ---
General Chief Complaint: Back Problems Stated Complaint: L FLANK PAIN Nursing Triage Note: Pt arrival to ER via [facility] with complaint of left flank pain since last night. Pt states that its on the left side of lower back. Pt rates pain at a 10/10 and states that it feels like his last kidney stone. Source of Information: Patient Exam Limitations: No Limitations History of Present Illness Date Seen by Provider: Mar 29, 2021 Time Seen by Provider: 11:50 Initial Comments To ER with left flank pain sudden onset that awakened him from sleep this morning associated with nausea and vomiting. No fevers or chills. Location: Other (left flank) Timing/Duration: 12-24 Hours Severity: Moderate, Severe Associated Symptoms: denies symptoms Allergies and Home Medications Allergies Coded Allergies: No Known Drug Allergies (Unverified , 02/27/09) Home Medications Amoxicillin 500 Mg Capsule, 1,000 MG PO TID Prescribed by: MARY POP on 07/06/182017 Amoxicillin/Potassium Clav 1 Each Tablet, 1 EACH PO BID Prescribed by: GAIL RIVAS on 06/29/20 1102 Famotidine 20 Mg Tablet, 20 MG PO BID PRN Prescribed by: HARI CRUZ MD on 05/02/19 1735 Gabapentin 300 Mg Capsule, 300 MG PO BID PRN for PAIN-MODERATE (5-7) Prescribed by: MANISHA BRIGHT on 09/30/19 0119 Hydrocodone Bit/Acetaminophen 1 Tab Tab, 1-2 EACH PO Q6H PRN for PAIN-MODERATE Prescribed by: MANISHA BRIGHT on 09/30/19 0119 Hydrocodone/Acetaminophen 1 Each Tablet, 1 TAB PO Q4H PRN for PAIN-MODERATE (5- 7) Prescribed by: GAIL RIVAS on 03/29/21 1315 Ketorolac Tromethamine 10 Mg Tablet, 10 MG PO TID Prescribed by: GAIL RIVAS on 03/29/21 1314 Ondansetron 4 Mg Tab.rapdis, 4 MG SL Q4H PRN for NAUSEA/VOMITING Prescribed by: MANISHA BRIGHT on 12/23/19 0836 Ondansetron 4 Mg Tab.rapdis, 4 MG PO Q6H PRN for NAUSEA/VOMITING Prescribed by: KATI SONG on 01/15/21 2245 Ondansetron 8 Mg Tab.rapdis, 8 MG PO Q6H PRN for NAUSEA/VOMITING Prescribed by: GAIL RIVAS on 03/29/21 1314 Pantoprazole Sodium 40 Mg Tablet.dr, 40 MG PO DAILY Prescribed by: KATI SONG on 01/15/212244 Prednisone 20 Mg Tab, 40 MG PO DAILY Prescribed by: HARI CRUZ MD on 05/02/191734 Prednisone 20 Mg Tab, 40 MG PO DAILY Prescribed by: MANISHA BRIGHT on 09/30/19 0119 Sucralfate 1 Gm Tablet, 1 GM PO QIDACHS Prescribed by: KATI SONG on 01/15/212244 Sulfamethoxazole/Trimethoprim 1 Each Tablet, 1 EACH PO BID Prescribed by: MARCO A MCCOLLUM on 02/16/17 224 Sulfamethoxazole/Trimethoprim 1 Each Tablet, 1 EACH PO BID Prescribed by: DEANN STEELE on 04/06/19 0002 Sulfamethoxazole/Trimethoprim 1 Each Tablet, 1 EACH PO BID Prescribed by: GAIL RIVAS on 03/29/21 131 Triamcinolone Acet 15 Gm Cr, 80 GM TP TID PRN for RASH Prescribed by: HARI CRUZ MD on 05/02/191734 Patient Home Medication List Home Medication List Reviewed: Yes Review of Systems Constitutional: see HPI; No chills, No fever EENTM: see HPI Respiratory: no symptoms reported Cardiovascular: no symptoms reported Genitourinary: no symptoms reported Musculoskeletal: no symptoms reported Skin: no symptoms reported Psychiatric/Neurological: No Symptoms Reported Past Jhawdaw-Makjsc-Gemelc Hx Patient Social History Tobacco Use?: Yes Tobacco type used: Cigarettes Use of E-Cig and/or Vaping dev: No Substance use?: No Alcohol Use?: No Pt feels they are or have been: No Immunizations Up To Date Tetanus Booster (TDap): Unknown Influenza Vaccine Up-to-Date: No; Not Current Seasonal Allergies Seasonal Allergies: No Past Medical History Surgeries: Yes Ear Surgery Respiratory: No Cardiac: No Neurological: No Reproductive Disorders: No Genitourinary: No Gastrointestinal: No Musculoskeletal: Yes (chronic left ankle pain 5 years) Arthritis Endocrine: Yes (history of thyroid nodule) HEENT: No Cancer: No Psychosocial: No Integumentary: No Blood Disorders: No Family Medical History Cancer Physical Exam Vital Signs Vital Signs - First Documented 03/29/21 11:37 Temp 35.1 Pulse 84 Resp 20 B/P (MAP) 136/95 (109) Pulse Ox 100 O2 Delivery Room Air Capillary Refill : Less Than 3 Seconds Height, Weight, BMI Height: 5'8.00" Weight: 220lbs. oz. 99.875192qj; 31.00 BMI Method:Stated General Appearance: WD/WN, Moderate Distress, Obese Neck: Full Range of Motion, Normal Inspection Respiratory: Normal Breath Sounds, No Accessory Muscle Use, No Respiratory Distress Gastrointestinal: Non Tender, Soft Extremity: Normal Capillary Refill, Normal Inspection Neurologic/Psychiatric: Alert, Oriented x3 Skin: Normal Color, Warm/Dry Progress/Results/Core Measures Results/Orders Lab Results Laboratory Tests Test 03/29/21 11:58 03/29/21 12:00 Range/Units White Blood Count 8.7 4.3-11.0 10^3/uL Red Blood Count 5.45 4.30-5.52 10^6/uL Hemoglobin 15.9 13.3-17.7 g/dL Hematocrit 47 40-54 % Mean Corpuscular Volume 85 80-99 fL Mean Corpuscular Hemoglobin 29 25-34 pg Mean Corpuscular Hemoglobin Concent 34 32-36 g/dL Red Cell Distribution Width 13.2 10.0-14.5 % Platelet Count 185 130-400 10^3/uL Mean Platelet Volume 10.5 9.0-12.2 fL Immature Granulocyte % (Auto) 0 % Neutrophils (%) (Auto) 68 42-75 % Lymphocytes (%) (Auto) 20 12-44 % Monocytes (%) (Auto) 6 0-12 % Eosinophils (%) (Auto) 5 0-10 % Basophils (%) (Auto) 1 0-10 % Neutrophils # (Auto) 5.9 1.8-7.8 10^3/uL Lymphocytes # (Auto) 1.8 1.0-4.0 10^3/uL Monocytes # (Auto) 0.5 0.0-1.0 10^3/uL Eosinophils # (Auto) 0.5 H 0.0-0.3 10^3/uL Basophils # (Auto) 0.0 0.0-0.1 10^3/uL Immature Granulocyte # (Auto) 0.0 0.0-0.1 10^3/uL Sodium Level 146 H 135-145 MMOL/L Potassium Level 4.1 3.6-5.0 MMOL/L Chloride Level 110 H 98-107 MMOL/L Carbon Dioxide Level 23 21-32 MMOL/L Anion Gap 13 5-14 MMOL/L Blood Urea Nitrogen 12 7-18 MG/DL Creatinine 1.11 0.60-1.30 MG/DL Estimat Glomerular Filtration Rate > 60 BUN/Creatinine Ratio 11 Glucose Level 108 H 70-105 MG/DL Calcium Level 10.1 8.5-10.1 MG/DL Urine Color YELLOW Urine Clarity CLEAR Urine pH 8.0 5-9 Urine Specific [place] 1.015 L 1.016-1.022 Urine Protein TRACE H NEGATIVE Urine Glucose (UA) NEGATIVE NEGATIVE Urine Ketones TRACE H NEGATIVE Urine Nitrite NEGATIVE NEGATIVE Urine Bilirubin NEGATIVE NEGATIVE Urine Urobilinogen 1.0 < = 1.0 MG/DL Urine Leukocyte Esterase NEGATIVE NEGATIVE Urine RBC (Auto) 3+ H NEGATIVE Urine RBC 5-10 H /HPF Urine WBC NONE /HPF Urine Squamous Epithelial Cells NONE /HPF Urine Crystals NONE /LPF Urine Bacteria NEGATIVE /HPF Urine Casts NONE /LPF Urine Mucus NEGATIVE /LPF Urine Culture Indicated NO My Orders Orders - GAIL RIVAS APRN Cbc With Automated Diff (03/29/21 11:50) Basic Metabolic Panel (03/29/21 11:50) Ua Culture If Indicated (03/29/21 11:50) Abdomen/Kub 1view (03/29/21 11:50) Ct Abd/Pelvis Wo(Kidney Stone) (03/29/21 11:50) Ed Iv/Invasive Line Start (03/29/21 11:50) Ketorolac Injection (Toradol Injection) (03/29/21 12:00) Fentanyl Inj (Sublimaze Injection) (03/29/21 12:00) Ns Iv 1000 Ml (Sodium Chloride 0.9%) (03/29/21 12:00) Fentanyl Inj (Sublimaze Injection) (03/29/21 13:30) Medications Given in ED Current Medications Medications Dose Ordered Sig/Jeffrey Route Start Time Stop Time Status Last Admin Dose Admin Fentanyl Citrate 50 mcg ONCE ONCE IVP 03/29/21 12:00 03/29/21 12:01 DC 03/29/21 12:07 50 MCG Ketorolac Tromethamine 15 mg ONCE ONCE IVP 03/29/21 12:00 03/29/21 12:01 DC 03/29/21 12:07 15 MG Vital Signs/I&O 03/29/21 11:37 Temp 35.1 Pulse 84 Resp 20 B/P (MAP) 136/95 (109) Pulse Ox 100 O2 Delivery Room Air Blood Pressure Mean: 109 Diagnostic Imaging Diagonstic Imaging: Xray Comments NAME: SARA CASTELLANOS MED REC#: [id number] PT STATUS: REG ER : 1995 PHYSICIAN: GAIL RIVAS APRN ADMIT DATE: 03/29/21/ER Draft Date of Exam:03/29/21 CT ABD/PELVIS WO(KIDNEY STONE) PROCEDURE: CT urinary tract, rule out kidney stone. TECHNIQUE: Multiple contiguous axial images were obtained through the abdomen and pelvis without the use of intravenous contrast. Auto Exposure Controls were utilized during the CT exam to meet ALARA standards for radiation dose reduction. INDICATION: Left flank pain. COMPARISON: Comparison is made with prior CT from 04/17/2020. FINDINGS: The liver and gallbladder are unremarkable. There is no biliary ductal dilatation. Pancreas and spleen are unremarkable. No adrenal mass is detected. Right kidney is unremarkable. Left kidney does appear to be enlarged. There is mild left hydroureteronephrosis and mild periureteral inflammatory stranding. This appears to be caused by an approximately 2 mm calculus at the left UVJ. No other urinary tract calculi are seen. Aorta is nonaneurysmal. Bowel loops are normal in caliber. There is no free fluid or fluid collection. Prostate is unremarkable. IMPRESSION: 2 mm left UVJ calculus producing mild hydroureteronephrosis. Dictated on workstation # [id number] Dict: 03/29/21 1320 Trans: 03/29/21 1324 [id number] Interpreted by: JASPER BOOKER MD Electronically signed by: Departure Communication (Admissions) NAME: SARA CASTELLANOS MED REC#: [id number] PT STATUS: REG ER : 1995 PHYSICIAN: GAIL RIVAS APRN ADMIT DATE: 03/29/21/ER Draft Date of Exam:03/29/21 CT ABD/PELVIS WO(KIDNEY STONE) PROCEDURE: CT urinary tract, rule out kidney stone. TECHNIQUE: Multiple contiguous axial images were obtained through the abdomen and pelvis without the use of intravenous contrast. Auto Exposure Controls were utilized during the CT exam to meet ALARA standards for radiation dose reduction. INDICATION: Left flank pain. COMPARISON: Comparison is made with prior CT from 04/17/2020. FINDINGS: The liver and gallbladder are unremarkable. There is no biliary ductal dilatation. Pancreas and spleen are unremarkable. No adrenal mass is detected. Right kidney is unremarkable. Left kidney does appear to be enlarged. There is mild left hydroureteronephrosis and mild periureteral inflammatory stranding. This appears to be caused by an approximately 2 mm calculus at the left UVJ. No other urinary tract calculi are seen. Aorta is nonaneurysmal. Bowel loops are normal in caliber. There is no free fluid or fluid collection. Prostate is unremarkable. IMPRESSION: 2 mm left UVJ calculus producing mild hydroureteronephrosis. Dictated on workstation # [id number] Dict: 03/29/21 1320 Trans: 03/29/21 1324 [id number] Interpreted by: JASPER BOOKER MD Electronically signed by: Impression Primary Impression: Ureteral calculus, left Disposition: 01 HOME, SELF-CARE Condition: Improved Departure-Patient Inst. Decision time for Depature: 13:00 Referrals: [facility] (PCP/Family) Primary Care Physician YAZMIN HOLT MD Patient Instructions: Kidney Stones in Adults Add. Discharge Instructions: 1. Drink plenty of fluids. Nausea medication and pain medication as directed. Return to ER for any concerns. All discharge instructions reviewed with patient and/or family. Voiced understanding. Scripts Hydrocodone/Acetaminophen (Hydrocodone-Acetamin 5-325 mg) 1 Each Tablet 1 TAB PO Q4H PRN for PAIN-MODERATE (5-7), #20 TAB Prov: GAIL RIVAS APRN 03/29/21 Ketorolac Tromethamine (Ketorolac Tromethamine) 10 Mg Tablet 10 MG PO TID, #21 TAB Prov: GAIL RIVAS APRN 03/29/21 Ondansetron (Ondansetron Odt) 8 Mg Tab.rapdis 8 MG PO Q6H PRN for NAUSEA/VOMITING, #10 TAB Prov: GAIL RIVAS APRN 03/29/21 Sulfamethoxazole/Trimethoprim (Bactrim Ds Tablet) 1 Each Tablet 1 EACH PO BID, #10 TAB Prov: GAIL RIVAS APRN 03/29/21 GAIL RIVAS APRN Mar 29, 2021 12:00
[2021-03-29 12:06] LABS: BASOPHILS % (AUTO) 1 % (0-10); EOSINOPHILS # (AUTO) 0.5 10^3/uL (0.0-0.3); EOSINOPHILS % (AUTO) 5 % (0-10); HEMATOCRIT 47 % (40-54); HEMOGLOBIN 15.9 g/dL (13.3-17.7); LYMPHOCYTES # (AUTO) 1.8 10^3/uL (1.0-4.0); LYMPHOCYTES % (AUTO) 20 % (12-44); MEAN CORPUSCULAR HEMOGLOBIN 29 pg (25-34); MEAN CORPUSCULAR HGB CONC 34 g/dL (32-36); MEAN CORPUSCULAR VOLUME 85 fL (80-99); MEAN PLATELET VOLUME 10.5 fL (9.0-12.2); MONOCYTES # (AUTO) 0.5 10^3/uL (0.0-1.0); MONOCYTES % (AUTO) 6 % (0-12); NEUTROPHILS # (AUTO) 5.9 10^3/uL (1.8-7.8); NEUTROPHILS % (AUTO) 68 % (42-75); PLATELET COUNT 185 10^3/uL (130-400); WHITE BLOOD COUNT 8.7 10^3/uL (4.3-11.0)
[2021-03-29 12:09] LABS: BILIRUBIN,URINE NEGATIVE (NEGATIVE); CLARITY,URINE CLEAR; COLOR,URINE YELLOW; GLUCOSE, URINE (UA) NEGATIVE (NEGATIVE); KETONES,URINE TRACE (NEGATIVE); LEUKOCYTE ESTERASE ,URINE NEGATIVE (NEGATIVE); NITRITE,URINE NEGATIVE (NEGATIVE); PROTEIN,URINE TRACE (NEGATIVE)
[2021-03-29 12:17] LABS: BACTERIA,URINE NEGATIVE /HPF
[2021-03-29 12:19] LABS: CHLORIDE 110 MMOL/L (98-107); POTASSIUM 4.1 MMOL/L (3.6-5.0); SODIUM 146 MMOL/L (135-145)
[2021-03-29 12:20] LABS: CALCIUM 10.1 MG/DL (8.5-10.1); GLUCOSE 108 MG/DL (70-105)
[2021-03-29 12:22] LABS: CARBON DIOXIDE 23 MMOL/L (21-32)
[2021-03-29 12:24] LABS: CREATININE SERUM 1.11 MG/DL (0.60-1.30); GFR ESTIMATED > 60
[2021-03-29 12:25] LABS: BUN/CREATININE RATIO 11
[2021-03-29] MEDS ORDERED: KETO10TA PO (13:14)
[2021-03-29] MEDS ORDERED: ACHD5005 PO (13:14)
[2021-03-29] MEDS ORDERED: ONDA8TAB13 PO (13:14)
[2021-03-29] MEDS ORDERED: SULF1TAB35 PO (13:14)
--- NOTE | 2021-03-29 13:24 | Diagnostic Imaging Report ---
PROCEDURE: CT urinary tract, rule out kidney stone. TECHNIQUE: Multiple contiguous axial images were obtained through the abdomen and pelvis without the use of intravenous contrast. Auto Exposure Controls were utilized during the CT exam to meet ALARA standards for radiation dose reduction. INDICATION: Left flank pain. COMPARISON: Comparison is made with prior CT from 04/17/2020. FINDINGS: The liver and gallbladder are unremarkable. There is no biliary ductal dilatation. Pancreas and spleen are unremarkable. No adrenal mass is detected. Right kidney is unremarkable. Left kidney does appear to be enlarged. There is mild left hydroureteronephrosis and mild periureteral inflammatory stranding. This appears to be caused by an approximately 2 mm calculus at the left UVJ. No other urinary tract calculi are seen. Aorta is nonaneurysmal. Bowel loops are normal in caliber. There is no free fluid or fluid collection. Prostate is unremarkable. IMPRESSION: 2 mm left UVJ calculus producing mild hydroureteronephrosis. Dictated by: Dictated on workstation # [id number]
[2021-03-29 13:35] VITALS: BP 151/108
--- NOTE | 2021-03-29 13:36 | Diagnostic Imaging Report ---
INDICATION: Left flank pain. TIME OF EXAM: 1:21 p.m. FINDINGS: Bowel gas pattern is unremarkable. There is no free air. There is a small calcific density in the medial left paramidline location of the pelvis, suggestive of known UVJ calculus seen on CT earlier the same day. No other urinary tract calculi are identified. IMPRESSION: Small distal left ureteric calculus. The study is otherwise unremarkable. Dictated by: Dictated on workstation # [id number]
== END 2021-03-29 13:35 | disposition home or self-care (01) ==
LOC: EDUNIT# 11:32 → ER 11:35
DX: N13.2 Hydronephrosis with renal and ureteral calculous obstruction (principal); E66.9 Obesity, unspecified; Z68.31 Body mass index [BMI] 31.0-31.9, adult; Z79.52 Long term (current) use of systemic steroids
CPT/HCPCS: 36415; 74018; 74176; 80048; 81000; 85025

== ENCOUNTER 2021-09-29 00:43 | Emergency (ER) | payer SELFPAY ==
[~2021-09-29 00:43] MED LIST changes: +KETO10TA PO; +ONDA8TAB13 PO; -SULF1TAB35 PO; +SULF1TAB38 PO
[2021-09-29] MEDS ORDERED: AMOXICILLIN 500 MG (POLYMOX) CAP PO STA (02:31)
[2021-09-29] MEDS ORDERED: AMOX500C2 PO (02:41)
--- NOTE | 2021-09-29 02:41 | ED Cough/URI ---
General Chief Complaint: COVID19 Suspect/Confirmed Stated Complaint: CONGESTION,LEFT EAR PAIN,DIZZY,BODY ACHES Nursing Triage Note: TO ED VIA POV AND AMBULATORY TO ROOM 10 NEGATIVE PRESSURE ROOM WITH C/O LEFT EARACHE, DIZZINESS, ACHY X3 DAYS. Source: patient Exam Limitations: no limitations History of Present Illness Date Seen by Provider: Sep 29, 2021 Time Seen by Provider: 01:39 Initial Comments Here with report of left earache, dizziness, body aches and feeling upper respiratory symptoms including cough for the last 3 to 4 days. Here with his son who has similar symptoms. No contact with Covid currently known. Denies nausea, vomiting or diarrhea Timing/Duration: getting worse, other (3 days) Severity/Quality: mild, dry cough Associated Symptoms: cough, earache, lightheadedness, muscle aches, nasal congestion Allergies and Home Medications Allergies Coded Allergies: No Known Drug Allergies (Unverified , 02/27/09) Patient Home Medication List Home Medication List Reviewed: Yes Amoxicillin (Amoxicillin) 500 Mg Capsule, 1,000 MG PO TID Prescribed by: MARY POP on 07/06/182017 Amoxicillin/Potassium Clav (Augmentin 875-125 Tablet) 1 Each Tablet, 1 EACH PO BID Prescribed by: GAIL RIVAS on 06/29/20 110 Famotidine (Pepcid) 20 Mg Tablet, 20 MG PO BID PRN Prescribed by: HARI CRUZ MD on 05/02/19 173 Gabapentin (Gabapentin) 300 Mg Capsule, 300 MG PO BID PRN for PAIN-MODERATE (5- 7) Prescribed by: MANISHA BRIGHT on 09/30/19 011 Hydrocodone Bit/Acetaminophen (Lortab 5 Mg Tablet) 1 Tab Tab, 1-2 EACH PO Q6H PRN for PAIN-MODERATE Prescribed by: MANISHA BRIGHT on 09/30/19 011 Hydrocodone/Acetaminophen (Hydrocodone-Acetamin 5-325 mg) 1 Each Tablet, 1 TAB PO Q4H PRN for PAIN-MODERATE (5-7) Prescribed by: GAIL RIVAS on 03/29/21 1315 Ketorolac Tromethamine (Ketorolac Tromethamine) 10 Mg Tablet, 10 MG PO TID Prescribed by: GAIL RIVAS on 03/29/21 1314 Ondansetron (Ondansetron Odt) 4 Mg Tab.rapdis, 4 MG SL Q4H PRN for NAUSEA/VOMITING Prescribed by: MANISHA BRIGHT on 12/23/19 0836 Ondansetron (Ondansetron Odt) 4 Mg Tab.rapdis, 4 MG PO Q6H PRN for NAUSEA/VOMITING Prescribed by: KATI SONG on 01/15/212244 Ondansetron (Ondansetron Odt) 8 Mg Tab.rapdis, 8 MG PO Q6H PRN for NAUSEA/VOMITING Prescribed by: GAIL RIVAS on 03/29/21 1314 Pantoprazole Sodium (Pantoprazole Sodium) 40 Mg Tablet.dr, 40 MG PO DAILY Prescribed by: KATI SONG on 01/15/212244 Prednisone (Prednisone) 20 Mg Tab, 40 MG PO DAILY Prescribed by: HARI CRUZ MD on 05/02/19 173 Prednisone (Prednisone) 20 Mg Tab, 40 MG PO DAILY Prescribed by: MANISHA BRIGHT on 09/30/19 0119 Sucralfate (Carafate) 1 Gm Tablet, 1 GM PO QIDACHS Prescribed by: KATI SONG on 01/15/21 224 Sulfamethoxazole/Trimethoprim (Bactrim Ds Tablet) 1 Each Tablet, 1 EACH PO BID Prescribed by: MARCO A MCCOLLUM on 02/16/17 2240 Sulfamethoxazole/Trimethoprim (Bactrim Ds Tablet) 1 Each Tablet, 1 EACH PO BID Prescribed by: DEANN STEELE on 04/06/19 0002 Sulfamethoxazole/Trimethoprim (Bactrim Ds Tablet) 1 Each Tablet, 1 EACH PO BID Prescribed by: GAIL RIVAS on 03/29/21 1314 Triamcinolone Acet (Triamcinolone Acetonide 0.1% Cream) 15 Gm Cr, 80 GM TP TID PRN for RASH Prescribed by: HARI CRUZ MD on 05/02/19 1735 Review of Systems Review of Systems Constitutional: see HPI; No chills, No fever EENTM: ear pain, nose congestion Respiratory: cough; No short of breath Cardiovascular: no symptoms reported Gastrointestinal: No diarrhea, No nausea, No vomiting Genitourinary: no symptoms reported Musculoskeletal: No joint pain; muscle pain Skin: no symptoms reported Psychiatric/Neurological: No Symptoms Reported Past Allptoo-Vugsqb-Ruogrp Hx Patient Social History Tobacco Use?: Yes Tobacco type used: Cigarettes Smoking Status: Current Everyday Smoker Smokeless Tobacco Frequency: Current Everyday User Substance use?: No Alcohol Use?: No Immunizations Up To Date Tetanus Booster (TDap): Unknown Influenza Vaccine Up-to-Date: No; Not Current First/Initial COVID19 Vaccinat: Never Second COVID19 Vaccination Yung: Never Third COVID19 Vaccination Date: Never Seasonal Allergies Seasonal Allergies: No Past Medical History Surgeries: Yes Ear Surgery Respiratory: No Cardiac: No Neurological: No Reproductive Disorders: No Genitourinary: No Gastrointestinal: No Musculoskeletal: Yes (chronic left ankle pain 5 years) Arthritis Endocrine: Yes (history of thyroid nodule) HEENT: No Cancer: No Psychosocial: No Integumentary: No Blood Disorders: No Family Medical History Reviewed Nursing Family Hx Cancer Physical Exam Vital Signs - First Documented 09/29/21 01:05 Temp 36.1 Pulse 112 Resp 16 B/P (MAP) 150/80 (103) Pulse Ox 99 O2 Delivery Room Air Capillary Refill : Less Than 3 Seconds Height: 5'8.00" Weight: 220lbs. oz. 99.623845jy; 31.00 BMI Method:Stated General Appearance: WD/WN, no apparent distress HEENT: PERRL/EOMI, pharynx normal, TM abnormal (L) Neck: full range of motion, supple, normal inspection; No lymphadenopathy (R), No lymphadenopathy (L) Respiratory: lungs clear, normal breath sounds Cardiovascular: regular rate, rhythm, no murmur Gastrointestinal: non tender, soft Neurologic/Psychiatric: alert, oriented x 3 Skin: normal color, warm/dry Progress/Results/Core Measures Suspected Sepsis SIRS Temperature: Pulse: 112 Respiratory Rate: 16 Blood Pressure 150 /80 Mean: 103 Results/Orders Lab Results Laboratory Tests Test 09/29/21 01:10 Range/Units Influenza Type A (RT-PCR) Not Detected Not Detecte Influenza Type B (RT-PCR) Not Detected Not Detecte SARS-CoV-2 RNA (RT-PCR) Not Detected Not Detecte My Orders Orders - MARY POP MD Influenza A And B By Pcr (09/29/21 01:14) Covid 19 Inhouse Test (09/29/21 01:14) Amoxicillin Capsule (Polymox Capsule) (09/29/21 02:31) Vital Signs/I&O 09/29/21 01:05 Temp 36.1 Pulse 112 Resp 16 B/P (MAP) 150/80 (103) Pulse Ox 99 O2 Delivery Room Air Capillary Refill : Less Than 3 Seconds Blood Pressure Mean: 103 Progress Note : Progress Note Seen and evaluated. Covid and influenza screening done and is negative. Concerns for left otitis media. We will treat with amoxicillin. 1000 mg p.o. now and then prescription given. Discharged home with return precautions. Patient verbalized understanding of instructions and agreement with plan. Departure Impression Primary Impression: Left middle ear infection Qualified Codes: H66.002 - Acute suppurative otitis media without spontaneous rupture of ear drum, left ear Additional Impression: Upper respiratory infection, viral Disposition: HOME, SELF-CARE Condition: Stable Departure-Patient Inst. Decision time for Depature: 02:40 Referrals: [facility] (PCP/Family) Primary Care Physician Patient Instructions: Upper Respiratory Infection ED, Ear Infections (Otitis Media) in Adults (DC) Add. Discharge Instructions: All discharge instructions reviewed with patient and/or family. Voiced understanding. You may take Tylenol/acetaminophen 1000 mg every 8 hours as needed for fever or pain. You may take ibuprofen 600 mg every 8 hours as needed for fever or pain. You may use Afrin nasal spray or the generic, 12 hour relief, 2 sprays to each nostril twice daily for 3 days only and then stop. Do not use more than 3 days. Follow-up with your Dr. in a few days for recheck. Drink plenty of fluids. Take other medications as directed. Return for worse pain, fever, vomiting, weakness, breathing problems or other concerns as needed. Scripts Amoxicillin (Amoxicillin) 500 Mg Capsule 500 MG PO TID, #30 CAP 0 Refills Prov: MARY POP MD 09/29/21 MARY POP MD Sep 29, 2021 02:41
[2021-09-29 03:09] VITALS: BP 145/78
== END 2021-09-29 03:10 | disposition home or self-care (01) ==
LOC: EDUNIT# 00:43 → ER 00:49
DX: H66.92 Otitis media, unspecified, left ear (principal); J06.9 Acute upper respiratory infection, unspecified; F17.210 Nicotine dependence, cigarettes, uncomplicated; Z20.822 Contact with and (suspected) exposure to COVID-19
CPT/HCPCS: 87636

== ENCOUNTER 2021-11-19 19:18 | Emergency (ER) | payer SELFPAY ==
[~2021-11-19] VITALS: Ht 175 cm; Wt 99.0 kg
[2021-11-19] MEDS ORDERED: LACTATED RINGERS 1,000 ML IV ONE (19:28)
[2021-11-19] MEDS ORDERED: BENZTROPINE 2 MG/2 ML INJ (COGENTIN) AMP ONE (19:28)
[2021-11-19] MEDS ORDERED: LORazepam INJ 2 MG/ML (ATIVAN) VIAL ONE (19:28)
--- NOTE | 2021-11-19 19:47 | ED General ---
General Stated Complaint: SOA Source of Information: Patient Exam Limitations: No Limitations History of Present Illness Date Seen by Provider: Nov 19, 2021 Time Seen by Provider: 19:42 Initial Comments To ER by EMS from home with reports of tongue swelling and shortness of breath that began prior to arrival. He took a pill that he found in a dumpster last night that was round green and he thinks that it said "Mylar [id number]". He states that he looked it up at the time and saw that it was an antipsychotic. He is not sure why he took it. He does not report any previous psychiatric history. He was not trying to hurt himself. 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 EMS gave 25 mg of Benadryl in route to the hospital for the tongue swelling. Timing/Duration: 1-3 Hours Severity: Moderate Associated Systoms: Denies Symptoms Allergies and Home Medications Allergies Coded Allergies: No Known Drug Allergies (Unverified , 02/27/09) Patient Home Medication List Home Medication List Reviewed: Yes Amoxicillin (Amoxicillin) 500 Mg Capsule, 1,000 MG PO TID Prescribed by: MARY POP on 07/06/182017 Amoxicillin (Amoxicillin) 500 Mg Capsule, 500 MG PO TID Prescribed by: MARY POP on 09/29/21 0241 Amoxicillin/Potassium Clav (Augmentin 875-125 Tablet) 1 Each Tablet, 1 EACH PO BID Prescribed by: GAIL RIVAS on 06/29/20 1102 Famotidine (Pepcid) 20 Mg Tablet, 20 MG PO BID PRN Prescribed by: HARI CRUZ MD on 05/02/19 1735 Gabapentin (Gabapentin) 300 Mg Capsule, 300 MG PO BID PRN for PAIN-MODERATE (5- 7) Prescribed by: MANISHA BRIGHT on 09/30/19 0119 Hydrocodone Bit/Acetaminophen (Lortab 5 Mg Tablet) 1 Tab Tab, 1-2 EACH PO Q6H PRN for PAIN-MODERATE Prescribed by: MANISHA BRIGHT on 09/30/19 0119 Hydrocodone/Acetaminophen (Hydrocodone-Acetamin 5-325 mg) 1 Each Tablet, 1 TAB PO Q4H PRN for PAIN-MODERATE (5-7) Prescribed by: GAIL RIVAS on 03/29/21 1315 Ketorolac Tromethamine (Ketorolac Tromethamine) 10 Mg Tablet, 10 MG PO TID Prescribed by: GAIL RIVAS on 03/29/21 1314 Ondansetron (Ondansetron Odt) 4 Mg Tab.rapdis, 4 MG SL Q4H PRN for NAUSEA/VOMITING Prescribed by: MANISHA BRIGHT on 12/23/19 0836 Ondansetron (Ondansetron Odt) 4 Mg Tab.rapdis, 4 MG PO Q6H PRN for NAUSEA/VOMITING Prescribed by: KATI SONG on 01/15/212244 Ondansetron (Ondansetron Odt) 8 Mg Tab.rapdis, 8 MG PO Q6H PRN for NAUSEA/VOMITING Prescribed by: GAIL RIVAS on 03/29/21 131 Pantoprazole Sodium (Pantoprazole Sodium) 40 Mg Tablet.dr, 40 MG PO DAILY Prescribed by: KATI SONG on 01/15/212244 Prednisone (Prednisone) 20 Mg Tab, 40 MG PO DAILY Prescribed by: HARI CRUZ MD on 05/02/19 173 Prednisone (Prednisone) 20 Mg Tab, 40 MG PO DAILY Prescribed by: MANISHA BRIGHT on 09/30/19 0119 Sucralfate (Carafate) 1 Gm Tablet, 1 GM PO QIDACHS Prescribed by: KATI SONG on 01/15/212244 Sulfamethoxazole/Trimethoprim (Bactrim Ds Tablet) 1 Each Tablet, 1 EACH PO BID Prescribed by: MARCO A MCCOLLUM on 02/16/17 2240 Sulfamethoxazole/Trimethoprim (Bactrim Ds Tablet) 1 Each Tablet, 1 EACH PO BID Prescribed by: DEANN STEELE on 04/06/19 0002 Sulfamethoxazole/Trimethoprim (Bactrim Ds Tablet) 1 Each Tablet, 1 EACH PO BID Prescribed by: GAIL RIVAS on 03/29/21 1314 Triamcinolone Acet (Triamcinolone Acetonide 0.1% Cream) 15 Gm Cr, 80 GM TP TID PRN for RASH Prescribed by: HARI CRUZ MD on 05/02/19 1735 Review of Systems Review of Systems Constitutional: see HPI EENTM: see HPI Respiratory: no symptoms reported Cardiovascular: no symptoms reported Genitourinary: no symptoms reported Musculoskeletal: no symptoms reported Skin: no symptoms reported Psychiatric/Neurological: No Symptoms Reported Hematologic/Lymphatic: No Symptoms Reported Past Ffqkeie-Imozwe-Pclxbe Hx Immunizations Up To Date Tetanus Booster (TDap): Unknown First/Initial COVID19 Vaccinat: Never Second COVID19 Vaccination Yung: Never Third COVID19 Vaccination Date: Never Seasonal Allergies Seasonal Allergies: No Past Medical History Surgeries: Yes Ear Surgery Respiratory: No Cardiac: No Neurological: No Reproductive Disorders: No Genitourinary: No Gastrointestinal: No Musculoskeletal: Yes (chronic left ankle pain 5 years) Arthritis Endocrine: Yes (history of thyroid nodule) HEENT: No Cancer: No Psychosocial: No Integumentary: No Blood Disorders: No Family Medical History Cancer Physical Exam Vital Signs Vital Signs - First Documented 11/19/21 19:20 Temp 36.2 Pulse 80 Resp 22 B/P (MAP) 144/84 (104) Pulse Ox 96 O2 Delivery Room Air Capillary Refill : Height, Weight, BMI Height: 5'8.00" Weight: 220lbs. oz. 99.011042ew; 31.00 BMI Method:Stated General Appearance: No Apparent Distress, WD/WN, Other (Diaphoretic on arrival. Cooperative. Pupils are equal. Has difficulty talking secondary to "thick tongue". Tongue does not appear swollen. There are no hives or rashes. He states that today his tongue has been sticking to the right side of his mouth more.) HEENT: PERRL/EOMI, TMs Normal Neck: Full Range of Motion, Normal Inspection Respiratory: No Accessory Muscle Use, No Respiratory Distress Cardiovascular: Normal Peripheral Pulses, Tachycardia Extremity: Normal Capillary Refill, Normal Inspection Neurologic/Psychiatric: Alert, Oriented x3 Skin: Normal Color, Warm/Dry Progress/Results/Core Measures Suspected Sepsis SIRS Temperature: Pulse: Respiratory Rate: Blood Pressure / Mean: Laboratory Tests 11/19/21 19:32: Creatinine 0.86, Total Bilirubin 0.5 Results/Orders Lab Results Laboratory Tests Test 11/19/21 19:32 Range/Units Sodium Level 137 135-145 MMOL/L Potassium Level 4.9 3.6-5.0 MMOL/L Chloride Level 105 98-107 MMOL/L Carbon Dioxide Level 19 L 21-32 MMOL/L Anion Gap 13 5-14 MMOL/L Blood Urea Nitrogen 13 7-18 MG/DL Creatinine 0.86 0.60-1.30 MG/DL Estimat Glomerular Filtration Rate 121 BUN/Creatinine Ratio 15 Glucose Level 127 H 70-105 MG/DL Calcium Level 10.2 H 8.5-10.1 MG/DL Corrected Calcium 8.5-10.1 MG/DL Total Bilirubin 0.5 0.1-1.0 MG/DL Aspartate Amino Transf (AST/SGOT) 52 H 5-34 U/L Alanine Aminotransferase (ALT/SGPT) 53 0-55 U/L Alkaline Phosphatase 71 40-136 U/L Total Protein 8.0 6.4-8.2 GM/DL Albumin 4.6 H 3.2-4.5 GM/DL My Orders Orders - GAIL RIVAS APRN Cbc With Automated Diff (11/19/21 19:41) Comprehensive Metabolic Panel (11/19/21 19:41) Vital Signs/I&O 11/19/21 19:20 Temp 36.2 Pulse 80 Resp 22 B/P (MAP) 144/84 (104) Pulse Ox 96 O2 Delivery Room Air Capillary Refill : Departure Communication (Admissions) 0418-Using a pill identifier the closest I can find is [id number] [id number] which is haloperidol 20 mg tablet. This would fit with his history of having looked this up and finding it to be an antipsychotic. It would also fit with a dystonic reaction that he presents with. We were only able to get 1 tube of blood due to poor venous access and he refused further attempts. During attempted IV start his speech improved and he states that the discomfort in his tongue was going away Impression Primary Impression: Acute dystonic reaction due to drugs Disposition: HOME, SELF-CARE Condition: Stable Departure-Patient Inst. Decision time for Depature: 19:46 Referrals: [facility] [place] (PCP/Family) Primary Care Physician Patient Instructions: Dystonia Add. Discharge Instructions: 1. It Should go without saying, but do not take pills that you find in a dumpster. GALI RIVAS APRN Nov 19, 2021 19:47
[2021-11-19 20:05] LABS: ALANINE AMINOTRANSFERASE 53 U/L (0-55); ALBUMIN 4.6 GM/DL (3.2-4.5); ALKALINE PHOSPHATASE 71 U/L (40-136); BILIRUBIN,TOTAL 0.5 MG/DL (0.1-1.0); BUN/CREATININE RATIO 15; CALCIUM 10.2 MG/DL (8.5-10.1); CARBON DIOXIDE 19 MMOL/L (21-32); CHLORIDE 105 MMOL/L (98-107); CREATININE SERUM 0.86 MG/DL (0.60-1.30); GFR ESTIMATED 121; GLUCOSE 127 MG/DL (70-105); POTASSIUM 4.9 MMOL/L (3.6-5.0); SODIUM 137 MMOL/L (135-145)
[2021-11-19 20:36] VITALS: BP 134/80
== END 2021-11-19 20:36 | disposition home or self-care (01) ==
LOC: EDUNIT# 19:18 → ER 19:19
DX: G24.02 Drug induced acute dystonia (principal)
CPT/HCPCS: 36415; 80053; 99283

== ENCOUNTER 2023-05-13 16:06 | Emergency (ER) | payer SELFPAY ==
--- NOTE | 2023-05-13 16:54 | ED Integumentary General ---
General Chief Complaint: Skin/Wound Problems Stated Complaint: LEFT EYE SWELLING - BLURRED VISION - HEADACHE Source: patient Exam Limitations: no limitations History of Present Illness Date Seen by Provider: May 13, 2023 Time Seen by Provider: 16:52 Initial Comments Patient is a 28-year-old male who presents ED with a left orbital pain, blurry vision, abscess to his left medial lower eyelid. Patient states symptoms started 2 weeks ago. Increased in size and redness. Reports left-sided eye pain, headache and blurry vision that has developed over the past week. Denies any fever, chills, nausea, vomiting, diarrhea. Was seen at the clinic [facility] about 2 weeks ago was placed on erythromycin ointment and has not followed up since that visit. Patient denies of any sore throat, chest pain, shortness of breath, cough Allergies and Home Medications Allergies Coded Allergies: No Known Drug Allergies (Unverified , 02/27/09) Patient Home Medication List Home Medication List Reviewed: Yes Amoxicillin (Amoxicillin) 500 Mg Capsule, 1,000 MG PO TID Prescribed by: MARY POP on 07/06/182017 Amoxicillin (Amoxicillin) 500 Mg Capsule, 500 MG PO TID Prescribed by: MARY POP on 09/29/21 0241 Amoxicillin/Potassium Clav (Augmentin 875-125 Tablet) 1 Each Tablet, 1 EACH PO BID Prescribed by: GAIL RIVAS on 06/29/20 1102 Famotidine (Pepcid) 20 Mg Tablet, 20 MG PO BID PRN Prescribed by: HARI CRUZ MD on 05/02/19 1735 Gabapentin (Gabapentin) 300 Mg Capsule, 300 MG PO BID PRN for PAIN-MODERATE (5- 7) Prescribed by: MANISHA BRIGHT on 09/30/19 0119 Hydrocodone Bit/Acetaminophen (Lortab 5 Mg Tablet) 1 Tab Tab, 1-2 EACH PO Q6H PRN for PAIN-MODERATE Prescribed by: MANISHA BRIGHT on 09/30/19 0119 Hydrocodone/Acetaminophen (Hydrocodone-Acetamin 5-325 mg) 1 Each Tablet, 1 TAB PO Q4H PRN for PAIN-MODERATE (5-7) Prescribed by: GAIL RIVAS on 03/29/21 1315 Ketorolac Tromethamine (Ketorolac Tromethamine) 10 Mg Tablet, 10 MG PO TID Prescribed by: GAIL RIVAS on 03/29/21 1314 Ondansetron (Ondansetron Odt) 4 Mg Tab.rapdis, 4 MG SL Q4H PRN for NAUSEA/VOMITING Prescribed by: MANISHA BRIGHT on 12/23/19 0836 Ondansetron (Ondansetron Odt) 4 Mg Tab.rapdis, 4 MG PO Q6H PRN for NAUSEA/VOMITING Prescribed by: KATI SONG on 01/15/21 224 Ondansetron (Ondansetron Odt) 8 Mg Tab.rapdis, 8 MG PO Q6H PRN for NAUSEA/VOMITING Prescribed by: GAIL RIVAS on 03/29/21 1314 Pantoprazole Sodium (Pantoprazole Sodium) 40 Mg Tablet.dr, 40 MG PO DAILY Prescribed by: KATI SONG on 01/15/212244 Prednisone (Prednisone) 20 Mg Tab, 40 MG PO DAILY Prescribed by: HARI CRUZ MD on 05/02/19 173 Prednisone (Prednisone) 20 Mg Tab, 40 MG PO DAILY Prescribed by: MANISHA BRIGHT on 09/30/19 0119 Sucralfate (Carafate) 1 Gm Tablet, 1 GM PO QIDACHS Prescribed by: KATI SONG on 01/15/212244 Sulfamethoxazole/Trimethoprim (Bactrim Ds Tablet) 1 Each Tablet, 1 EACH PO BID Prescribed by: MARCO A MCCOLLUM on 02/16/17 2240 Sulfamethoxazole/Trimethoprim (Bactrim Ds Tablet) 1 Each Tablet, 1 EACH PO BID Prescribed by: DEANN STEELE on 04/06/19 0002 Sulfamethoxazole/Trimethoprim (Bactrim Ds Tablet) 1 Each Tablet, 1 EACH PO BID Prescribed by: GAIL RIVAS on 03/29/21 1314 Triamcinolone Acet (Triamcinolone Acetonide 0.1% Cream) 15 Gm Cr, 80 GM TP TID PRN for RASH Prescribed by: HARI CRUZ MD on 05/02/19 173 Review of Systems Review of Systems Constitutional: No chills, No diaphoresis EENTM: blurred vision (left eye), other (Left orbital swelling or redness); No hearing loss, No ear pain Respiratory: No cough, No dyspnea on exertion Cardiovascular: No see HPI, No chest pain Gastrointestinal: No abdominal pain, No diarrhea, No nausea, No vomiting Genitourinary: No decreased output, No discharge Musculoskeletal: No back pain, No joint pain Skin: change in color Psychiatric/Neurological: Denies Anxiety, Denies Depressed All Other Systems Reviewed Negative Unless Noted: Yes Past Vvqpyou-Ikgdit-Dqybqv Hx Patient Social History Tobacco Use?: Yes Tobacco type used: Cigarettes Smoking Status: Current Everyday Smoker Substance use?: No Alcohol Use?: No Pt feels they are or have been: No Immunizations Up To Date Tetanus Booster (TDap): Unknown First/Initial COVID19 Vaccinat: Never Second COVID19 Vaccination Yung: Never Third COVID19 Vaccination Date: Never Seasonal Allergies Seasonal Allergies: No Past Medical History Surgery/Hospitalization HX: PMH;DIG. DISC DISEASE AND CERVICAL RADICULOPATHY, HTN SURGERY;DENIES. Surgeries: Yes Ear Surgery Respiratory: No Cardiac: No Neurological: No Reproductive Disorders: No Genitourinary: No Gastrointestinal: No Musculoskeletal: Yes (chronic left ankle pain 5 years) Arthritis Endocrine: Yes (history of thyroid nodule) HEENT: No Cancer: No Psychosocial: No Integumentary: No Blood Disorders: No Family Medical History Cancer Physical Exam Vital Signs Vital Signs - First Documented 05/13/23 05/13/23 16:34 20:34 Temp 37.0 Pulse 97 Resp 18 B/P (MAP) 137/86 (103) Pulse Ox 98 O2 Delivery Room Air Capillary Refill : General Appearance: WD/WN, no apparent distress HEENT: PERRL/EOMI, TMs normal, pharynx normal Neck: non-tender, full range of motion, supple Cardiovascular: regular rate, rhythm, no edema, no gallop, no JVD Respiratory: chest non-tender, lungs clear, normal breath sounds, no respiratory distress, no accessory muscle use Gastrointestinal: normal bowel sounds, non tender, soft, no organomegaly Back: normal inspection, no CVA tenderness Extremities: normal range of motion, non-tender, normal inspection, no pedal edema Neurologic/Psychiatric: director clinical applications II-XII nml as tested, no motor/sensory deficits, alert, normal mood/affect, oriented x 3 Skin: other (Pea-sized left medial lower eyelid abscess. Surrounding erythema and swelling. No erythematous injection. Pupils reactive to light. Extraocular movements intact without pain.) Skin Problem Character: abscess (Pea-sized abscess to left lower medial eye.), other Progress/Results/Core Measures Results/Orders Lab Results Laboratory Tests Test 05/13/23 17:02 05/13/23 17:43 Range/Units Sodium Level 142 135-145 MMOL/L Potassium Level 4.4 3.6-5.0 MMOL/L Chloride Level 111 H 98-107 MMOL/L Carbon Dioxide Level 20 L 21-32 MMOL/L Anion Gap 11 5-14 MMOL/L Blood Urea Nitrogen 11 7-18 MG/DL Creatinine 1.00 0.60-1.30 MG/DL Estimat Glomerular Filtration Rate 104 BUN/Creatinine Ratio 11 Glucose Level 104 70-105 MG/DL Calcium Level 9.6 8.5-10.1 MG/DL Corrected Calcium 9.4 8.5-10.1 MG/DL Total Bilirubin 0.4 0.1-1.0 MG/DL Aspartate Amino Transf (AST/SGOT) 28 5-34 U/L Alanine Aminotransferase (ALT/SGPT) 28 0-55 U/L Alkaline Phosphatase 81 40-136 U/L Total Protein 7.2 6.4-8.2 GM/DL Albumin 4.3 3.2-4.5 GM/DL White Blood Count 9.5 4.3-11.0 10^3/uL Red Blood Count 5.27 4.30-5.52 10^6/uL Hemoglobin 15.4 13.3-17.7 g/dL Hematocrit 47 40-54 % Mean Corpuscular Volume 88 80-99 fL Mean Corpuscular Hemoglobin 29 25-34 pg Mean Corpuscular Hemoglobin Concent 33 32-36 g/dL Red Cell Distribution Width 13.4 10.0-14.5 % Platelet Count 181 130-400 10^3/uL Mean Platelet Volume 10.7 9.0-12.2 fL Immature Granulocyte % (Auto) 0 % Neutrophils (%) (Auto) 62 42-75 % Lymphocytes (%) (Auto) 26 12-44 % Monocytes (%) (Auto) 6 0-12 % Eosinophils (%) (Auto) 5 0-10 % Basophils (%) (Auto) 1 0-10 % Neutrophils # (Auto) 5.9 1.8-7.8 10^3/uL Lymphocytes # (Auto) 2.5 1.0-4.0 10^3/uL Monocytes # (Auto) 0.6 0.0-1.0 10^3/uL Eosinophils # (Auto) 0.5 H 0.0-0.3 10^3/uL Basophils # (Auto) 0.1 0.0-0.1 10^3/uL Immature Granulocyte # (Auto) 0.0 0.0-0.1 10^3/uL My Orders Orders - WILLIAM ABBOTT Ct Orbit/Sella/Iac W (05/13/23 16:49) Cbc With Automated Diff (05/13/23 16:49) Comprehensive Metabolic Panel (05/13/23 16:49) Iv/Invasive Line Insertion .IV INSERT (05/13/23 16:49) Lidocaine 1% Inj 10 Ml (Xylocaine 1% Inj (05/13/23 17:30) Iohexol Injection (Omnipaque 350 Mg/Ml 1 (05/13/23 17:45) Received Contrast (Hold Metformin- Contr (05/13/23 17:45) Ns (Ivpb) 100 Ml (Sodium Chloride 0.9% 1 (05/13/23 17:45) Fentanyl Injection (Fentanyl Injection (05/13/23 19:29) Medications Given in ED Current Medications Medications Dose Ordered Sig/Jeffrey Route Start Time Stop Time Status Last Admin Dose Admin Iohexol 100 ml ONCE ONCE IV 05/13/23 17:45 05/13/23 17:46 DC 05/13/23 17:35 80 ML Lidocaine HCl 10 ml ONCE ONCE INJ 05/13/23 17:30 05/13/23 17:31 DC 05/13/23 17:42 10 ML Sodium Chloride 100 ml ONCE ONCE IV 05/13/23 17:45 05/13/23 17:46 DC 05/13/23 17:35 80 ML Vital Signs/I&O 05/13/23 05/13/23 16:34 20:34 Temp 37.0 Pulse 97 84 Resp 18 16 B/P (MAP) 137/86 (103) 130/80 Pulse Ox 98 97 O2 Delivery Room Air Room Air Departure Communication (PCP) Differential diagnosis left periorbital cellulitis, periorbital abscess, orbital cellulitis. On exam patient has a pea size developing abscess to the anterior medial inferior left orbit. Periorbital erythema and swelling. Patient states symptoms started 2 weeks ago. Was seen at the clinic prescribe erythromycin ointment without much improvement. On exam he does appear to be developing abscess. Mild pain with eye movement. Pupils reactive light. No erythematous injection. Visual acuity left eye 20/15, right eye 20/30, bilateral 20/15. States he is having left-sided hip pain and blurry vision with this. Due to current complaint CBC, CMP and CT scan of the orbit was ordered with contrast. CBC, CMP grossly unremarkable. Vital signs stable. CT scan of the orbit shows appears to be some soft tissue thickening and potentially very early fluid collection involving the anterior inferomedial aspect of the left orbit which does slightly abut the anteromedial aspect of the left globe. No retrobulbar abscess, fluid. No intraconal or extraconal mass or fluid collection is identified. Patient was discussed with ophthalmology at [facility]. States due to the abscess near the globe she believes a academic center such as [facility] should be consulted. Consulted and talked with Dr. Tiffany Majano ophthalmology. Recommended transfer to the ER to be evaluated. Concern with patient's symptoms. Patient may only require antibiotics at this time or may require admission for IV antibiotics. Recommend no incision and drainage at this time. This appears to be more superficial at this time however my concern as it abuts the left globe which potentially could worsen resulting in orbital cellulitis versus retrobulbar infection. She agreed to accept transfer to the ER. Patient will be transferred by POV. Currently medically stable for POV. No antibiotics was given at this time. They will evaluate patient in the ER prior Impression Primary Impression: Orbital abscess Disposition: 02 XFER SHT-TRM HOSP Condition: Stable Transfer Medically Cleared for Xfer: Yes Transfer Reason: Exceeds level of care Time Spoke to Accepting Phy: 19:56 Transfer Progress Notes Accepted Dr. Majano Transfer Time: 19:57 Transfer Facility: [facility] ED Method of Transfer: Private Vehicle Departure-Patient Inst. Referrals: [facility] [place] ([place]) Primary Care Physician Patient Instructions: PERIORBITAL CELLULITIS WILLIAM ABBOTT May 13, 2023 16:54
[2023-05-13 17:25] LABS: ALBUMIN 4.3 GM/DL (3.2-4.5); POTASSIUM 4.4 MMOL/L (3.6-5.0)
[2023-05-13 17:27] LABS: CALCIUM 9.6 MG/DL (8.5-10.1)
[2023-05-13 17:28] LABS: TOTAL PROTEIN 7.2 GM/DL (6.4-8.2)
[2023-05-13 17:30] LABS: BILIRUBIN,TOTAL 0.4 MG/DL (0.1-1.0)
[2023-05-13] MEDS ORDERED: LIDOCAINE 1% INJ 10 ML VIAL INJ ONE (17:30)
[2023-05-13] MEDS ORDERED: IOHEXOL 350 MG/ML 100 ML (OMNIPAQUE 350) VIAL IV ONE (17:45)
[2023-05-13] MEDS ORDERED: NS 100 ML (IVPB) BAG IV ONE (17:45)
[2023-05-13] MEDS ORDERED: HOLD METFORMIN - RECEIVED CONTRAST 20 ML VIAL IV SCH (17:45)
--- NOTE | 2023-05-13 17:49 | Diagnostic Imaging Report ---
INDICATION: Left eye soreness and pain for two weeks. TECHNIQUE: Axial imaging through the orbits was performed after the administration of intravenous contrast. Sagittal and coronal reformations were also performed. All CT scans use one or more of the following dose optimizing techniques: automated exposure control, MA and/or KvP adjustment based on a patient size and exam type, or iterative reconstruction. FINDINGS: There is a mucous retention cyst or polyp in the left maxillary sinus. Right maxillary sinus is clear. Both mastoid air cells as well as the sphenoid sinus, ethmoid and frontal sinus are clear. Both globes appear to be intact. Extraocular muscles are unremarkable. No intraconal or extraconal mass or fluid collection is identified. Optic nerves appear to be fairly symmetric. There is some minimal soft tissue thickening, with some minimal associated low attenuation along the inferior and medial aspect of the left globe anteriorly. Very early abscess cannot be entirely excluded. This does appear to abut the anterior and medial aspect of the left globe. No other abnormalities are seen. IMPRESSION: There appears to be some soft tissue thickening and potentially very early fluid collection involving the anterior inferomedial aspect of the left orbit which does slightly abut the anteromedial aspect of the left globe. No other significant abnormality is seen. Dictated by: Dictated on workstation # [id number]
[2023-05-13 17:52] LABS: BASOPHILS # (AUTO) 0.1 10^3/uL (0.0-0.1); BASOPHILS % (AUTO) 1 % (0-10); EOSINOPHILS # (AUTO) 0.5 10^3/uL (0.0-0.3); EOSINOPHILS % (AUTO) 5 % (0-10); HEMATOCRIT 47 % (40-54); HEMOGLOBIN 15.4 g/dL (13.3-17.7); LYMPHOCYTES # (AUTO) 2.5 10^3/uL (1.0-4.0); LYMPHOCYTES % (AUTO) 26 % (12-44); MEAN CORPUSCULAR HEMOGLOBIN 29 pg (25-34); MEAN CORPUSCULAR HGB CONC 33 g/dL (32-36); MEAN CORPUSCULAR VOLUME 88 fL (80-99); MEAN PLATELET VOLUME 10.7 fL (9.0-12.2); MONOCYTES # (AUTO) 0.6 10^3/uL (0.0-1.0); MONOCYTES % (AUTO) 6 % (0-12); NEUTROPHILS # (AUTO) 5.9 10^3/uL (1.8-7.8); NEUTROPHILS % (AUTO) 62 % (42-75); PLATELET COUNT 181 10^3/uL (130-400); WHITE BLOOD COUNT 9.5 10^3/uL (4.3-11.0)
[2023-05-13] MEDS ORDERED: fentaNYL INJECTION 100 MCG/2 ML VIAL IVP STA (19:29)
[2023-05-13 20:34] VITALS: BP 130/80
== END 2023-05-13 20:36 | disposition short-term general hospital (02) ==
LOC: EDUNIT# 16:06 → ER 16:07
DX: H05.012 Cellulitis of left orbit (principal); F17.210 Nicotine dependence, cigarettes, uncomplicated; Z28.310 Unvaccinated for COVID-19
CPT/HCPCS: 36415; 70481; 80053; 85025

== ENCOUNTER 2023-07-14 21:21 | Emergency (ER) | payer SELFPAY ==
[~2023-07-14] VITALS: Ht 172.7 cm; Wt 100.0 kg
[2023-07-14] MEDS ORDERED: morphine INJ 10 MG/ML 1ML (SYR OR VIAL) IVP STA (21:35)
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
[2023-07-14 21:37] LABS: BASOPHILS % (AUTO) 0 % (0-10); EOSINOPHILS # (AUTO) 0.3 10^3/uL (0.0-0.3); EOSINOPHILS % (AUTO) 3 % (0-10); HEMATOCRIT 47 % (40-54); HEMOGLOBIN 15.9 g/dL (13.3-17.7); LYMPHOCYTES # (AUTO) 2.7 10^3/uL (1.0-4.0); LYMPHOCYTES % (AUTO) 27 % (12-44); MEAN CORPUSCULAR HEMOGLOBIN 29 pg (25-34); MEAN CORPUSCULAR HGB CONC 34 g/dL (32-36); MEAN CORPUSCULAR VOLUME 86 fL (80-99); MEAN PLATELET VOLUME 10.1 fL (9.0-12.2); MONOCYTES # (AUTO) 0.6 10^3/uL (0.0-1.0); MONOCYTES % (AUTO) 6 % (0-12); NEUTROPHILS # (AUTO) 6.2 10^3/uL (1.8-7.8); NEUTROPHILS % (AUTO) 63 % (42-75); PLATELET COUNT 226 10^3/uL (130-400)
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
[2023-07-14] MEDS ORDERED: HOLD METFORMIN - RECEIVED CONTRAST 20 ML VIAL IV SCH (21:45)
[2023-07-14] MEDS ORDERED: IOHEXOL 350 MG/ML 100 ML (OMNIPAQUE 350) VIAL IV ONE (21:45)
[2023-07-14] MEDS ORDERED: NS 100 ML (IVPB) BAG IV ONE (21:45)
[2023-07-14 21:46] LABS: ALBUMIN 4.6 GM/DL (3.2-4.5); CHLORIDE 110 MMOL/L (98-107); POTASSIUM 3.7 MMOL/L (3.6-5.0); SODIUM 144 MMOL/L (135-145)
[2023-07-14 21:47] LABS: CALCIUM 9.7 MG/DL (8.5-10.1)
[2023-07-14 21:49] LABS: GLUCOSE 96 MG/DL (70-105); TOTAL PROTEIN 7.5 GM/DL (6.4-8.2)
[2023-07-14 21:50] LABS: CARBON DIOXIDE 23 MMOL/L (21-32)
[2023-07-14 21:51] LABS: BILIRUBIN,TOTAL 0.6 MG/DL (0.1-1.0)
[2023-07-14 21:52] LABS: ALKALINE PHOSPHATASE 78 U/L (40-136); CREATININE SERUM 1.03 MG/DL (0.60-1.30); GFR ESTIMATED 100
[2023-07-14 21:53] LABS: BUN/CREATININE RATIO 12
[2023-07-14 21:55] LABS: ALANINE AMINOTRANSFERASE 44 U/L (0-55)
[2023-07-14 21:56] LABS: LIPASE 24 U/L (8-78)
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
--- NOTE | 2023-07-14 22:22 | Diagnostic Imaging Report ---
PROCEDURE: CT chest, abdomen, and pelvis with contrast. TECHNIQUE: Multiple contiguous axial images were obtained through the chest, abdomen, and pelvis after the administration of intravenous contrast. Auto Exposure Controls were utilized during the CT exam to meet ALARA standards for radiation dose reduction. INDICATION: Thoracic and abdominal pain. Pain extends from the right neck to the right shoulder and chest into the abdomen. CT CHEST: There is moderate right convexity curvature of thoracic spine. Lungs appear clear. There is no evidence of pneumothorax. No significant pleural or pericardial fluid is identified. There is no evidence of pathologically enlarged adenopathy. No acute osseous abnormality is detected. CT abdomen and pelvis: There is left convexity curvature of lumbar spine. There is no focal hepatic, gallbladder, pancreatic, adrenal gland or splenic abnormality. Kidneys are unremarkable. Partially opacified urinary bladder is unremarkable without evidence of perivesicular contrast extravasation. There is no evidence of free fluid in the abdomen or pelvis. No acute osseous abnormalities identified although there is diffuse disc bulging and endplate spurring in the lumbar region. IMPRESSION: 1. No CT evidence of acute thoracic abnormality. 2. No evidence of acute abdominal or pelvic abnormality. 3. Moderate right convexity thoracic curvature and mild left convexity curvature of the lumbar spine are noted with lumbar degenerative disc disease present. Dictated by: Dictated on workstation # [id number]
[2023-07-14] MEDS ORDERED: ACHD5005 PO (22:29)
[2023-07-14 22:55] VITALS: BP 139/80
== END 2023-07-14 22:55 | disposition home or self-care (01) ==
LOC: EDUNIT# 21:21 → ER 21:23
DX: R07.89 Other chest pain (principal); M25.511 Pain in right shoulder; R10.11 Right upper quadrant pain; Z28.310 Unvaccinated for COVID-19; W20.8XXA Other cause of strike by thrown, projected or falling object, initial encounter
CPT/HCPCS: 36415; 71045; 71260; 73030; 74177; 80053; 83690; 85025; 86850; 86900; 86901; 96374